=== PATIENT | male | born 1945 | race Caucasian/White ===

== ENCOUNTER 2020-08-05 11:09 | Inpatient (IN) | payer MEDICARE, MEDICAID, SELFPAY ==
[2020-08-05] VITALS (7 sets, daily range): BP systolic 149–180; BP diastolic 68–81; PULSE 64–103; RESP 17–22; TEMP 36.8–37.2; O2SAT 95–98; BMI 28.7
--- NOTE | 2020-08-05 11:50 | XR_ITS ---
EXAMINATION: XR CHEST CLINICAL INFORMATION: Weakness COMPARISON: None TECHNIQUE: Frontal view of the chest was obtained. FINDINGS: The cardiac silhouette is slightly enlarged. Hilar and mediastinal contours are unremarkable. There are increased markings seen in the right perihilar region and at the left lung base questionable for infiltrate/pneumonia. There is no pleural effusion or pneumothorax. There are degenerative changes of the spine. XR/XR chest 1V IMPRESSION: Enlarged cardiac silhouette. Question left base and right perihilar infiltrate/pneumonia.
--- NOTE | 2020-08-05 11:50 | ECG_ITS ---
Test Reason : ARRHYTHMIA Blood Pressure : / mmHG Vent. Rate : 064 BPM Atrial Rate : 082 BPM P-R Int : 000 ms QRS Dur : 096 ms QT Int : 396 ms P-R-T Axes : 000 -27 084 degrees QTc Int : 408 ms Sinus rhythm with 2nd degree A-V block (Mobitz I) Minimal voltage criteria for LVH, may be normal variant Nonspecific ST and T wave abnormality Abnormal ECG When compared with ECG of 05-AUG-2020 11:49, Sinus rhythm is now with 2nd degree A-V block (Mobitz I) Referred By: Tank Charles Electronically Signed By:ZOIE PATE
--- NOTE | 2020-08-05 11:54 | ED.WEAKNESS ---
HPI - Weakness General Chief complaint: Weakness Stated complaint: GENERAL WEAKNESS, AMS Time Seen by Provider: 08/05/20 11:36 Source: EMS Mode of arrival: EMS Limitations: language barrier (Primarily Bahamian) History of Present Illness HPI Narrative: This is a 75-year-old male who is primarily Bahamian-speaking presenting via EMS from home with complaint of generalized weakness ongoing for past 1 week. He lives at home with his son who reports that he has been feeling unwell for the past 1 week he has been sleeping more complaining of body aches has had a several episodes of diarrhea and lack of energy. States he was concern for COVID-19 so the son came to the emergency room couple days ago had a COVID test that was negative and given the continued symptoms that prompt him to call the ambulance to be evaluated in the ED. per the son patient has not been to his primary care doctor in over 15 years is not currently taking any medication does not know if he has any medical problems. Related Data Home Medications Medication Instructions Recorded Confirmed No Known Home Meds 08/05/20 08/05/20 Allergies Allergy/AdvReac Type Severity Reaction Status Date / Time No Known Allergies Allergy Verified 08/05/20 11:46 Review of Systems Review of Systems: Constitutional: No Weight loss, No Fever, + Chills, No Night Sweats, + Fatigue, No Malaise ENT/Mouth: No Hearing loss, No Ear Pain, No Nasal Congestion, No Sinus Pain, No Hoarseness, No sore throat, No Rhinorrhea, No Swallowing Difficulty Eyes: No Eye Pain, No Swelling, No Redness, No Foreign Body, No Discharge, No Vision Changes Cardiovascular: No Chest Pain, No SOB, No Dyspnea on Exertion, No Orthopnea, No Edema, No Palpitations Respiratory: No Cough, No Sputum, No Wheezing, No Smoke Exposure, No Dyspnea Gastrointestinal: No Nausea, No Vomiting, + several episodes over the past few days Diarrhea, No Constipation, No abdominal Pain, No Hematochezia, No Melena Genitourinary: No Dysuria, No Urinary Frequency, No Hematuria, No Urinary Incontinence, No Urgency, No Flank Pain, No Urinary Flow Changes, No Hesitancy Musculoskeletal: No joint pain, + Myalgias, No Joint Swelling Skin: No Skin Lesions, No rash Neuro: No Weakness, No Numbness, No Paresthesias, No Loss of Consciousness, No Dizziness, No Headache Psych: No Social Issues Heme/Lymph: No Bruising, No Bleeding,No Lymphadenopathy Endocrine: No Polyuria, No Polydipsia, No Temperature Intolerance Yes all other systems are reviewed and are negative [facility] Social History Social History (Updated 08/05/20 @ 16:47 by Krystle Bosch NP) Household Members Other:: Lives with step son Alcohol intake: unknown Smoking Status: Unknown if ever smoked Last Used Substance: Unknown Advance Directives: No Advance Directives Information Provided: No Physical Exam Vital Signs: Vital Signs: Last Vital Signs Temp 98.2 F 08/05/20 15:48 Pulse 64 08/05/20 15:48 Resp 17 08/05/20 15:48 BP 171/72 H 08/05/20 15:48 Pulse Ox 95 08/05/20 15:48 Body Mass Index 28.7 Reviewed Const: Other: Lethargic appearing General: cooperative; No acute distress or intoxicated appearing Nutritional Appearance: average body habitus Orientation/consciousness: patient oriented x3 HENMT: Head: Yes normal to inspection Ears: hearing grossly normal bilaterally Eyes: General: appearance normal, both eyes and all related structures Visual Haines: normal visual haines by confrontation Neck: Neck: Yes normal visual inspection, No positive Brudzinski's sign, No positive Kernig's sign and No tender Thyroid: Thyroid normal Chest: Chest palpation & inspection: normal inspection of the chest Resp: Effort & Inspection: normal respiratory effort Auscultation: clear to auscultation bilaterally Cardio: Jugular venous distension: no JVD Rate: regular rate Rhythm: regular rhythm Heart sounds: S1 normal heart sound present and S2 normal heart sound present GI: Inspection: Yes normal to inspection Percussion: Yes normal to percussion Auscultation: normal bowel sounds : General: Yes no CVA tenderness Back/Spine/Pelvis: Back: no CVA tenderness Skin: General skin exam: no rashes or lesions noted Neuro: General: patient oriented x3 Extrem: General: Yes normal to inspection Course Reevaluation(s) Reevaluation #1: 1255 Call from lab with critical value of troponin of 174 Patient denies any chest pain or shortness of breath. Will discuss case with cardiology. Consultations Consultation #1: Case discussed with Dr. Welch cardiology recommendation for serial tropes. Given atypical less likely cardiac in etiology would not recommend anticoagulation. Will touch base after repeat troponin. Consultation #2: Repeat EKG question Issa repeat troponin without significant delta. Case discussed with cardiology Dr. Welch. From cardiac standpoint no indication to anticoagulate. Will monitor. Consultation #3: Case discussed with hospitalist for admission. MDM - Weakness Differential Diagnosis Differential diagnosis: Likely rhabdomyolysis, sepsis and dehydration (viral syndrome, COVID-19, electrolyte derangement) Medical Records Attestation: I reviewed the patient's medical records. Medical records narrative: Has isolated visit in 2012 otherwise no previous record here. Lab Data Attestation: I reviewed the patient's lab results. Result diagrams: 08/05/20 12:16 08/05/20 12:15 Labs: Lab Results 08/05/20 08/05/20 08/05/20 Range/Units 12:14 12:15 12:15 WBC (4.8-10.8) X10*3/uL RBC (4.60-5.80) X10*6/uL Hgb (14.0-18.0) g/dl Hct (42-52) % MCV (80-98) fL MCH (27.0-33.0) pg MCHC (31.0-36.0) g/dl RDW (11.0-16.0) % Plt Count (160-400) X10*3/uL MPV (9.4-12.4) fL Immature Gran % (Auto) (0.0-0.4) % Neut % (Auto) (45-73) % Lymph % (Auto) (20-40) % Martin % (Auto) (2-11) % Eos % (Auto) (0-4) % Baso % (Auto) (0-2) % Lymph # (Auto) (1.2-4.9) X10*3/uL Martin # (Auto) (0.1-1.2) X10*3/uL Eos # (Auto) (0.0-0.4) X10*3/uL Baso # (Auto) (0.0-0.2) X10*3/uL Abs Immat Gran (auto) (0.00-0.03) X10*3/uL Absolute Neuts (auto) (2.0-8.3) X10*3/uL Absolute Nucleated RBC (0.0-0.012) X10*3/uL Nucleated RBC % (auto) (0.0-0.2) /100WBC PT 15.6 H (10.8-13.0) SEC INR 1.3 H (0.9-1.1) D-Dimer 2463 NG/ML Sodium 143 (135-145) mmol/L Potassium 3.8 (3.3-5.1) mmol/l Chloride 104 (96-108) mmol/L Carbon Dioxide 24 (22-29) mmol/L Anion Gap 19 (12-20) BUN 21 H (9-16) mg/dL Creatinine 1.13 (0.5-1.4) mg/dL Estim Creat Clear Calc 65.9 Estimated GFR > 60 POC Glucose 210 H (60-115) mg/dL Random Glucose 234 H (60-115) mg/dL Estimat Average Glucose mg/dL Hemoglobin A1c % % Lactic Acid (0.5-2.0) mmol/L Calcium 9.4 (8.4-10.2) mg/dL Ferritin 2075 H (20-250) ng/mL Total Bilirubin 0.5 (0.0-1.0) mg/dL AST 54 H (5-37) U/L ALT 32 (0-40) U/L Alkaline Phosphatase 53 (39-117) U/L Lactate Dehydrogenase 340 H (118-273) U/L Total Creatine Kinase (38-174) U/L Troponin I High Sens (<3.5-35.0) ng/L C-Reactive Protein 13.28 H (< or = 0.50) mg/dL Total Protein 7.9 (6.5-8.0) g/dL Albumin 4.2 (3.5-5.0) g/dL Procalcitonin ng/mL Coronavirus (PCR) (Negative) Influenza Type A (PCR) (Negative) Influenza Type B (PCR) (Negative) RSV RNA Qual (PCR) (Negative) 08/05/20 08/05/20 08/05/20 Range/Units 12:15 12:15 12:16 WBC (4.8-10.8) X10*3/uL RBC (4.60-5.80) X10*6/uL Hgb (14.0-18.0) g/dl Hct (42-52) % MCV (80-98) fL MCH (27.0-33.0) pg MCHC (31.0-36.0) g/dl RDW (11.0-16.0) % Plt Count (160-400) X10*3/uL MPV (9.4-12.4) fL Immature Gran % (Auto) (0.0-0.4) % Neut % (Auto) (45-73) % Lymph % (Auto) (20-40) % Martin % (Auto) (2-11) % Eos % (Auto) (0-4) % Baso % (Auto) (0-2) % Lymph # (Auto) (1.2-4.9) X10*3/uL Martin # (Auto) (0.1-1.2) X10*3/uL Eos # (Auto) (0.0-0.4) X10*3/uL Baso # (Auto) (0.0-0.2) X10*3/uL Abs Immat Gran (auto) (0.00-0.03) X10*3/uL Absolute Neuts (auto) (2.0-8.3) X10*3/uL Absolute Nucleated RBC (0.0-0.012) X10*3/uL Nucleated RBC % (auto) (0.0-0.2) /100WBC PT (10.8-13.0) SEC INR (0.9-1.1) D-Dimer NG/ML Sodium (135-145) mmol/L Potassium (3.3-5.1) mmol/l Chloride (96-108) mmol/L Carbon Dioxide (22-29) mmol/L Anion Gap (12-20) BUN (9-16) mg/dL Creatinine (0.5-1.4) mg/dL Estim Creat Clear Calc Estimated GFR POC Glucose (60-115) mg/dL Random Glucose (60-115) mg/dL Estimat Average Glucose mg/dL Hemoglobin A1c % % Lactic Acid (0.5-2.0) mmol/L Calcium (8.4-10.2) mg/dL Ferritin (20-250) ng/mL Total Bilirubin (0.0-1.0) mg/dL AST (5-37) U/L ALT (0-40) U/L Alkaline Phosphatase (39-117) U/L Lactate Dehydrogenase (118-273) U/L Total Creatine Kinase 934 H (38-174) U/L Troponin I High Sens 175.7 H (<3.5-35.0) ng/L C-Reactive Protein (< or = 0.50) mg/dL Total Protein (6.5-8.0) g/dL Albumin (3.5-5.0) g/dL Procalcitonin ng/mL Coronavirus (PCR) POSITIVE A (Negative) Influenza Type A (PCR) NEGATIVE (Negative) Influenza Type B (PCR) NEGATIVE (Negative) RSV RNA Qual (PCR) NEGATIVE (Negative) 08/05/20 08/05/20 08/05/20 Range/Units 12:16 12:21 13:05 WBC 8.8 (4.8-10.8) X10*3/uL RBC 5.34 (4.60-5.80) X10*6/uL Hgb 14.8 (14.0-18.0) g/dl Hct 45.4 (42-52) % MCV 85.0 (80-98) fL MCH 27.7 (27.0-33.0) pg MCHC 32.6 (31.0-36.0) g/dl RDW 13.7 (11.0-16.0) % Plt Count 206 (160-400) X10*3/uL MPV 12.0 (9.4-12.4) fL Immature Gran % (Auto) 0.2 (0.0-0.4) % Neut % (Auto) 64.0 (45-73) % Lymph % (Auto) 25.1 (20-40) % Martin % (Auto) 10.6 (2-11) % Eos % (Auto) 0.0 (0-4) % Baso % (Auto) 0.1 (0-2) % Lymph # (Auto) 2.2 (1.2-4.9) X10*3/uL Martin # (Auto) 0.9 (0.1-1.2) X10*3/uL Eos # (Auto) 0.0 (0.0-0.4) X10*3/uL Baso # (Auto) 0.0 (0.0-0.2) X10*3/uL Abs Immat Gran (auto) 0.02 (0.00-0.03) X10*3/uL Absolute Neuts (auto) 5.6 (2.0-8.3) X10*3/uL Absolute Nucleated RBC 0.000 (0.0-0.012) X10*3/uL Nucleated RBC % (auto) 0.0 (0.0-0.2) /100WBC PT (10.8-13.0) SEC INR (0.9-1.1) D-Dimer NG/ML Sodium (135-145) mmol/L Potassium (3.3-5.1) mmol/l Chloride (96-108) mmol/L Carbon Dioxide (22-29) mmol/L Anion Gap (12-20) BUN (9-16) mg/dL Creatinine (0.5-1.4) mg/dL Estim Creat Clear Calc Estimated GFR POC Glucose (60-115) mg/dL Random Glucose (60-115) mg/dL Estimat Average Glucose mg/dL Hemoglobin A1c % % Lactic Acid 1.7 (0.5-2.0) mmol/L Calcium (8.4-10.2) mg/dL Ferritin (20-250) ng/mL Total Bilirubin (0.0-1.0) mg/dL AST (5-37) U/L ALT (0-40) U/L Alkaline Phosphatase (39-117) U/L Lactate Dehydrogenase (118-273) U/L Total Creatine Kinase (38-174) U/L Troponin I High Sens (<3.5-35.0) ng/L C-Reactive Protein (< or = 0.50) mg/dL Total Protein (6.5-8.0) g/dL Albumin (3.5-5.0) g/dL Procalcitonin 0.21 ng/mL Coronavirus (PCR) (Negative) Influenza Type A (PCR) (Negative) Influenza Type B (PCR) (Negative) RSV RNA Qual (PCR) (Negative) 08/05/20 08/05/20 Range/Units 14:32 16:28 WBC (4.8-10.8) X10*3/uL RBC (4.60-5.80) X10*6/uL Hgb (14.0-18.0) g/dl Hct (42-52) % MCV (80-98) fL MCH (27.0-33.0) pg MCHC (31.0-36.0) g/dl RDW (11.0-16.0) % Plt Count (160-400) X10*3/uL MPV (9.4-12.4) fL Immature Gran % (Auto) (0.0-0.4) % Neut % (Auto) (45-73) % Lymph % (Auto) (20-40) % Martin % (Auto) (2-11) % Eos % (Auto) (0-4) % Baso % (Auto) (0-2) % Lymph # (Auto) (1.2-4.9) X10*3/uL Martin # (Auto) (0.1-1.2) X10*3/uL Eos # (Auto) (0.0-0.4) X10*3/uL Baso # (Auto) (0.0-0.2) X10*3/uL Abs Immat Gran (auto) (0.00-0.03) X10*3/uL Absolute Neuts (auto) (2.0-8.3) X10*3/uL Absolute Nucleated RBC (0.0-0.012) X10*3/uL Nucleated RBC % (auto) (0.0-0.2) /100WBC PT (10.8-13.0) SEC INR (0.9-1.1) D-Dimer NG/ML Sodium (135-145) mmol/L Potassium (3.3-5.1) mmol/l Chloride (96-108) mmol/L Carbon Dioxide (22-29) mmol/L Anion Gap (12-20) BUN (9-16) mg/dL Creatinine (0.5-1.4) mg/dL Estim Creat Clear Calc Estimated GFR POC Glucose (60-115) mg/dL Random Glucose (60-115) mg/dL Estimat Average Glucose 183 mg/dL Hemoglobin A1c % 8.0 % Lactic Acid (0.5-2.0) mmol/L Calcium (8.4-10.2) mg/dL Ferritin (20-250) ng/mL Total Bilirubin (0.0-1.0) mg/dL AST (5-37) U/L ALT (0-40) U/L Alkaline Phosphatase (39-117) U/L Lactate Dehydrogenase (118-273) U/L Total Creatine Kinase (38-174) U/L Troponin I High Sens 190.0 H (<3.5-35.0) ng/L C-Reactive Protein (< or = 0.50) mg/dL Total Protein (6.5-8.0) g/dL Albumin (3.5-5.0) g/dL Procalcitonin ng/mL Coronavirus (PCR) (Negative) Influenza Type A (PCR) (Negative) Influenza Type B (PCR) (Negative) RSV RNA Qual (PCR) (Negative) Imaging Data CTA chest: Radiologist's impression: Angel Hagan 75 M [address] [place] [address] [address] Scan Report Signed Patient: Jame Hagan#: [id number] : 5Acct:[id number] Age/Sex: 75 / MADM Date: 08/05/20 Loc: .ED Attending Dr: Ordering Physician: Preston Jiménez NP Date of Service: 08/05/20 Procedure(s): CT angio chest PE protocol Accession Number(s): [id number] cc: Preston Jiménez [employer]CHO[employer]ARD~ EXAMINATION: CT ANGIOGRAM OF THE CHEST WITH AND WITHOUT CONTRAST (CT PULMONARY ANGIOGRAM FOR PE) CLINICAL INFORMATION: Reason for Exam Weakness/ hypoxia/ elevated ddimer COMPARISON: None TECHNIQUE: Prior to contrast administration, noncontrast localization images were obtained. Subsequently, multidetector volumetric imaging was performed from the thoracic inlet to below the diaphragms following the administration of 80 mL Omnipaque 350 intravenous contrast. No contrast reaction reported Sagittal, coronal, and MIP oblique sagittal reformatted images were obtained on the CT workstation, uploaded to PACS, and reviewed. This CT examination was performed using dose optimization techniques as appropriate, variously including the following: *Automated exposure control *Adjustment of mA and/or kV according to patient size (this includes techniques or standardized protocols for targeted exams where dose is matched to indication/reason for exam; i.e. extremities or head) *Use of iterative reconstruction technique Total exam dose-length product 373 mGy-cm FINDINGS: QUALITY OF STUDY/CONTRAST BOLUS: Satisfactory. PULMONARY ARTERIES: No central or segmental pulmonary emboli. THORACIC AORTA: No aneurysm or dissection. LUNG: The lungs are well-expanded with multiple patchy groundglass opacities seen in both lower lobes and upper lobes and lingula suggestive of inflammatory process. No consolidation seen. PLEURA: No pleural effusion or pneumothorax. MEDIASTINUM: Normal heart size. No pericardial effusion. No hilar or mediastinal lymphadenopathy. No evidence of septal bowing or right heart strain. CHEST WALL/AXILLA: No axillary or internal mammary lymphadenopathy. OSSEOUS STRUCTURES: There is moderate ventral spondylosis mid and lower dorsal spine. No lytic process seen. UPPER ABDOMEN: Visualized liver, spleen, pancreas and bilateral adrenal glands are unremarkable. There is a small 1.870 cyst upper pole left kidney. No reflux of contrast into the hepatic veins to suggest elevated right heart pressures. CT/CT angio chest PE protocol IMPRESSION: No evidence of PE. No evidence of aortic dissection or aneurysm. Diffuse groundglass opacities seen in both lungs suggestive of inflammatory process likely related to Covid disease. Correlate with vertical exam. 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 FINDINGS: The cardiac silhouette is slightly enlarged. Hilar and mediastinal contours are unremarkable. There are increased markings seen in the right perihilar region and at the left lung base questionable for infiltrate/pneumonia. There is no pleural effusion or pneumothorax. There are degenerative changes of the spine. XR/XR chest 1V IMPRESSION: Enlarged cardiac silhouette. Question left base and right perihilar infiltrate/pneumonia. Dictated By:JULIEN SHAFFER MD Signed By:<Electronically signed by JULIEN SHAFFER MD in OV>08/05/20 1214 DD/ 1150 TD/TT: Professor Of Physics: ANAYA ECG Data Interpretation: EKG 1. Normal sinus rhythm Criteria for LVH Nonspecific T-wave abnormalities No previous EKG 2. Sinus rhythm with 2nd degree A-V block (Mobitz I) Minimal voltage criteria for LVH, may be normal variant Nonspecific ST and T wave abnormality Abnormal ECG When compared with ECG of 05-AUG-2020 11:49, Sinus rhythm is now with 2nd degree A-V block (Mobitz I) QT has shortened Discharge Plan Discharge Clinical Impression: COVID-19, Elevated troponin, Weakness Patient Disposition: Admitted As Inpatient
[2020-08-05 12:18] LABS: Glucose, Whole Blood 210 mg/dL (60-115)
--- NOTE | 2020-08-05 12:22 | PC.NURSE ---
IV inserted and labs obtained includig COVID swab.
[2020-08-05 12:23] LABS: MANUAL DIFF FLAG NO
[2020-08-05 12:24] LABS: Basophils Percent Auto 0.1 % (0-2); Hematocrit 45.4 % (42-52); Hemoglobin 14.8 g/dl (14.0-18.0); Imm Gran Abs Auto 0.02 X10*3/uL (0.00-0.03); Imm Gran Pct Auto 0.2 % (0.0-0.4); Lymphocytes Absolute Auto 2.2 X10*3/uL (1.2-4.9); Lymphocytes Percent Auto 25.1 % (20-40); Mean Corpuscular HGB Conc 32.6 g/dl (31.0-36.0); Mean Corpuscular Hemoglobin 27.7 pg (27.0-33.0); Monocytes Absolute Auto 0.9 X10*3/uL (0.1-1.2); Monocytes Percent Auto 10.6 % (2-11); Neutrophils Absolute Auto 5.6 X10*3/uL (2.0-8.3); Platelet Count 206 X10*3/uL (160-400); Red Blood Count 5.34 X10*6/uL (4.60-5.80); Red Cell Distribution Width 13.7 % (11.0-16.0); White Blood Count 8.8 X10*3/uL (4.8-10.8)
[2020-08-05 12:34] LABS: INTERNATIONAL NORM RATIO 1.3 (0.9-1.1); Prothrombin Time 15.6 SEC (10.8-13.0)
[2020-08-05] MEDS: 0.9 % Sodium Chloride 500 ML IV (12:41)
[2020-08-05 12:47] LABS: Alanine Aminotransferase 32 U/L (0-40); Albumin Level 4.2 g/dL (3.5-5.0); Alkaline Phosphatase 53 U/L (39-117); Anion Gap 19 (12-20); Aspartate Amino Transferase 54 U/L (5-37); Bilirubin Total 0.5 mg/dL (0.0-1.0); Blood Urea Nitrogen 21 mg/dL (9-16); Calcium 9.4 mg/dL (8.4-10.2); Carbon Dioxide 24 mmol/L (22-29); Chloride 104 mmol/L (96-108); Creatinine Clr Calc Pharmacy 65.9; Estimated Glomerular Filt Rate > 60; Glucose Random 234 mg/dL (60-115); Potassium 3.8 mmol/l (3.3-5.1); Sodium 143 mmol/L (135-145); Total Protein 7.9 g/dL (6.5-8.0)
[2020-08-05 12:53] LABS: Troponin-I High Sensitivity 175.7 ng/L (<3.5-35.0)
[2020-08-05 13:15] LABS: C Reactive Protein 13.28 mg/dL (< or = 0.50); Lactate Dehydrogenase 340 U/L (118-273)
[2020-08-05 13:20] LABS: D Dimer 2463 NG/ML
[2020-08-05 13:31] LABS: Lactic Acid 1.7 mmol/L (0.5-2.0)
--- NOTE | 2020-08-05 13:37 | CT_ITS ---
EXAMINATION: CT ANGIOGRAM OF THE CHEST WITH AND WITHOUT CONTRAST (CT PULMONARY ANGIOGRAM FOR PE) CLINICAL INFORMATION: Reason for Exam Weakness/ hypoxia/ elevated ddimer COMPARISON: None TECHNIQUE: Prior to contrast administration, noncontrast localization images were obtained. Subsequently, multidetector volumetric imaging was performed from the thoracic inlet to below the diaphragms following the administration of 80 mL Omnipaque 350 intravenous contrast. No contrast reaction reported Sagittal, coronal, and MIP oblique sagittal reformatted images were obtained on the CT workstation, uploaded to PACS, and reviewed. This CT examination was performed using dose optimization techniques as appropriate, variously including the following: *Automated exposure control *Adjustment of mA and/or kV according to patient size (this includes techniques or standardized protocols for targeted exams where dose is matched to indication/reason for exam; i.e. extremities or head) *Use of iterative reconstruction technique Total exam dose-length product 373 mGy-cm FINDINGS: QUALITY OF STUDY/CONTRAST BOLUS: Satisfactory. PULMONARY ARTERIES: No central or segmental pulmonary emboli. THORACIC AORTA: No aneurysm or dissection. LUNG: The lungs are well-expanded with multiple patchy groundglass opacities seen in both lower lobes and upper lobes and lingula suggestive of inflammatory process. No consolidation seen. PLEURA: No pleural effusion or pneumothorax. MEDIASTINUM: Normal heart size. No pericardial effusion. No hilar or mediastinal lymphadenopathy. No evidence of septal bowing or right heart strain. CHEST WALL/AXILLA: No axillary or internal mammary lymphadenopathy. OSSEOUS STRUCTURES: There is moderate ventral spondylosis mid and lower dorsal spine. No lytic process seen. UPPER ABDOMEN: Visualized liver, spleen, pancreas and bilateral adrenal glands are unremarkable. There is a small 1.870 cyst upper pole left kidney. No reflux of contrast into the hepatic veins to suggest elevated right heart pressures. CT/CT angio chest PE protocol IMPRESSION: No evidence of PE. No evidence of aortic dissection or aneurysm. Diffuse groundglass opacities seen in both lungs suggestive of inflammatory process likely related to Covid disease. Correlate with vertical exam. VTE: Negative
[2020-08-05 13:38] LABS: Procalcitonin 0.21 ng/mL
[2020-08-05 13:59] LABS: Influenza A PCR NEGATIVE (Negative); Influenza B PCR NEGATIVE (Negative); Resp Syncy Virus RNA Qual PCR NEGATIVE (Negative)
[2020-08-05 14:13] LABS: SARS COV2 PCR INHOUSE POSITIVE (Negative)
[2020-08-05 14:20] LABS: Ferritin 2075 ng/mL (20-250)
--- NOTE | 2020-08-05 14:32 | PC.NURSE ---
Pt noted to be in a mobitz 1 heart block on the monitor. EKG obtained for confirmation. LEASING PROFESSIONAL aware. Repeat Troponin drawn.
[2020-08-05] MEDS: iohexoL 350 MG/ML 100 ML INFUS..BTL IV (14:59)
--- NOTE | 2020-08-05 15:53 | PC.NURSE ---
patient awake/alert watching tv, manager monitoring intact, pts vss, will continue to monitor.
--- NOTE | 2020-08-05 16:13 | PM.EVENT ---
Event Note Date of Service: 08/06/20 Event Note: Patient seen examined Patient as per ED physician has 6-7 days of symptoms-generalized weakness Denies any chest pain or shortness of breath or abdominal pain or fever or chills Somewhat vague in answering questions but otherwise could able to answer most of the questions. Also before having starting the symptoms patient was more active , but progressively getting generalized weak. Lab imaging , ekgreviewed Elevated LDH, C-reactive protein, D-dimer, elevated troponin, procalcitonin level 0.21, elevated CPK, EKG shows Mobitz type 1 CT shows bilateral lung opacities consistent with COVID. Mild hyperglycemia Physical exam: Cvs: rrr, [id number] , no murmur res: Fair air entry, no rales or wheezing abd: no rebound or guarding ,nt, bs present. ext pulses present , no cyanosis neuro: axo3 , nonfocal. In the ED found to have: Imaging patten probably COVID infection/pneumonia This patient is seen and examined with APC. Physical exam and assessment and plan coordinated in APCs note, In addition: COVID infection patten: Patient was given Decadron and antibiotics in ED Id evaluation Continue Decadron antibiotics CT negative for PE ED physician sandor-chastity unclear etiology? covid Mobitz type 1? Significance does not clear patient is asymptomatic currently. Will continue to monitor Will add cardiology evaluation. Hyperglycemia: Check hemoglobin A1c patient did not go to any doctor from many years. Elevated blood pressure : monitor blood pressure for now: If consistently elevated than may need to add antihypertensive.
[2020-08-05] MEDS: cefTRIAXone sodium 1 GM in 0.9 % Sodium Chloride 50 ML IV (16:18)
[2020-08-05] MEDS: dexAMETHasone sod phosphate 4 MG/ML VIAL 6 MG IVPUSH (16:19)
--- NOTE | 2020-08-05 16:23 | P.HPHOSP_ITS ---
History of Present Illness Date of Service: 08/05/20 Chief Complaint: WEAKNESS 75 year old man presenting with weakness. According to his step son, with whom he lives, (Angel Bernal [phone]) he has been very weak, shaking and slow to respond. He also mentioned that the patient had told him he was having diarrhea but he did not say that during the interview. Apparently the patient is usually more lively and communicative. His Covid PCR was positive, CT showed diffuse groundglass opacities. He had no fever or WBC. He was not requiring oxygen. He was given Rocephin, Azithromycin, decadron. He will be admitted for further management of Covid 19. Review of Systems Review of Systems: Denies any recent fever chills or decrease in appetite respiratory denies any shortness of breath coverage production cardiovascular is adjustment of any PND or edema gastrointestinal denies any dysphagia abdominal pain nausea vomiting or diarrhea genitourinary denies any dysuria frequency or hematuria musculoskeletal denies any joint pain or swelling neuropsych denies any weakness or seizures all other systems reviewed are negative PMFSH Cognitive capacity: Reports no medical problems however, he has not seen a PCP in 5 years Pertinent family history: unable to give details. Social History (Updated 08/05/20 @ 16:47 by Krystle Bosch NP) Household Members Other:: Lives with step son Alcohol intake: unknown Smoking Status: Unknown if ever smoked Last Used Substance: Unknown Advance Directives: No Advance Directives Information Provided: No Meds Allergies Allergy/AdvReac Type Severity Reaction Status Date / Time No Known Allergies Allergy Verified 08/05/20 11:46 Home Medications Medication Instructions Recorded Confirmed Type No Known Home Meds 08/05/20 08/05/20 History Physical Exam Vital Signs and Narrative: Vital Signs: Last Vital Signs Temp 98.2 F 08/05/20 15:48 Pulse 64 08/05/20 15:48 Resp 17 08/05/20 15:48 BP 171/72 H 08/05/20 15:48 Pulse Ox 95 08/05/20 15:48 Body Mass Index 28.7 Appearing in no acute distress, somewhat slow to respond head is normocephalic atraumatic eyes pupils are PERRLA sclera is anicteric mouth throat mucous membranes are intact and moist neck is supple no lymphadenopathy, no JVD noted lung sounds normal expansion heart regular rate abdomen is soft, nontender neuro patient is alert x3, no focal deficits Results Labs CBC and Chem 7: 08/05/20 12:16 08/05/20 12:15 Labs: Laboratory Results - last 24 hr 08/05/20 08/05/20 08/05/20 12:14 12:15 12:15 MCV MCH MCHC RDW Plt Count MPV Immature Gran % (Auto) Neut % (Auto) Lymph % (Auto) [place] % (Auto) Eos % (Auto) Baso % (Auto) Lymph # (Auto) [place] # (Auto) Eos # (Auto) Baso # (Auto) Abs Immat Gran (auto) Absolute Neuts (auto) Absolute Nucleated RBC Nucleated RBC % (auto) PT 15.6 H INR 1.3 H D-Dimer 2463 Anion Gap 19 Estim Creat Clear Calc 65.9 Estimated GFR > 60 POC Glucose 210 H Random Glucose 234 H Lactic Acid Calcium 9.4 Ferritin 2075 H Total Bilirubin 0.5 AST 54 H ALT 32 Alkaline Phosphatase 53 Lactate Dehydrogenase 340 H Total Creatine Kinase Troponin I High Sens C-Reactive Protein 13.28 H Total Protein 7.9 Albumin 4.2 Procalcitonin Coronavirus (PCR) Influenza Type A (PCR) Influenza Type B (PCR) RSV RNA Qual (PCR) 08/05/20 08/05/20 08/05/20 12:15 12:15 12:16 MCV MCH MCHC RDW Plt Count MPV Immature Gran % (Auto) Neut % (Auto) Lymph % (Auto) [place] % (Auto) Eos % (Auto) Baso % (Auto) Lymph # (Auto) [place] # (Auto) Eos # (Auto) Baso # (Auto) Abs Immat Gran (auto) Absolute Neuts (auto) Absolute Nucleated RBC Nucleated RBC % (auto) PT INR D-Dimer Anion Gap Estim Creat Clear Calc Estimated GFR POC Glucose Random Glucose Lactic Acid Calcium Ferritin Total Bilirubin AST ALT Alkaline Phosphatase Lactate Dehydrogenase Total Creatine Kinase 934 H Troponin I High Sens 175.7 H C-Reactive Protein Total Protein Albumin Procalcitonin Coronavirus (PCR) POSITIVE A Influenza Type A (PCR) NEGATIVE Influenza Type B (PCR) NEGATIVE RSV RNA Qual (PCR) NEGATIVE 08/05/20 08/05/20 08/05/20 12:16 12:21 13:05 MCV 85.0 MCH 27.7 MCHC 32.6 RDW 13.7 Plt Count 206 MPV 12.0 Immature Gran % (Auto) 0.2 Neut % (Auto) 64.0 Lymph % (Auto) 25.1 [place] % (Auto) 10.6 Eos % (Auto) 0.0 Baso % (Auto) 0.1 Lymph # (Auto) 2.2 [place] # (Auto) 0.9 Eos # (Auto) 0.0 Baso # (Auto) 0.0 Abs Immat Gran (auto) 0.02 Absolute Neuts (auto) 5.6 Absolute Nucleated RBC 0.000 Nucleated RBC % (auto) 0.0 PT INR D-Dimer Anion Gap Estim Creat Clear Calc Estimated GFR POC Glucose Random Glucose Lactic Acid 1.7 Calcium Ferritin Total Bilirubin AST ALT Alkaline Phosphatase Lactate Dehydrogenase Total Creatine Kinase Troponin I High Sens C-Reactive Protein Total Protein Albumin Procalcitonin 0.21 Coronavirus (PCR) Influenza Type A (PCR) Influenza Type B (PCR) RSV RNA Qual (PCR) 08/05/20 14:32 MCV MCH MCHC RDW Plt Count MPV Immature Gran % (Auto) Neut % (Auto) Lymph % (Auto) [place] % (Auto) Eos % (Auto) Baso % (Auto) Lymph # (Auto) [place] # (Auto) Eos # (Auto) Baso # (Auto) Abs Immat Gran (auto) Absolute Neuts (auto) Absolute Nucleated RBC Nucleated RBC % (auto) PT INR D-Dimer Anion Gap Estim Creat Clear Calc Estimated GFR POC Glucose Random Glucose Lactic Acid Calcium Ferritin Total Bilirubin AST ALT Alkaline Phosphatase Lactate Dehydrogenase Total Creatine Kinase Troponin I High Sens 190.0 H C-Reactive Protein Total Protein Albumin Procalcitonin Coronavirus (PCR) Influenza Type A (PCR) Influenza Type B (PCR) RSV RNA Qual (PCR) Imaging Radiologist's Impressions: Impressions Chest X-Ray 08/05/20 11:50 IMPRESSION: Enlarged cardiac silhouette. Question left base and right perihilar infiltrate/pneumonia. Chest CTA 08/05/20 13:37 IMPRESSION: No evidence of PE. No evidence of aortic dissection or aneurysm. Diffuse groundglass opacities seen in both lungs suggestive of inflammatory process likely related to Covid disease. Correlate with vertical exam. VTE: Negative Assessment and Plan (1) COVID-19: Status: Acute 75 year old man admitted with weakness and covid 19 related pna. CAP secondary to covid 19. Rocephin, azithromycin, decadron, ID consult, isolation. Supplemental oxygen as needed. Elevated troponin with Wenckebach on EKG. No chest pain, case discussed with cardiology, less likely ACS, will repeat troponin this evening and EKG. MOnitor on Telemetry. Weakness. Will need PT consult. Elevated blood pressure reading. No hx of hypertension. Will follow blood pressure closely Elevated glucose level. AIC 8.0, will start sliding scale, ADA diet DVT prophylaxis with Lovenox. Discussed with Dr. Solorzano Full code
[2020-08-05 16:44] LABS: Estimated Average Glucose 183 mg/dL
[2020-08-05] MEDS: Azithromycin 500 MG in 0.9 % Sodium Chloride 250 ML 125 MG IV (17:06)
[2020-08-05] MEDS: Enoxaparin Sodium 40 MG/0.4 ML SYRINGE SUBCUT (17:08)
--- NOTE | 2020-08-05 18:00 | ECG_ITS ---
Test Reason : RHYTHM CHNGE Blood Pressure : / mmHG Vent. Rate : 059 BPM Atrial Rate : 081 BPM P-R Int : 000 ms QRS Dur : 092 ms QT Int : 396 ms P-R-T Axes : 000 -34 088 degrees QTc Int : 392 ms Sinus rhythm with 2nd degree A-V block (Mobitz I) Left axis deviation Minimal voltage criteria for LVH, may be normal variant Nonspecific T wave abnormality Abnormal ECG When compared with ECG of 05-AUG-2020 14:14, No significant change was found Referred By: Tank Charles Electronically Signed By:ZOIE PATE
--- NOTE | 2020-08-05 18:04 | ECG_ITS ---
Test Reason : WEAKNESS Blood Pressure : / mmHG Vent. Rate : 081 BPM Atrial Rate : 081 BPM P-R Int : 202 ms QRS Dur : 096 ms QT Int : 396 ms P-R-T Axes : 067 -31 091 degrees QTc Int : 460 ms Normal sinus rhythm with sinus arrhythmia Left axis deviation Moderate voltage criteria for LVH, may be normal variant Nonspecific ST and T wave abnormality Abnormal ECG No previous ECGs available Referred By: Tank Charles Electronically Signed By:ZOIE PATE
[2020-08-05] MEDS: Insulin Lispro 100 UNIT/ML 3 ML VIAL SUBCUT (22:24)
--- NOTE | 2020-08-05 22:25 | PC.NURSE ---
patient awake/alert watching tv, vitals stable, greenhouse florist is currently nsr 80s, pt offers no c/o pain/discomfort, urinal at bedside, will continue to monitor.
[2020-08-05 23:56] LABS: Cholesterol 186 mg/dL; HDL Cholesterol 27 mg/dL; LDL Cholesterol Calculated 140 mg/dl; Lactate Dehydrogenase 289 U/L (118-273); Triglycerides 96 mg/dL
[2020-08-06] VITALS (7 sets, daily range): BP systolic 125–176; BP diastolic 75–90; PULSE 62–94; RESP 16–20; TEMP 36.8–37.3; O2SAT 94–96
[2020-08-06 00:10] LABS: Troponin-I High Sensitivity 185.2 ng/L (<3.5-35.0)
[2020-08-06 00:14] LABS: Procalcitonin 0.16 ng/mL
[2020-08-06 00:51] LABS: Ferritin 2352 ng/mL (20-250)
[2020-08-06 06:03] LABS: Eosinophils Percent Auto 0.1 % (0-4); Imm Gran Abs Auto 0.03 X10*3/uL (0.00-0.03); Imm Gran Pct Auto 0.3 % (0.0-0.4); Lymphocytes Absolute Auto 2.7 X10*3/uL (1.2-4.9); Lymphocytes Percent Auto 28.6 % (20-40); Mean Corpuscular HGB Conc 32.6 g/dl (31.0-36.0); Mean Corpuscular Hemoglobin 27.6 pg (27.0-33.0); Mean Corpuscular Volume 84.8 fL (80-98); Mean Platelet Volume 11.9 fL (9.4-12.4); Monocytes Absolute Auto 0.7 X10*3/uL (0.1-1.2); Monocytes Percent Auto 7.4 % (2-11); Neutrophils Absolute Auto 5.9 X10*3/uL (2.0-8.3); Neutrophils Percent Auto 63.6 % (45-73); Platelet Count 206 X10*3/uL (160-400); Red Blood Count 5.07 X10*6/uL (4.60-5.80); Red Cell Distribution Width 13.9 % (11.0-16.0); White Blood Count 9.3 X10*3/uL (4.8-10.8)
[2020-08-06 06:04] LABS: MANUAL DIFF FLAG NO
[2020-08-06 06:05] LABS: Glucose Urine UA NEG (NEG); Leukocyte Esterase Urine NEG (NEG); Nitrite Urine NEG (NEG); Specific Gravity - Urine 1.025 (1.005-1.025); Urine Blood 2+ (NEG); Urine Ketones 15 MG/DL (NEG); Urine Protein 2+ MG/DL (NEG-TRACE)
[2020-08-06 06:07] LABS: Appearance Urine CLEAR; Color Urine AMBER
[2020-08-06 06:08] LABS: INTERNATIONAL NORM RATIO 1.3 (0.9-1.1); Prothrombin Time 15.6 SEC (10.8-13.0)
[2020-08-06 06:24] LABS: Granular Casts Urine 0-2 /LPF; Mucus Urine 1+ /LPF; RBC Urine 0 /HPF (0); Squamous Epithelial Cell Urine TRACE /LPF; WBC Urine 0-2 /HPF (0-4)
[2020-08-06 06:29] LABS: Anion Gap 17 (12-20); Blood Urea Nitrogen 20 mg/dL (9-16); Carbon Dioxide 22 mmol/L (22-29); Chloride 107 mmol/L (96-108); Creatinine Clr Calc Pharmacy 91.9; Estimated Glomerular Filt Rate > 60; Glucose Random 200 mg/dL (60-115); Sodium 142 mmol/L (135-145)
[2020-08-06 06:33] LABS: Troponin-I High Sensitivity 137.3 ng/L (<3.5-35.0)
[2020-08-06 06:41] LABS: Glucose, Whole Blood 149 mg/dL (60-115)
[2020-08-06 06:41] LABS: Glucose, Whole Blood 222 mg/dL (60-115)
--- NOTE | 2020-08-06 07:52 | PC.NURSE ---
report taken from gio cruz pt lying in bed, nad. able to reposition self w one assist. vss. given breakfast. poc glucose checked. wctm for discharge needs.
[2020-08-06 09:44] LABS: Glucose, Whole Blood 188 mg/dL (60-115)
[2020-08-06] MEDS: dexAMETHasone sod phosphate 4 MG/ML VIAL 6 MG IVPUSH (09:51)
[2020-08-06] MEDS: Famotidine/PF 20 MG/2 ML VIAL IVPUSH (09:51)
--- NOTE | 2020-08-06 10:04 | PC.NURSE ---
damper fitter at bedside to check up on pt, medicated per emar, requesting ice water, given. tolerating po w/o issue. wctm.
--- NOTE | 2020-08-06 10:32 | PM.CNCAR ---
History of Present Illness History of Present Illness Date of Service: 08/06/20 Consult reason: troponin elevation Chief complaint: weakness, covid 19 Narrative: This consultation is regarding elevated troponins. History is mainly obtained by the hospitalist documentation. Apparently, he is quite lively and communicative at baseline. He was found to be weak, shaking and slow to respond. In this context, COVID was positive and CT had shown diffuse ground-glass opacities. He was admitted for further care. There is slight elevation of troponin. Hence we have been asked to see him. Per the nurse taking care of him, he has not complained of any chest pain or any other cardiac symptoms at this time. Review of Systems Review of Systems: Yes Unobtainable due to mental status [facility] Family History Pertinent family history: Unable to obtain Social History Social History (Updated 08/05/20 @ 16:47 by Krystle Bosch NP) Household Members Other:: Lives with step son Alcohol intake: unknown Smoking Status: Unknown if ever smoked Last Used Substance: Unknown Advance Directives: No Advance Directives Information Provided: No Meds Allergies Allergy/AdvReac Type Severity Reaction Status Date / Time No Known Allergies Allergy Verified 08/05/20 11:46 Home Medications Medication Instructions Recorded Confirmed Type No Known Home Meds 08/05/20 08/05/20 History Physical Exam Vital Signs: Vital Signs: Last Vital Signs Temp 98.3 F 08/06/20 09:54 Pulse 81 08/06/20 09:54 Resp 18 08/06/20 09:54 BP 159/82 H 08/06/20 09:54 Pulse Ox 96 08/06/20 09:54 Body Mass Index 28.7 Const: General: comfortable and no acute distress HENMT: Other: Unremarkable Neck: Neck: Yes normal visual inspection Chest: Chest palpation & inspection: normal inspection of the chest Resp: Auscultation: clear to auscultation bilaterally, no crackles and no wheezes Cardio: Jugular venous distension: no JVD Palpation: normal PMI Heart sounds: S1 normal heart sound present, S2 normal heart sound present, no gallops, no murmurs and no rubs GI: Palpation (GI): Soft to palpation Back/Spine/Pelvis: Other: unremarkable Skin: General skin exam: no rashes or lesions noted Extrem: General: Yes no clubbing, cyanosis or edema Psych: Mental Status: mental status grossly normal Results Labs and Meds Result diagrams: 08/06/20 05:49 08/06/20 05:49 Lab results: Laboratory Results - last 24 hr 08/05/20 08/05/20 08/05/20 12:14 12:15 12:15 WBC RBC Hgb Hct MCV MCH MCHC RDW Plt Count MPV Immature Gran % (Auto) Neut % (Auto) Lymph % (Auto) [place] % (Auto) Eos % (Auto) Baso % (Auto) Lymph # (Auto) [place] # (Auto) Eos # (Auto) Baso # (Auto) Abs Immat Gran (auto) Absolute Neuts (auto) Absolute Nucleated RBC Nucleated RBC % (auto) PT 15.6 H INR 1.3 H D-Dimer 2463 Sodium 143 Potassium 3.8 Chloride 104 Carbon Dioxide 24 Anion Gap 19 BUN 21 H Creatinine 1.13 Estim Creat Clear Calc 65.9 Estimated GFR > 60 POC Glucose 210 H Random Glucose 234 H Estimat Average Glucose Hemoglobin A1c % Lactic Acid Calcium 9.4 Ferritin 2075 H Total Bilirubin 0.5 AST 54 H ALT 32 Alkaline Phosphatase 53 Lactate Dehydrogenase 340 H Total Creatine Kinase Troponin I High Sens C-Reactive Protein 13.28 H Total Protein 7.9 Albumin 4.2 Triglycerides Cholesterol LDL Cholesterol, Calc HDL Cholesterol Procalcitonin Urine Color Urine Appearance Urine pH Ur Specific Savage Urine Protein Urine Glucose (UA) Urine Ketones Urine Blood Urine Nitrite Ur Leukocyte Esterase Urine RBC Urine WBC Ur Squamous Epith Cells Urine Bacteria Epithelial Casts Granular Casts Urine Mucus Coronavirus (PCR) Influenza Type A (PCR) Influenza Type B (PCR) RSV RNA Qual (PCR) 08/05/20 08/05/20 08/05/20 12:15 12:15 12:16 WBC RBC Hgb Hct MCV MCH MCHC RDW Plt Count MPV Immature Gran % (Auto) Neut % (Auto) Lymph % (Auto) [place] % (Auto) Eos % (Auto) Baso % (Auto) Lymph # (Auto) [place] # (Auto) Eos # (Auto) Baso # (Auto) Abs Immat Gran (auto) Absolute Neuts (auto) Absolute Nucleated RBC Nucleated RBC % (auto) PT INR D-Dimer Sodium Potassium Chloride Carbon Dioxide Anion Gap BUN Creatinine Estim Creat Clear Calc Estimated GFR POC Glucose Random Glucose Estimat Average Glucose Hemoglobin A1c % Lactic Acid Calcium Ferritin Total Bilirubin AST ALT Alkaline Phosphatase Lactate Dehydrogenase Total Creatine Kinase 934 H Troponin I High Sens 175.7 H C-Reactive Protein Total Protein Albumin Triglycerides Cholesterol LDL Cholesterol, Calc HDL Cholesterol Procalcitonin Urine Color Urine Appearance Urine pH Ur Specific [place] Urine Protein Urine Glucose (UA) Urine Ketones Urine Blood Urine Nitrite Ur Leukocyte Esterase Urine RBC Urine WBC Ur Squamous Epith Cells Urine Bacteria Epithelial Casts Granular Casts Urine Mucus Coronavirus (PCR) POSITIVE A Influenza Type A (PCR) NEGATIVE Influenza Type B (PCR) NEGATIVE RSV RNA Qual (PCR) NEGATIVE 08/05/20 08/05/20 08/05/20 12:16 12:21 13:05 WBC 8.8 RBC 5.34 Hgb 14.8 Hct 45.4 MCV 85.0 MCH 27.7 MCHC 32.6 RDW 13.7 Plt Count 206 MPV 12.0 Immature Gran % (Auto) 0.2 Neut % (Auto) 64.0 Lymph % (Auto) 25.1 [place] % (Auto) 10.6 Eos % (Auto) 0.0 Baso % (Auto) 0.1 Lymph # (Auto) 2.2 [place] # (Auto) 0.9 Eos # (Auto) 0.0 Baso # (Auto) 0.0 Abs Immat Gran (auto) 0.02 Absolute Neuts (auto) 5.6 Absolute Nucleated RBC 0.000 Nucleated RBC % (auto) 0.0 PT INR D-Dimer Sodium Potassium Chloride Carbon Dioxide Anion Gap BUN Creatinine Estim Creat Clear Calc Estimated GFR POC Glucose Random Glucose Estimat Average Glucose Hemoglobin A1c % Lactic Acid 1.7 Calcium Ferritin Total Bilirubin AST ALT Alkaline Phosphatase Lactate Dehydrogenase Total Creatine Kinase Troponin I High Sens C-Reactive Protein Total Protein Albumin Triglycerides Cholesterol LDL Cholesterol, Calc HDL Cholesterol Procalcitonin 0.21 Urine Color Urine Appearance Urine pH Ur Specific [place] Urine Protein Urine Glucose (UA) Urine Ketones Urine Blood Urine Nitrite Ur Leukocyte Esterase Urine RBC Urine WBC Ur Squamous Epith Cells Urine Bacteria Epithelial Casts Granular Casts Urine Mucus Coronavirus (PCR) Influenza Type A (PCR) Influenza Type B (PCR) RSV RNA Qual (PCR) 08/05/20 08/05/20 08/05/20 14:32 16:28 18:18 WBC RBC Hgb Hct MCV MCH MCHC RDW Plt Count MPV Immature Gran % (Auto) Neut % (Auto) Lymph % (Auto) [place] % (Auto) Eos % (Auto) Baso % (Auto) Lymph # (Auto) [place] # (Auto) Eos # (Auto) Baso # (Auto) Abs Immat Gran (auto) Absolute Neuts (auto) Absolute Nucleated RBC Nucleated RBC % (auto) PT INR D-Dimer Sodium Potassium Chloride Carbon Dioxide Anion Gap BUN Creatinine Estim Creat Clear Calc Estimated GFR POC Glucose 149 H Random Glucose Estimat Average Glucose 183 Hemoglobin A1c % 8.0 Lactic Acid Calcium Ferritin Total Bilirubin AST ALT Alkaline Phosphatase Lactate Dehydrogenase Total Creatine Kinase Troponin I High Sens 190.0 H C-Reactive Protein Total Protein Albumin Triglycerides Cholesterol LDL Cholesterol, Calc HDL Cholesterol Procalcitonin Urine Color Urine Appearance Urine pH Ur Specific [place] Urine Protein Urine Glucose (UA) Urine Ketones Urine Blood Urine Nitrite Ur Leukocyte Esterase Urine RBC Urine WBC Ur Squamous Epith Cells Urine Bacteria Epithelial Casts Granular Casts Urine Mucus Coronavirus (PCR) Influenza Type A (PCR) Influenza Type B (PCR) RSV RNA Qual (PCR) 08/05/20 08/05/20 08/05/20 21:33 23:18 23:18 WBC RBC Hgb Hct MCV MCH MCHC RDW Plt Count MPV Immature Gran % (Auto) Neut % (Auto) Lymph % (Auto) [place] % (Auto) Eos % (Auto) Baso % (Auto) Lymph # (Auto) [place] # (Auto) Eos # (Auto) Baso # (Auto) Abs Immat Gran (auto) Absolute Neuts (auto) Absolute Nucleated RBC Nucleated RBC % (auto) PT INR D-Dimer Sodium Potassium Chloride Carbon Dioxide Anion Gap BUN Creatinine Estim Creat Clear Calc Estimated GFR POC Glucose 222 H Random Glucose Estimat Average Glucose Hemoglobin A1c % Lactic Acid Calcium Ferritin 2352 H Total Bilirubin AST ALT Alkaline Phosphatase Lactate Dehydrogenase 289 H Total Creatine Kinase Troponin I High Sens C-Reactive Protein Total Protein Albumin Triglycerides 96 Cholesterol 186 LDL Cholesterol, Calc 140 HDL Cholesterol 27 Procalcitonin 0.16 Urine Color Urine Appearance Urine pH Ur Specific [place] Urine Protein Urine Glucose (UA) Urine Ketones Urine Blood Urine Nitrite Ur Leukocyte Esterase Urine RBC Urine WBC Ur Squamous Epith Cells Urine Bacteria Epithelial Casts Granular Casts Urine Mucus Coronavirus (PCR) Influenza Type A (PCR) Influenza Type B (PCR) RSV RNA Qual (PCR) 08/05/20 08/06/20 08/06/20 23:18 05:49 05:49 WBC 9.3 RBC 5.07 Hgb 14.0 Hct 43.0 MCV 84.8 MCH 27.6 MCHC 32.6 RDW 13.9 Plt Count 206 MPV 11.9 Immature Gran % (Auto) 0.3 Neut % (Auto) 63.6 Lymph % (Auto) 28.6 [place] % (Auto) 7.4 Eos % (Auto) 0.1 Baso % (Auto) 0.0 Lymph # (Auto) 2.7 [place] # (Auto) 0.7 Eos # (Auto) 0.0 Baso # (Auto) 0.0 Abs Immat Gran (auto) 0.03 Absolute Neuts (auto) 5.9 Absolute Nucleated RBC 0.000 Nucleated RBC % (auto) 0.0 PT 15.6 H INR 1.3 H D-Dimer Sodium Potassium Chloride Carbon Dioxide Anion Gap BUN Creatinine Estim Creat Clear Calc Estimated GFR POC Glucose Random Glucose Estimat Average Glucose Hemoglobin A1c % Lactic Acid Calcium Ferritin Total Bilirubin AST ALT Alkaline Phosphatase Lactate Dehydrogenase Total Creatine Kinase Troponin I High Sens 185.2 H C-Reactive Protein Total Protein Albumin Triglycerides Cholesterol LDL Cholesterol, Calc HDL Cholesterol Procalcitonin Urine Color Urine Appearance Urine pH Ur Specific [place] Urine Protein Urine Glucose (UA) Urine Ketones Urine Blood Urine Nitrite Ur Leukocyte Esterase Urine RBC Urine WBC Ur Squamous Epith Cells Urine Bacteria Epithelial Casts Granular Casts Urine Mucus Coronavirus (PCR) Influenza Type A (PCR) Influenza Type B (PCR) RSV RNA Qual (PCR) 08/06/20 08/06/20 08/06/20 05:49 05:55 05:58 WBC RBC Hgb Hct MCV MCH MCHC RDW Plt Count MPV Immature Gran % (Auto) Neut % (Auto) Lymph % (Auto) [place] % (Auto) Eos % (Auto) Baso % (Auto) Lymph # (Auto) [place] # (Auto) Eos # (Auto) Baso # (Auto) Abs Immat Gran (auto) Absolute Neuts (auto) Absolute Nucleated RBC Nucleated RBC % (auto) PT INR D-Dimer Sodium 142 Potassium 4.0 Chloride 107 Carbon Dioxide 22 Anion Gap 17 BUN 20 H Creatinine 0.81 Estim Creat Clear Calc 91.9 Estimated GFR > 60 POC Glucose Random Glucose 200 H Estimat Average Glucose Hemoglobin A1c % Lactic Acid Calcium 9.0 Ferritin Total Bilirubin AST ALT Alkaline Phosphatase Lactate Dehydrogenase Total Creatine Kinase Troponin I High Sens 137.3 H C-Reactive Protein Total Protein Albumin Triglycerides Cholesterol LDL Cholesterol, Calc HDL Cholesterol Procalcitonin Urine Color ALEXIA Urine Appearance CLEAR Urine pH 6.0 Ur Specific [place] 1.025 Urine Protein 2+ H Urine Glucose (UA) NEG Urine Ketones 15 Urine Blood 2+ H Urine Nitrite NEG Ur Leukocyte Esterase NEG Urine RBC 0 Urine WBC 0-2 Ur Squamous Epith Cells TRACE Urine Bacteria NONE Epithelial Casts 1-4 Granular Casts 0-2 Urine Mucus 1+ Coronavirus (PCR) Influenza Type A (PCR) Influenza Type B (PCR) RSV RNA Qual (PCR) 08/06/20 07:19 WBC RBC Hgb Hct MCV MCH MCHC RDW Plt Count MPV Immature Gran % (Auto) Neut % (Auto) Lymph % (Auto) [place] % (Auto) Eos % (Auto) Baso % (Auto) Lymph # (Auto) [place] # (Auto) Eos # (Auto) Baso # (Auto) Abs Immat Gran (auto) Absolute Neuts (auto) Absolute Nucleated RBC Nucleated RBC % (auto) PT INR D-Dimer Sodium Potassium Chloride Carbon Dioxide Anion Gap BUN Creatinine Estim Creat Clear Calc Estimated GFR POC Glucose 188 H Random Glucose Estimat Average Glucose Hemoglobin A1c % Lactic Acid Calcium Ferritin Total Bilirubin AST ALT Alkaline Phosphatase Lactate Dehydrogenase Total Creatine Kinase Troponin I High Sens C-Reactive Protein Total Protein Albumin Triglycerides Cholesterol LDL Cholesterol, Calc HDL Cholesterol Procalcitonin Urine Color Urine Appearance Urine pH Ur Specific [place] Urine Protein Urine Glucose (UA) Urine Ketones Urine Blood Urine Nitrite Ur Leukocyte Esterase Urine RBC Urine WBC Ur Squamous Epith Cells Urine Bacteria Epithelial Casts Granular Casts Urine Mucus Coronavirus (PCR) Influenza Type A (PCR) Influenza Type B (PCR) RSV RNA Qual (PCR) ECG Interpretation: EKG shows sinus rhythm, 59/min, with Mobitz type 1 second-degree heart block and some nonspecific ST-T changes. Imaging Radiologist's impression: Impressions Chest X-Ray 08/05/20 11:50 IMPRESSION: Enlarged cardiac silhouette. Question left base and right perihilar infiltrate/pneumonia. Chest CTA 08/05/20 13:37 IMPRESSION: No evidence of PE. No evidence of aortic dissection or aneurysm. Diffuse groundglass opacities seen in both lungs suggestive of inflammatory process likely related to Covid disease. Correlate with vertical exam. VTE: Negative Assessment and Plan (1) NSTEMI (non-ST elevated myocardial infarction): Status: Acute (2) COVID-19: Status: Acute Slightly elevated troponins in the setting of COVID infection. Possible underlying CAD. Less likely myocardial information. Does not appear to be acute plaque rupture. We can keep him on Lovenox for 48 hours. Aspirin. Otherwise with regard to the Wenckebach type heart block, no specific management. He can be monitored on telemetry for high-grade heart blocks.
[2020-08-06 11:55] LABS: Glucose, Whole Blood 191 mg/dL (60-115)
[2020-08-06] MEDS: Insulin Lispro 100 UNIT/ML 3 ML VIAL SUBCUT ×2 (13:09→22:55)
[2020-08-06] MEDS: Aspirin Enteric Coated 81 MG TABLET.DR PO (13:09)
[2020-08-06] MEDS: Enoxaparin Sodium 100 MG/ML SYRINGE 90 MG SUBCUT (13:09)
--- NOTE | 2020-08-06 16:24 | HO.PM.IMPN ---
Subjective Subjective Date of Service: 08/07/20 Interval History: COVID infection, elevated troponin Review of Systems Patient generalized weak, denies any chest pain Physical Exam Vital Signs: Vital Signs: Last Vital Signs Temp 98.3 F 08/06/20 09:54 Pulse 62 08/06/20 12:19 Resp 16 08/06/20 12:19 BP 176/90 H 08/06/20 12:19 Pulse Ox 95 08/06/20 12:19 Body Mass Index 28.7 Physical exam: Constitutional: Not in acute distress, seems weak genreally Cvs: [id number], [id number] , no murmur res: Fair air entry, no wheezing or rales abd: no rebound or guarding ,nt, bs present. ext pulses present , no cyanosis neuro: , nonfocal. Objective Data Current Medications Generic Name Dose Route Start Last Admin Trade Name Freq PRN Reason Stop Dose Admin Acetaminophen 650 mg 08/05/20 16:20 Acetaminophen 325 Mg Tablet PO Q6H PRN Pain, Mild (Pain Scale 1-3) Aspirin 81 mg 08/06/20 12:00 08/06/20 13:09 Aspirin Enteric Coated 81 Mg Tablet. PO 81 mg DAILY NICOLETTE Administration Dexamethasone Sodium Phosphate 6 mg 08/06/20 09:00 08/06/20 09:51 Dexamethasone Sod Phosphate 4 Mg/Ml Vial IVPUSH 08/15/20 09:01 6 mg DAILY NICOLETTE Administration Enoxaparin Sodium 90 mg 08/06/20 12:00 08/06/20 13:09 Enoxaparin Sodium 100 Mg/Ml Syringe SUBCUT 90 mg Q12H NICOLETTE Administration Famotidine 20 mg 08/06/20 09:00 08/06/20 09:51 Famotidine/Pf 20 Mg/2 Ml Vial IVPUSH 20 mg DAILY NICOLETTE Administration Ceftriaxone Sodium 1 gm/ 50 mls @ 100 mls/hr 08/05/20 16:30 08/05/20 17:13 Sodium Chloride IV Not Given Q24H NICOLETTE Azithromycin 500 mg/ Sodium 250 mls @ 125 mls/hr 08/05/20 16:30 08/05/20 17:13 Chloride IV Not Given Q24H NICOLETTE Insulin Human Lispro 0 unit 08/05/20 21:00 08/06/20 13:09 Insulin Lispro 100 Unit/Ml 3 Ml Vial SUBCUT 2 unit QIDACHS NICOLETTE Administration Protocol Ondansetron HCl 4 mg 08/05/20 16:20 Ondansetron Hcl 4 Mg/2 Ml Vial IVPUSH Q8H PRN Nausea and Vomiting Pharmacy Consult 1 each 08/05/20 11:51 Consult Rx Perform Med Rec MISCELLANE ONCE PRN Consult order Sodium Chloride 3 ml 08/06/20 00:00 08/06/20 15:48 0.9 % Sodium Chloride Flush 3 Ml Syringe IVFLUSH Not Given QSHIFT [facility] Labs CBC & Chem 7: 08/06/20 05:49 08/06/20 05:49 Microbiology Microbiology Results: Microbiology 08/05/20 13:05 Blood - Venous Blood Culture - Preliminary No growth after 24 hours. 08/05/20 12:57 Blood - Venous Blood Culture - Preliminary No growth after 24 hours. Assessment and Plan (1) NSTEMI (non-ST elevated myocardial infarction): Status: Acute (2) COVID-19: Status: Acute Assessment and Plan: 75 year old man admitted with weakness and covid 19 related pna. 1. covid 19. Rocephin, azithromycin, decadron, ID consult, isolation. Supplemental oxygen as needed. ID eval 2. nstemi:Elevated troponin with Wenckebach on EKG. seem by cardio added asa, lovenox ,defer statin due to Weakness. Will need PT consult. Elevated blood pressure reading. No hx of hypertension. Will follow blood pressure closely Elevated glucose level. AIC 8.0, will start sliding scale, ADA diet DVT prophylaxis with Lovenox.
[2020-08-06] MEDS: cefTRIAXone sodium 1 GM in 0.9 % Sodium Chloride 50 ML IV (16:52)
[2020-08-06 17:06] LABS: Glucose, Whole Blood 217 mg/dL (60-115)
[2020-08-06] MEDS: Azithromycin 500 MG in 0.9 % Sodium Chloride 250 ML 125 MG IV (17:37)
--- NOTE | 2020-08-06 20:26 | PC.NURSE ---
REPORT GIVEN TO CLAYTON[facility] ON [facility]MC. TRANSFERING/ADMITTING TO ROOM 485-1. COVID+, TRANSFERRED VIA ED BED BY JERZY VORA.
[2020-08-06 21:48] LABS: Glucose, Whole Blood 302 mg/dL (60-115)
[2020-08-06] MEDS: Metoprolol Tartrate 25 MG TABLET PO (22:29)
[2020-08-07] VITALS (9 sets, daily range): BP systolic 139–182; BP diastolic 53–82; PULSE 45–77; RESP 18–20; TEMP 36.4–38.7; O2SAT 92–99
--- NOTE | 2020-08-07 | ECG_ITS ---
Test Reason : Bradycardia Blood Pressure : / mmHG Vent. Rate : 036 BPM Atrial Rate : 059 BPM P-R Int : 000 ms QRS Dur : 092 ms QT Int : 486 ms P-R-T Axes : 055 -31 098 degrees QTc Int : 375 ms Sinus bradycardia with 2nd degree A-V block (Mobitz I) with 2:1 A-V conduction Left axis deviation Left ventricular hypertrophy with repolarization abnormality Abnormal ECG No significant changes when compared with the previous EKG of 05 aug 2020 Referred By: Anita Vega Electronically Signed By:ZOIE PATE
[2020-08-07] MEDS: Enoxaparin Sodium 100 MG/ML SYRINGE 90 MG SUBCUT ×3 (00:22→23:17)
[2020-08-07] MEDS: 0.9 % Sodium Chloride Flush 3 ML SYRINGE IVFLUSH ×3 (00:23→14:36)
[2020-08-07 09:04] LABS: Glucose, Whole Blood 107 mg/dL (60-115)
[2020-08-07] MEDS: dexAMETHasone sod phosphate 4 MG/ML VIAL 6 MG IVPUSH (09:14)
[2020-08-07] MEDS: Aspirin Enteric Coated 81 MG TABLET.DR PO (09:14)
[2020-08-07] MEDS: carvediloL 12.5 MG TABLET PO (09:22)
[2020-08-07] MEDS: Remdesivir 200 MG in 0.9 % Sodium Chloride 210 ML 105 MG IV (12:23)
[2020-08-07] MEDS: Acetaminophen 325 MG TABLET 650 MG PO (12:24)
[2020-08-07] MEDS: Insulin Lispro 100 UNIT/ML 3 ML VIAL SUBCUT ×3 (12:38→23:16)
[2020-08-07 12:40] LABS: Glucose, Whole Blood 179 mg/dL (60-115)
--- NOTE | 2020-08-07 12:41 | CONS_ITS ---
DATE OF SERVICE: 08/07/2020 INPATIENT PULMONARY CONSULTATION CHIEF COMPLAINT: Weakness. HISTORY OF PRESENT ILLNESS: Mr. Hagan is a 75-year-old gentleman, who currently was in his usual state of health, who was able to be completely functional until recently when he was found to be very weak, shaky, slow to respond. Therefore, he was brought to the [facility] ED for further evaluation. Upon arrival, he did have a COVID test that was positive and a CT scan demonstrating ground-glass opacities. He was on room air, saturating 94%. He was placed on IV antibiotics and also Decadron. Apparently, he has been more than a week since he has been sickly with symptoms. I will have to confirm that with the family. The patient is very confused. His inflammatory markers have been drastically elevated, very concerning. 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 He has also been on Decadron. The nurse's staff do mention that he is incontinent of urine and stool and he is not following any commands. Apparently on further evaluation of the notes, the son had been concern for his father, the patient about the positive COVID and he was tested and it did come back negative. However, given the continued symptoms, he was brought back to the ER via ambulance and then subsequently became positive. REVIEW OF SYSTEMS: Unable to be obtained as the patient is not following any commands. PAST MEDICAL HISTORY: Has not seen his primary care doctor. The documentations have been unclear, but within 5 to 15 years, he has not seen a physician. ALLERGIES: NO KNOWN DRUG ALLERGIES NOTED. MEDICATIONS: Has not been taking any. SOCIAL HISTORY: Lives with a stepson. He is a nonsmoker. FAMILY HISTORY: Not able to give at this point due to his altered mental status. PHYSICAL EXAMINATION: VITAL SIGNS: Stable. Saturating 92% on room air. GENERAL: He looks fatigued. He looks lethargic, very slow to answer any questions and not being coherent with any of the answers. HEENT: Pupils are equal and reactive to light. Oropharynx clear. NECK: Supple. CARDIAC: Regular rhythm and regular rate. ABDOMEN: Positive bowel sounds, soft. EXTREMITIES: No clubbing or cyanosis. LUNGS: Both diminished. NEURO: He is moving all his extremities, but is very slow. LABORATORY DATA: His CBC is normal. His coagulation is D-dimer is 2463, but now on full dose anticoagulation. His sugars are elevated. Calcium is normal. His troponin I is 137.3. His CPKs are also elevated. Again, his PCR was positive on the 17, not sure why he was tested before. IMAGING STUDIES: CT scan of the chest personally reviewed by me demonstrating patchy ground-glass opacities consistent with the viral pneumonia, negative for PE. ASSESSMENT: Mr. Hagan is a 75-year-old gentleman with a known history of altered mental status, more recently, now found to be COVID positive, significant inflammatory markers. IMPRESSION: 1. COVID-19 infection. The patient has significant inflammation in the body. The multiorgan involvement is not clear when he started having symptoms due to his altered mental status, so therefore I believe remdesivir should be used. Apparently, he was tested negative before suggesting that is more subacute prior to less than a week and would benefit from therapy. 2. Check antibodies to see if any of them . 3. Continue Decadron for full dose anticoagulation, especially with the cardiac involvement. 4. COVID pneumonia. The patient does have significant inflammation in the body. Decadron should help. Remdesivir should also help. 5. Altered mental status, likely some degree of encephalitis poor outcome with COVID-19. Further recommendations based on forthcoming data. I will reach out to Infectious Disease to see if we can provide him with remdesivir therapy. MD JORGE Edwards/EDMOND / [phone]
[2020-08-07 13:17] LABS: SARS COV2 IgG Positive (Negative)
--- NOTE | 2020-08-07 13:21 | MHC.CM.PN ---
Addendum entered by Edna Brand 08/07/20 15:35: NO PCP X 10-15 YRS Addendum entered by Edna Brand 08/07/20 13:32: Info for CM assessment was obtained from Patient, EMR and 2nd contact [place]. Original Note: IMM 08/07/20 Male 75 dx Covid+ [place] is Primary language. He can speak some kiswahili. He lives with his step son. He ambulates independently, no AD. He assist of a person prn. He is independent with ADLs. DP home with family transport. CM will follow.
--- NOTE | 2020-08-07 15:29 | P.PNIM_ITS ---
Subjective Subjective Date of Service: 08/08/20 Interval History: COVID infection, pneumonia Review of Systems Still feels generalized weak , denies any chest pain, has some short of breath Also feels very slow in answering questions Physical Exam Vital Signs: Vital Signs: Last Vital Signs Temp 99.1 F 08/07/20 13:52 Pulse 77 08/07/20 11:37 Resp 20 08/07/20 11:37 BP 140/76 H 08/07/20 11:37 Pulse Ox 93 08/07/20 11:37 Body Mass Index 28.7 Physical exam: Constitutional: Not in acute distress, but feels weak Neck supple Cvs: rrr, [id number] , no murmur res: clear to auscultation ,no rhonchii or wheezing abd: no rebound or guarding ,nt, bs present. ext pulses present , no cyanosis neuro: nonfocal. Objective Data Current Medications Generic Name Dose Route Start Last Admin Trade Name Freq PRN Reason Stop Dose Admin Acetaminophen 650 mg 08/05/20 16:20 08/07/20 12:24 Acetaminophen 325 Mg Tablet PO 650 mg Q6H PRN Administration Pain, Mild (Pain Scale 1-3) Aspirin 81 mg 08/06/20 12:00 08/07/20 09:14 Aspirin Enteric Coated 81 Mg Tablet. PO 81 mg DAILY NICOLETTE Administration Carvedilol 12.5 mg 08/07/20 09:00 08/07/20 09:22 Carvedilol 12.5 Mg Tablet PO 12.5 mg BID NICOLETTE Administration Protocol Dexamethasone Sodium Phosphate 6 mg 08/06/20 09:00 08/07/20 09:14 Dexamethasone Sod Phosphate 4 Mg/Ml Vial IVPUSH 08/15/20 09:01 6 mg DAILY NICOLETTE Administration Enoxaparin Sodium 90 mg 08/06/20 12:00 08/07/20 12:23 Enoxaparin Sodium 100 Mg/Ml Syringe SUBCUT 90 mg Q12H NICOLETTE Administration Ceftriaxone Sodium 1 gm/ 50 mls @ 100 mls/hr 08/05/20 16:30 08/06/20 17:23 Sodium Chloride IV Infused Q24H NICOLETTE Infusion Azithromycin 500 mg/ Sodium 250 mls @ 125 mls/hr 08/05/20 16:30 08/06/20 21:21 Chloride IV Infused Q24H NICOLETTE Infusion Remdesivir 100 mg/ Sodium 230 mls @ 115 mls/hr 08/08/20 11:00 Chloride IV 08/11/20 12:59 Q24H [facility] Insulin Human Lispro 0 unit 08/05/20 21:00 08/07/20 12:38 Insulin Lispro 100 Unit/Ml 3 Ml Vial SUBCUT 2 unit QIDACHS [facility] Administration Protocol Metoprolol Tartrate 25 mg 08/06/20 21:00 08/07/20 09:21 Metoprolol Tartrate 25 Mg Tablet PO Not Given BID [facility] Protocol Ondansetron HCl 4 mg 08/05/20 16:20 Ondansetron Hcl 4 Mg/2 Ml Vial IVPUSH Q8H PRN Nausea and Vomiting Pharmacy Consult 1 each 08/05/20 11:51 Consult Rx Perform Med Rec MISCELLANE ONCE PRN Consult order Sodium Chloride 3 ml 08/06/20 00:00 08/07/20 14:36 0.9 % Sodium Chloride Flush 3 Ml Syringe IVFLUSH 3 ml QSHIFT [facility] Administration Labs CBC & Chem 7: 08/06/20 05:49 08/08/20 06:16 Microbiology Microbiology Results: Microbiology 08/05/20 13:05 Blood - Venous Blood Culture - Preliminary No growth after 48 hours. 08/05/20 12:57 Blood - Venous Blood Culture - Preliminary No growth after 48 hours. Assessment and Plan (1) NSTEMI (non-ST elevated myocardial infarction): Status: Acute (2) COVID-19: Status: Acute Assessment and Plan: 75 year old man admitted with weakness and covid 19 related pna. 1. covid 19 has intermittent fevers -tmax 100.7*f Continue decadron, ID consult, isolation. Supplemental oxygen as needed. COVID antibody added Added remdesivir ID eval and pulm eval pending 2. nstemi:Elevated troponin with Wenckebach on EKG. seem by cardio-continue asa, lovenox ,defer statin due to rhabdo/mild elevated lfts's 3.Elevated blood pressure reading. No hx of hypertension. Will follow blood pressure closely 4. new onset dm: Elevated glucose level. AIC 8.0, will start sliding scale, ADA diet DVT prophylaxis with Lovenox.
[2020-08-07 16:48] LABS: Glucose, Whole Blood 238 mg/dL (60-115)
[2020-08-07] MEDS: cefTRIAXone sodium 1 GM in 0.9 % Sodium Chloride 50 ML IV (16:54)
[2020-08-07 17:35] LABS: Anion Gap 15 (12-20); Blood Urea Nitrogen 26 mg/dL (9-16); Calcium 8.6 mg/dL (8.4-10.2); Carbon Dioxide 26 mmol/L (22-29); Chloride 104 mmol/L (96-108); Creatinine Clr Calc Pharmacy 78.4; Estimated Glomerular Filt Rate > 60; Glucose Random 263 mg/dL (60-115); Potassium 4.1 mmol/l (3.3-5.1); Sodium 141 mmol/L (135-145)
[2020-08-07] MEDS: Azithromycin 500 MG in 0.9 % Sodium Chloride 250 ML 125 MG IV (17:35)
[2020-08-07 17:56] LABS: Alanine Aminotransferase 26 U/L (0-40); Albumin Level 3.5 g/dL (3.5-5.0); Alkaline Phosphatase 50 U/L (39-117); Aspartate Amino Transferase 43 U/L (5-37); Bilirubin Direct 0.3 mg/dL (0.0-0.5); Bilirubin Total 0.5 mg/dL (0.0-1.0); Total Protein 6.6 g/dL (6.5-8.0)
[2020-08-07 21:26] LABS: Glucose, Whole Blood 276 mg/dL (60-115)
--- NOTE | 2020-08-07 21:29 | PM.EVENT ---
Event Note Date of Service: 08/07/20 Event Note: Received a call from nurse the patient is bradycardic dropping to the 30s while sleeping. He comes up to the 60s while awake. Patient is asymptomatic. EKG shows Mobitz type 1. Case was discussed with Cardiology. No commended no intervention. On review of his medications was noted the patient is on carvedilol as well as metoprolol. I will hold metoprolol and carvidalol at this time given his low HR. Cardiology is consulted
[2020-08-08] VITALS (7 sets, daily range): BP systolic 131–146; BP diastolic 57–73; PULSE 54–68; RESP 16–30; TEMP 36.4–37.4; O2SAT 94–98
[2020-08-08] MEDS: Atropine Sulfate 1 MG/10 ML SYRINGE 0.5 MG IVPUSH (00:12)
[2020-08-08] MEDS: 0.9 % Sodium Chloride Flush 3 ML SYRINGE IVFLUSH ×4 (00:21→20:36)
[2020-08-08 07:33] LABS: Alanine Aminotransferase 23 U/L (0-40); Albumin Level 3.3 g/dL (3.5-5.0); Alkaline Phosphatase 47 U/L (39-117); Anion Gap 12 (12-20); Aspartate Amino Transferase 31 U/L (5-37); Bilirubin Direct 0.2 mg/dL (0.0-0.5); Bilirubin Total 0.4 mg/dL (0.0-1.0); Blood Urea Nitrogen 26 mg/dL (9-16); Carbon Dioxide 29 mmol/L (22-29); Chloride 106 mmol/L (96-108); Creatinine Clr Calc Pharmacy 86.6; Estimated Glomerular Filt Rate > 60; Glucose Random 144 mg/dL (60-115); Potassium 4.3 mmol/l (3.3-5.1); Sodium 143 mmol/L (135-145); Total Protein 6.4 g/dL (6.5-8.0)
[2020-08-08 07:55] LABS: Glucose, Whole Blood 146 mg/dL (60-115)
[2020-08-08] MEDS: Aspirin Enteric Coated 81 MG TABLET.DR PO (10:17)
[2020-08-08] MEDS: dexAMETHasone sod phosphate 4 MG/ML VIAL 6 MG IVPUSH (10:17)
[2020-08-08 11:12] LABS: Glucose, Whole Blood 193 mg/dL (60-115)
[2020-08-08] MEDS: Remdesivir 100 MG in 0.9 % Sodium Chloride 230 ML 115 MG IV (11:54)
--- NOTE | 2020-08-08 12:45 | P.PNIM_ITS ---
Subjective Subjective Date of Service: 08/09/20 Interval History: COVID infection, Mobitz type 1 Review of Systems Still feels short of breath, denies any chest pain or abdominal pain or fever or chills At episode of bradycardia overnight ? related to bb which discontinued yesterday. Physical Exam Vital Signs: Vital Signs: Last Vital Signs Temp 98.7 F 08/08/20 11:06 Pulse 67 08/08/20 11:06 Resp 30 H 08/08/20 11:06 BP 134/65 08/08/20 11:06 Pulse Ox 98 08/08/20 11:06 Body Mass Index 28.7 Physical exam: Constitutional: Not in acute distress Cvs: rrr, [id number] , no murmur res: clear to auscultation ,no rhonchii or wheezing abd: no rebound or guarding ,nt, bs present. ext pulses present , no cyanosis neuro: more alert aox2-3 , nonfocal. Objective Data Current Medications Generic Name Dose Route Start Last Admin Trade Name Freq PRN Reason Stop Dose Admin Acetaminophen 650 mg 08/05/20 16:20 08/07/20 12:24 Acetaminophen 325 Mg Tablet PO 650 mg Q6H PRN Administration Pain, Mild (Pain Scale 1-3) Aspirin 81 mg 08/06/20 12:00 08/08/20 10:17 Aspirin Enteric Coated 81 Mg Tablet. PO 81 mg DAILY NICOLETTE Administration Dexamethasone Sodium Phosphate 6 mg 08/06/20 09:00 08/08/20 10:17 Dexamethasone Sod Phosphate 4 Mg/Ml Vial IVPUSH 08/15/20 09:01 6 mg DAILY NICOLETTE Administration Enoxaparin Sodium 40 mg 08/08/20 22:45 Enoxaparin Sodium 40 Mg/0.4 Ml Syringe SUBCUT Q24H NICOLETTE Ceftriaxone Sodium 1 gm/ 50 mls @ 100 mls/hr 08/05/20 16:30 08/07/20 17:42 Sodium Chloride IV Infused Q24H NICOLETTE Infusion Azithromycin 500 mg/ Sodium 250 mls @ 125 mls/hr 08/05/20 16:30 08/07/20 19:30 Chloride IV Infused Q24H NICOLETTE Infusion Remdesivir 100 mg/ Sodium 230 mls @ 115 mls/hr 08/08/20 11:00 08/08/20 11:54 Chloride IV 08/11/20 12:59 115 mls/hr Q24H NICOLETTE Administration Insulin Human Lispro 0 unit 08/05/20 21:00 08/08/20 10:18 Insulin Lispro 100 Unit/Ml 3 Ml Vial SUBCUT Not Given QIDACHS [facility] Protocol Nifedipine 30 mg 08/09/20 09:00 Nifedipine Er 30 Mg Tab.Er.24 PO DAILY [facility] Protocol Ondansetron HCl 4 mg 08/05/20 16:20 Ondansetron Hcl 4 Mg/2 Ml Vial IVPUSH Q8H PRN Nausea and Vomiting Pharmacy Consult 1 each 08/05/20 11:51 Consult Rx Perform Med Rec MISCELLANE ONCE PRN Consult order Sodium Chloride 3 ml 08/06/20 00:00 08/08/20 10:17 0.9 % Sodium Chloride Flush 3 Ml Syringe IVFLUSH 3 ml QSHIFT NICOLETTE Administration Labs CBC & Chem 7: 08/06/20 05:49 08/09/20 09:01 Microbiology Microbiology Results: Microbiology 08/05/20 13:05 Blood - Venous Blood Culture - Preliminary No growth after 48 hours. 08/05/20 12:57 Blood - Venous Blood Culture - Preliminary No growth after 48 hours. Assessment and Plan (1) NSTEMI (non-ST elevated myocardial infarction): Status: Acute (2) COVID-19: Problem details: He has had concerns over COVID infection with hypoxia He meets criteria for Dexamethasone and Remdesivir Status: Acute Assessment and Plan: 75 year old man admitted with weakness and covid 19 related pna. 1. covid 19 has intermittent fevers -tmax 101.7*f last night Continue decadron, remdesvir. Supplemental oxygen as needed. COVID antibody-positive ID eval and pulm eval pending 2. nstemi:Elevated troponin with Wenckebach on EKG. seem by cardio-continue asa, lovenox completed 48hrs ,defer statin due to rhabdo/mild elevated lfts's has jefferson 1 ? bradycardia or bb might have contributed which stopped yesterday moniter closely 3.Elevated blood pressure reading. No hx of hypertension. Will follow blood pressure closely 4. new onset dm: Elevated glucose level. AIC 8.0, will start sliding scale, ADA diet DVT prophylaxis with Lovenox.
[2020-08-08] MEDS: Insulin Lispro 100 UNIT/ML 3 ML VIAL SUBCUT ×3 (12:56→20:36)
--- NOTE | 2020-08-08 15:11 | MHC.CM.PN ---
Pt remains on the [facility] unit for COVID related treatment and is s/p NSTEMI. No PCP on file and documentation that pt has not received medical care >10 yrs. Call placed to pt's spouse at number listed: out of service. Call placed to secondary contact, Hildi: message left. CM will assist pt with obtaining a new PCP once it has confirmed he does not have a current one or has preferences for a specific provider.
[2020-08-08] MEDS: cefTRIAXone sodium 1 GM in 0.9 % Sodium Chloride 50 ML IV (16:06)
[2020-08-08] MEDS: Azithromycin 500 MG in 0.9 % Sodium Chloride 250 ML 125 MG IV (16:08)
[2020-08-08 16:33] LABS: Glucose, Whole Blood 213 mg/dL (60-115)
[2020-08-08 20:03] LABS: Glucose, Whole Blood 299 mg/dL (60-115)
[2020-08-08] MEDS: Enoxaparin Sodium 40 MG/0.4 ML SYRINGE SUBCUT (20:36)
--- NOTE | 2020-08-08 22:12 | P.CNID_ITS ---
History of Present Illness Data of Consult Service Date: 08/08/20 Requesting physician: Nito Solorzano Primary Care Provider: Unknown Physician HPI Reason for consult: shortness of breath,COVID He presents to hospital with shortness of breath for a week His son has COVID He has weakness as well and no neurologic changes Review of Systems 2 Review of Systems: Yes all other systems are reviewed and are negative [facility] Past Medical History Medical History (Updated 08/19/20 @ 00:00 by Alison Ortega) Pneumonia Social History Social History Household Members: Family Housing: Apartment Alcohol intake: unknown Smoking Status: Unknown if ever smoked Substance Use Type: Unknown service: No Current occupational status: disabled Meds Allergies Allergy/AdvReac Type Severity Reaction Status Date / Time No Known Allergies Allergy Verified 08/05/20 11:46 Home Medications Medication Instructions Recorded Confirmed Type No Known Home Meds 08/05/20 08/05/20 History Physical Exam Vital Signs: Vital Signs: Last Vital Signs Temp 97.7 F 08/08/20 20:00 Pulse 68 08/08/20 20:00 Resp 24 H 08/08/20 20:00 BP 131/57 L 08/08/20 20:00 Pulse Ox 98 08/08/20 20:00 Body Mass Index 28.7 Const: General: cooperative HENMT: Head: Yes normal to inspection Mouth: Normal oral and palatal mucosa present Eyes: General: appearance normal, both eyes and all related structures Resp: Effort & Inspection: normal respiratory effort Cardio: Rate: regular rate Rhythm: regular rhythm GI: Inspection: Yes normal to inspection Skin: General skin exam: no rashes or lesions noted Assessment and Plan (1) COVID-19: Problem details: He has had concerns over COVID infection with hypoxia He meets criteria for Dexamethasone and Remdesivir Status: Acute Continue Dexamethasone Start Remdesivir Supportive oxygen Results Labs CBC & Chem 7: 08/06/20 05:49 08/10/20 06:01 Labs: BMP 08/08/20 06:16 Sodium 143 Potassium 4.3 Chloride 106 Carbon Dioxide 29 BUN 26 H Creatinine 0.86 Calcium 9.0 Liver Function 08/08/20 Range/Units 06:16 Total Bilirubin 0.4 (0.0-1.0) mg/dL Direct Bilirubin 0.2 (0.0-0.5) mg/dL AST 31 (5-37) U/L ALT 23 (0-40) U/L Alkaline Phosphatase 47 (39-117) U/L Albumin 3.3 L (3.5-5.0) g/dL Microbiology Microbiology Results: Microbiology 08/05/20 13:05 Blood - Venous Blood Culture - Preliminary No growth after 48 hours. 08/05/20 12:57 Blood - Venous Blood Culture - Preliminary No growth after 48 hours.
--- NOTE | 2020-08-08 22:32 | PC.NURSE ---
At beginning of the shift, the patients heart rate was noted to drop down to 29-30. Per report, patient has been bradycardic with a second degree heart block since admission. Upon assessment, the patient was asymptomatic, with no complaints of chest pain or other cardiac related symptoms. This RN checked a manual pulse which was 36, obtained a blood pressure which was 131/57 and also obtained a rectal temp of 99.1. Patient's heart rate continued to vary in rate from 29-65. Dr. Vega was notified of patients heart rate being as low as 28/29 and per hospitalist, cardiology is aware and no further actions are to be taken. At this time, patient's heart rate is 43, blood pressure is 119/53 and the patient is resting comfortable with no complaints and in NAD.
[2020-08-09] VITALS (7 sets, daily range): BP systolic 110–135; BP diastolic 45–65; PULSE 23–71; RESP 12–22; TEMP 36–36.4; O2SAT 94–99
--- NOTE | 2020-08-09 | ECG_ITS ---
Test Reason : LYNNE Blood Pressure : / mmHG Vent. Rate : 032 BPM Atrial Rate : 032 BPM P-R Int : 180 ms QRS Dur : 090 ms QT Int : 506 ms P-R-T Axes : 000 -25 113 degrees QTc Int : 369 ms Sinus with mobitz 1 second degree HB Left ventricular hypertrophy with repolarization abnormality Abnormal ECG When compared with ECG of 09-AUG-2020 08:17, No significant changes seen Referred By: Nito Solorzano Electronically Signed By:ZOIE PATE
[2020-08-09 08:08] LABS: Glucose, Whole Blood 157 mg/dL (60-115)
[2020-08-09] MEDS: NIFEdipine ER 30 MG TAB.ER.24 PO (08:12)
[2020-08-09] MEDS: Insulin Lispro 100 UNIT/ML 3 ML VIAL SUBCUT ×5 (08:12→20:59)
[2020-08-09] MEDS: 0.9 % Sodium Chloride Flush 3 ML SYRINGE IVFLUSH ×3 (08:12→23:29)
[2020-08-09] MEDS: Aspirin Enteric Coated 81 MG TABLET.DR PO (08:12)
[2020-08-09] MEDS: dexAMETHasone sod phosphate 4 MG/ML VIAL 6 MG IVPUSH (08:12)
[2020-08-09 09:43] LABS: Alanine Aminotransferase 22 U/L (0-40); Albumin Level 3.3 g/dL (3.5-5.0); Alkaline Phosphatase 48 U/L (39-117); Anion Gap 14 (12-20); Aspartate Amino Transferase 21 U/L (5-37); Bilirubin Direct 0.2 mg/dL (0.0-0.5); Bilirubin Total 0.4 mg/dL (0.0-1.0); Blood Urea Nitrogen 26 mg/dL (9-16); Calcium 8.5 mg/dL (8.4-10.2); Carbon Dioxide 26 mmol/L (22-29); Chloride 105 mmol/L (96-108); Creatinine Clr Calc Pharmacy 94.3; Estimated Glomerular Filt Rate > 60; Glucose Random 222 mg/dL (60-115); Potassium 3.9 mmol/l (3.3-5.1); Sodium 141 mmol/L (135-145); Total Protein 6.3 g/dL (6.5-8.0)
--- NOTE | 2020-08-09 10:36 | PC.NURSE ---
Patient has hx of bradycardia with second degree heart block. Patient heart dropped down bradycardic from 25-27 this am with a manual pulse of 31. Patient is sleeping and asymptomatic. Dr. Solorzano made aware/notified and at bedside. EKG performed showing sinus bradycardia HR of 32. Patient heart rate ranging in the 30s-60s. Per Dr. solorzano, cardiology is aware and no further action to be taken at this time.
[2020-08-09] MEDS: Remdesivir 100 MG in 0.9 % Sodium Chloride 230 ML 115 MG IV (11:23)
[2020-08-09 11:31] LABS: Glucose, Whole Blood 224 mg/dL (60-115)
--- NOTE | 2020-08-09 13:23 | HO.PM.IMPN ---
Subjective Subjective Date of Service: 08/09/20 Interval History: COVID infection, Mobitz type 1 Review of Systems Seems more awake and conversive Says shortness of breath is improving Denies any chest pain or abdominal pain says, seems less weak Overnight had a bradycardia but patient was asymptomatic Physical Exam Vital Signs: Vital Signs: Last Vital Signs Temp 97.6 F 08/09/20 12:00 Pulse 71 08/09/20 12:00 Resp 16 08/09/20 12:00 BP 110/50 L 08/09/20 12:00 Pulse Ox 94 08/09/20 12:00 Body Mass Index 28.7 Physical exam: Constitution: Not in acute distress Cvs: rrr, [id number] , no murmur res: clear to auscultation ,no rhonchii or wheezing abd: no rebound or guarding ,nt, bs present. ext pulses present , no cyanosis neuro: more awake and alert , nonfocal. Objective Data Current Medications Generic Name Dose Route Start Last Admin Trade Name Freq PRN Reason Stop Dose Admin Acetaminophen 650 mg 08/05/20 16:20 08/07/20 12:24 Acetaminophen 325 Mg Tablet PO 650 mg Q6H PRN Administration Pain, Mild (Pain Scale 1-3) Aspirin 81 mg 08/06/20 12:00 08/09/20 08:12 Aspirin Enteric Coated 81 Mg Tablet. PO 81 mg DAILY NICOLETTE Administration Dexamethasone Sodium Phosphate 6 mg 08/06/20 09:00 08/09/20 08:12 Dexamethasone Sod Phosphate 4 Mg/Ml Vial IVPUSH 08/15/20 09:01 6 mg DAILY NICOLETTE Administration Enoxaparin Sodium 40 mg 08/08/20 23:00 08/08/20 20:36 Enoxaparin Sodium 40 Mg/0.4 Ml Syringe SUBCUT 40 mg Q24H NICOLETTE Administration Ceftriaxone Sodium 1 gm/ 50 mls @ 100 mls/hr 08/05/20 16:30 08/08/20 16:53 Sodium Chloride IV Infused Q24H NICOLETTE Infusion Azithromycin 500 mg/ Sodium 250 mls @ 125 mls/hr 08/05/20 16:30 08/08/20 18:52 Chloride IV Infused Q24H NICOLETTE Infusion Remdesivir 100 mg/ Sodium 230 mls @ 115 mls/hr 08/08/20 11:00 08/09/20 11:23 Chloride IV 08/11/20 12:59 115 mls/hr Q24H NICOLETTE Administration Insulin Human Lispro 0 unit 08/05/20 21:00 08/09/20 11:39 Insulin Lispro 100 Unit/Ml 3 Ml Vial SUBCUT 4 unit QIDACHS NICOLETTE Administration Protocol Nifedipine 30 mg 08/09/20 09:00 08/09/20 08:12 Nifedipine Er 30 Mg Tab.Er.24 PO 30 mg DAILY NICOLETTE Administration Protocol Ondansetron HCl 4 mg 08/05/20 16:20 Ondansetron Hcl 4 Mg/2 Ml Vial IVPUSH Q8H PRN Nausea and Vomiting Pharmacy Consult 1 each 08/05/20 11:51 Consult Rx Perform Med Rec MISCELLANE ONCE PRN Consult order Sodium Chloride 3 ml 08/06/20 00:00 08/09/20 08:12 0.9 % Sodium Chloride Flush 3 Ml Syringe IVFLUSH 3 ml QSHIFT NICOLETTE Administration Labs CBC & Chem 7: 08/06/20 05:49 08/09/20 09:01 Microbiology Microbiology Results: Microbiology 08/05/20 13:05 Blood - Venous Blood Culture - Preliminary No growth after 48 hours. 08/05/20 12:57 Blood - Venous Blood Culture - Preliminary No growth after 48 hours. Assessment and Plan (1) NSTEMI (non-ST elevated myocardial infarction): Status: Acute (2) COVID-19: Problem details: He has had concerns over COVID infection with hypoxia He meets criteria for Dexamethasone and Remdesivir Status: Acute Assessment and Plan: 75 year old man admitted with weakness and covid 19 related pna. 1. covid 19 fever resolved , last fevers -tmax 101.7*f on 08/07. Continue decadron, remdesvir 2/4., taper Supplemental oxygen as needed. COVID antibody-positive ID eval and pulm following 2. nstemi:Elevated troponin with Wenckebach on EKG. seem by cardio-continue asa, lovenox completed 48hrs defer statin due to rhabdo/mild elevated lfts's-whsich is improving, will check cpk and lipid panel as well as lft's in am again . has mobitz 1 ? bradycardia or bb might have contributed which stopped. cardio saw the patient -continue above management , also patient has bradycardia more significant during the nighttime but patient is asymptomatic- continue to monitor as per cardio. 3.Elevated blood pressure reading. No hx of hypertension but patient did not go to any physician. continue nifedipine, blood pressure seems fine. 4. new onset dm:fs 130-220 Elevated glucose level. AIC 8.0, will start sliding scale, ADA diet. DVT prophylaxis with Lovenox.
[2020-08-09] MEDS: cefTRIAXone sodium 1 GM in 0.9 % Sodium Chloride 50 ML IV (15:36)
--- NOTE | 2020-08-09 15:52 | MHC.CM.PN ---
Pt remains on the [facility] unit receiving treatment for COVID. He is on 2 liters of O2 - The plan is to complete treatment and wean off of O2. Pt will then d/c to home with family support and ? VNA. Referral to be made once O2 needs at d/c are better known
[2020-08-09 16:18] LABS: Glucose, Whole Blood 361 mg/dL (60-115)
[2020-08-09] MEDS: Azithromycin 500 MG in 0.9 % Sodium Chloride 250 ML 125 MG IV (16:29)
[2020-08-09] MEDS: Omeprazole 20 MG CAPSULE.DR PO (17:58)
[2020-08-09 20:35] LABS: Glucose, Whole Blood 324 mg/dL (60-115)
[2020-08-09] MEDS: Enoxaparin Sodium 40 MG/0.4 ML SYRINGE SUBCUT (23:28)
[2020-08-10] VITALS (7 sets, daily range): BP systolic 113–139; BP diastolic 39–77; PULSE 40–67; RESP 14–24; TEMP 35.9–36.7; O2SAT 91–96
[2020-08-10] MEDS: Omeprazole 20 MG CAPSULE.DR PO (06:10)
[2020-08-10 07:17] LABS: Alanine Aminotransferase 29 U/L (0-40); Alkaline Phosphatase 43 U/L (39-117); Aspartate Amino Transferase 31 U/L (5-37); Bilirubin Direct 0.2 mg/dL (0.0-0.5); Bilirubin Total 0.4 mg/dL (0.0-1.0); Total Protein 5.9 g/dL (6.5-8.0)
[2020-08-10 07:25] LABS: Anion Gap 13 (12-20); Blood Urea Nitrogen 22 mg/dL (9-16); Calcium 8.4 mg/dL (8.4-10.2); Carbon Dioxide 25 mmol/L (22-29); Chloride 107 mmol/L (96-108); Creatinine Clr Calc Pharmacy 94.3; Estimated Glomerular Filt Rate > 60; Glucose Random 106 mg/dL (60-115); Potassium 4.2 mmol/l (3.3-5.1); Sodium 141 mmol/L (135-145)
[2020-08-10 07:44] LABS: Glucose, Whole Blood 130 mg/dL (60-115)
[2020-08-10] MEDS: 0.9 % Sodium Chloride Flush 3 ML SYRINGE IVFLUSH ×3 (07:58→21:47)
[2020-08-10] MEDS: NIFEdipine ER 30 MG TAB.ER.24 PO (07:58)
[2020-08-10] MEDS: Aspirin Enteric Coated 81 MG TABLET.DR PO (07:58)
[2020-08-10] MEDS: dexAMETHasone sod phosphate 4 MG/ML VIAL 6 MG IVPUSH (07:58)
[2020-08-10] MEDS: Remdesivir 100 MG in 0.9 % Sodium Chloride 230 ML 115 MG IV (11:13)
[2020-08-10 11:24] LABS: Glucose, Whole Blood 232 mg/dL (60-115)
[2020-08-10] MEDS: Insulin Lispro 100 UNIT/ML 3 ML VIAL SUBCUT ×3 (11:57→21:47)
--- NOTE | 2020-08-10 12:46 | P.PNIM_ITS ---
Subjective Subjective Date of Service: 08/10/20 Interval History: Seen in f/u for covid. No resp distress. Off O2 Review of Systems no sob, no fever Review of Systems: Yes all other systems are reviewed and are negative Physical Exam Vital Signs: Vital Signs: Last Vital Signs Temp 96.7 F L 08/10/20 11:39 Pulse 66 08/10/20 11:39 Resp 14 08/10/20 11:39 BP 119/77 08/10/20 11:39 Pulse Ox 92 08/10/20 11:39 Body Mass Index 28.7 Const: General: cooperative and comfortable Orientation/consciousness: patient oriented x3 Resp: Effort & Inspection: normal respiratory effort and able to speak in com plete sentences Auscultation: clear to auscultation bilaterally Cardio: Rhythm: regular rhythm Heart sounds: S1 normal heart sound present and S2 normal heart sound present Skin: General skin exam: no rashes or lesions noted Neuro: General: patient oriented x3 Psych: Insight: Good insight present (Psych) Judgement: Good judgement present (Psych) Objective Data Current Medications Generic Name Dose Route Start Last Admin Trade Name Freq PRN Reason Stop Dose Admin Acetaminophen 650 mg 08/05/20 16:20 08/07/20 12:24 Acetaminophen 325 Mg Tablet PO 650 mg Q6H PRN Administration Pain, Mild (Pain Scale 1-3) Aspirin 81 mg 08/06/20 12:00 08/10/20 07:58 Aspirin Enteric Coated 81 Mg Tablet. PO 81 mg DAILY NICOLETTE Administration Dexamethasone Sodium Phosphate 6 mg 08/06/20 09:00 08/10/20 07:58 Dexamethasone Sod Phosphate 4 Mg/Ml Vial IVPUSH 08/15/20 09:01 6 mg DAILY NICOLETTE Administration Enoxaparin Sodium 40 mg 08/08/20 23:00 08/09/20 23:28 Enoxaparin Sodium 40 Mg/0.4 Ml Syringe SUBCUT 40 mg Q24H NICOLETTE Administration Ceftriaxone Sodium 1 gm/ 50 mls @ 100 mls/hr 08/05/20 16:30 08/09/20 16:09 Sodium Chloride IV Infused Q24H NICOLETTE Infusion Azithromycin 500 mg/ Sodium 250 mls @ 125 mls/hr 08/05/20 16:30 08/09/20 18:30 Chloride IV Infused Q24H NICOLETTE Infusion Remdesivir 100 mg/ Sodium 230 mls @ 115 mls/hr 08/08/20 11:00 08/10/20 11:13 Chloride IV 08/11/20 12:59 115 mls/hr Q24H NICOLETTE Administration Insulin Human Lispro 0 unit 08/05/20 21:00 08/10/20 11:57 Insulin Lispro 100 Unit/Ml 3 Ml Vial SUBCUT 4 unit QIDACHS NICOLETTE Administration Protocol Nifedipine 30 mg 08/09/20 09:00 08/10/20 07:58 Nifedipine Er 30 Mg Tab.Er.24 PO 30 mg DAILY NICOLETTE Administration Protocol Omeprazole 20 mg 08/09/20 17:45 08/10/20 06:10 Omeprazole 20 Mg Capsule. PO 20 mg DAILY@0630 [facility] Administration Ondansetron HCl 4 mg 08/05/20 16:20 Ondansetron Hcl 4 Mg/2 Ml Vial IVPUSH Q8H PRN Nausea and Vomiting Pharmacy Consult 1 each 08/05/20 11:51 Consult Rx Perform Med Rec MISCELLANE ONCE PRN Consult order Sodium Chloride 3 ml 08/06/20 00:00 08/10/20 07:58 0.9 % Sodium Chloride Flush 3 Ml Syringe IVFLUSH 3 ml QSHIFT [facility] Administration Labs CBC & Chem 7: 08/06/20 05:49 08/10/20 06:01 Microbiology Microbiology Results: Microbiology 08/05/20 13:05 Blood - Venous Blood Culture - Preliminary No growth after 48 hours. 08/05/20 12:57 Blood - Venous Blood Culture - Preliminary No growth after 48 hours. Assessment and Plan (1) NSTEMI (non-ST elevated myocardial infarction): Status: Acute (2) COVID-19: Problem details: He has had concerns over COVID infection with hypoxia He meets criteria for Dexamethasone and Remdesivir Status: Acute Assessment and Plan: 75 year old man admitted with weakness and covid 19 related pna. 1.Covid 19, with PNA -no fever, off O2 -Decadron for 7 to 10, -Finish course of Remdesevir 2.NSTEMI: Elevated troponin with Wenckebach on EKG. -Treated with Lovenox for 48 hrs -No statin d/t rhabdo -No BB d/t bradycard -Cardiology recommend no further intervention. 3. bradycardia more pronounced at night --no Sinus pause and assymptomaic. Cardiology aware. No pace maker at this time. 4. HTN--BP normal. On Nifedipine, d/c due to bradycardia. 3 4. new onset dm:fs 130-220 Elevated glucose level. AIC 8.0, will start sliding scale, ADA diet. PT eval for weakness.' DVT prophylaxis with Lovenox.
--- NOTE | 2020-08-10 15:11 | MHC.CM.PN ---
Met with pt to review d/c plan: Pt states he wishes to return to home with step son: Discussed PCP: pt said he used to go to the [facility] and would like to return Call placed to [facility]: pt is active with Margie De La Torre. He will see Dr. Sepulveda on 08/15 at 2pm for a post d/c visit. Call placed to pt's son to inform him of appt and noted it will be including on the d/c instructions at d/c. Pt's dtr typically provides transportation to MD visits.
[2020-08-10] MEDS: cefTRIAXone sodium 1 GM in 0.9 % Sodium Chloride 50 ML IV (15:31)
[2020-08-10] MEDS: Acetaminophen 325 MG TABLET 650 MG PO (15:31)
[2020-08-10] MEDS: Azithromycin 500 MG in 0.9 % Sodium Chloride 250 ML 125 MG IV (16:21)
[2020-08-10 16:27] LABS: Glucose, Whole Blood 352 mg/dL (60-115)
--- NOTE | 2020-08-10 19:24 | PC.NURSE ---
At 1630 Dr. Mcconnell notified of critical glucose of 352. Orders received from Dr. mcconnell to follow insulin sliding scale and give patient 10 units. Patient given 10 units of insulin with dinner tray. No further concerns at this time.
--- NOTE | 2020-08-10 20:29 | PM.IDPN ---
Subjective Subjective Date of Service: 08/26/20 Interval History: he feels weak but is using phone He is on 2 liters oxygen Objective Data Labs CBC & Chem 7: 08/06/20 05:49 08/10/20 06:01 Labs: Laboratory Results - last 24 hr 08/09/20 08/10/20 08/10/20 20:27 06:01 06:01 Sodium 141 Potassium 4.2 Chloride 107 Carbon Dioxide 25 Anion Gap 13 BUN 22 H Creatinine 0.79 Estim Creat Clear Calc 94.3 Estimated GFR > 60 POC Glucose 324 H Random Glucose 106 D Calcium 8.4 Total Bilirubin 0.4 Direct Bilirubin 0.2 AST 31 D ALT 29 Alkaline Phosphatase 43 Total Protein 5.9 L Albumin 3.0 L 08/10/20 08/10/20 08/10/20 07:25 11:18 16:22 Sodium Potassium Chloride Carbon Dioxide Anion Gap BUN Creatinine Estim Creat Clear Calc Estimated GFR POC Glucose 130 H 232 H 352 H* Random Glucose Calcium Total Bilirubin Direct Bilirubin AST ALT Alkaline Phosphatase Total Protein Albumin Microbiology Microbiology Results: Microbiology 08/05/20 13:05 Blood - Venous Blood Culture - Final No growth after 5 days. 08/05/20 12:57 Blood - Venous Blood Culture - Final No growth after 5 days. Physical Exam Vital Signs: Vital Signs: Last Vital Signs Temp 97.9 F 08/10/20 20:00 Pulse 40 L 08/10/20 20:00 Resp 16 08/10/20 20:00 BP 139/58 L 08/10/20 20:00 Pulse Ox 94 08/10/20 20:00 Body Mass Index 28.7 Const: General: cooperative HENMT: Head: Yes normal to inspection Mouth: Normal oral and palatal mucosa present Resp: Effort & Inspection: normal respiratory effort Cardio: Rate: regular rate Rhythm: regular rhythm GI: Palpation (GI): Soft to palpation and nontender Skin: General skin exam: no rashes or lesions noted Extrem: General: Yes normal to inspection Assessment and Plan Assessment and plan (1) Pneumonia: Problem details: left base probable bacterial pneumonia with increased procalcitonin Status: Acute Assessment and Plan: Continue Ceftriaxone and Zmax 5 days likely Continue oxygen supplementation Time Spent With Patient Time: Total time spent is greater than 50% in coordination of care (as documented) at patient's floor/unit and/or counseling patient: Time with patient: 15 - 24 minutes
[2020-08-10 21:04] LABS: Glucose, Whole Blood 228 mg/dL (60-115)
[2020-08-10] MEDS: Enoxaparin Sodium 40 MG/0.4 ML SYRINGE SUBCUT (21:47)
[2020-08-11] VITALS: BP 145/56; PULSE 38; RESP 18; TEMP 36.2; O2SAT 97
[2020-08-11 03:23] VITALS: BP 146/62; PULSE 40; RESP 16; TEMP 36.5; O2SAT 96
[2020-08-11 07:55] LABS: Glucose, Whole Blood 93 mg/dL (60-115)
[2020-08-11 08:00] VITALS: BP 144/73; PULSE 55; RESP 16; TEMP 36.8; O2SAT 94
[2020-08-11] MEDS: dexAMETHasone sod phosphate 4 MG/ML VIAL 6 MG IVPUSH (08:16)
[2020-08-11] MEDS: 0.9 % Sodium Chloride Flush 3 ML SYRINGE IVFLUSH (08:17)
[2020-08-11] MEDS: NIFEdipine ER 30 MG TAB.ER.24 PO (08:17)
[2020-08-11] MEDS: Omeprazole 20 MG CAPSULE.DR PO (08:17)
[2020-08-11] MEDS: Aspirin Enteric Coated 81 MG TABLET.DR PO (08:17)
--- NOTE | 2020-08-11 10:17 | P.DS_ITS ---
DS: Providers Provider Date of Service: 08/20/20 Date of admission: 08/05/20 16:20 Primary care physician: Unknown Physician Consults: 08/05/20 16:20 Consult to Infectious Diseases Routine Consulting Provider: Ana Romero Reason for consultation: COVID 19 Has provider been notified: No 08/05/20 16:55 Consult to Cardiology Routine Consulting Provider: Ronak Welch Reason for consultation: elevated troponin, covid 19, Has provider been notified: No DS: Diagnosis Discharge Diagnosis (1) Pneumonia: Status: Acute Problem details: left base probable bacterial pneumonia with increased procalcitonin DS: Medications Discharge Medications Home Medications: Home Medications Medication Instructions Recorded Confirmed No Known Home Meds 08/05/20 08/05/20 DS: Summary Hospital Course Hospital Course: 75 year old man presenting with weakness. According to his step son, with whom he lives, (Angel Bernal [phone]) he has been very weak, shaking and slow to respond. He also mentioned that the patient had told him he was having diarrhea but he did not say that during the interview. Apparently the patient is usually more lively and communicative. His Covid PCR was positive, CT showed diffuse groundglass opacities. He had no fever or WBC. He was not requiring oxygen. He was given Rocephin, Azithromycin, decadron. He will be admitted for further management of Covid 19. Hospital course: This patient was admitted with covid 19 associated with hypoxia and Pneumonia and required oxgyen and Remdesevir for 5 days. He has done well and is recovering very well. Patient did have mild bump in troponin and given 24 hours of Lovnenox and thought to be related to underlying infection. He had bradycardia mostly when sleeping with no sinus pause and consistent with [place] and was monitored on telemetry without any evidence of high-degree block. He was seen by cardioloy with no additional intervention required. He has completed 5 days of ceftriaxone and doxycycline for presumed pneumonia. He will be discharged to complete 10 days of Dexamethasone. He has new onset of diabetes with Hemoglobin A1C of 8 received insulin in hospital. He has hyperlipidemia and will be started on Lipitor and baby ASA for possible CAD Time Spent with Patient Time attestation: Total time spent providing and/or coordinating discharge services: Discharge coordination time: Greater than 30 minutes Physical Exam Vital Signs: Vital Signs: Last Vital Signs Temp 98.2 F 08/11/20 08:00 Pulse 55 08/11/20 08:00 Resp 16 08/11/20 08:00 BP 144/73 H 08/11/20 08:00 Pulse Ox 94 08/11/20 08:00 Body Mass Index 28.7 DS: Data Data Completed and Pending Labs on day of discharge: Laboratory Tests 08/05/20 08/05/20 08/05/20 12:14 12:15 12:15 WBC RBC Hgb Hct MCV MCH MCHC RDW Plt Count MPV Immature Gran % (Auto) Neut % (Auto) Lymph % (Auto) [place] % (Auto) Eos % (Auto) Baso % (Auto) Lymph # (Auto) [place] # (Auto) Eos # (Auto) Baso # (Auto) Abs Immat Gran (auto) Absolute Neuts (auto) Absolute Nucleated RBC Nucleated RBC % (auto) PT 15.6 H INR 1.3 H D-Dimer 2463 Sodium 143 Potassium 3.8 Chloride 104 Carbon Dioxide 24 Anion Gap 19 BUN 21 H Creatinine 1.13 Estim Creat Clear Calc 65.9 Estimated GFR > 60 POC Glucose 210 H Random Glucose 234 H Estimat Average Glucose Hemoglobin A1c % Lactic Acid Calcium 9.4 Ferritin 2075 H Total Bilirubin 0.5 Direct Bilirubin AST 54 H ALT 32 Alkaline Phosphatase 53 Lactate Dehydrogenase 340 H Total Creatine Kinase Troponin I High Sens C-Reactive Protein 13.28 H Total Protein 7.9 Albumin 4.2 Triglycerides Cholesterol LDL Cholesterol, Calc HDL Cholesterol Procalcitonin Urine Color Urine Appearance Urine pH Ur Specific [place] Urine Protein Urine Glucose (UA) Urine Ketones Urine Blood Urine Nitrite Ur Leukocyte Esterase Urine RBC Urine WBC Ur Squamous Epith Cells Urine Bacteria Epithelial Casts Granular Casts Urine Mucus Coronavirus (PCR) Influenza Type A (PCR) Influenza Type B (PCR) RSV RNA Qual (PCR) SARS-CoV-2 IgG Ab 08/05/20 08/05/20 08/05/20 12:15 12:15 12:16 WBC RBC Hgb Hct MCV MCH MCHC RDW Plt Count MPV Immature Gran % (Auto) Neut % (Auto) Lymph % (Auto) [place] % (Auto) Eos % (Auto) Baso % (Auto) Lymph # (Auto) [place] # (Auto) Eos # (Auto) Baso # (Auto) Abs Immat Gran (auto) Absolute Neuts (auto) Absolute Nucleated RBC Nucleated RBC % (auto) PT INR D-Dimer Sodium Potassium Chloride Carbon Dioxide Anion Gap BUN Creatinine Estim Creat Clear Calc Estimated GFR POC Glucose Random Glucose Estimat Average Glucose Hemoglobin A1c % Lactic Acid Calcium Ferritin Total Bilirubin Direct Bilirubin AST ALT Alkaline Phosphatase Lactate Dehydrogenase Total Creatine Kinase 934 H Troponin I High Sens 175.7 H C-Reactive Protein Total Protein Albumin Triglycerides Cholesterol LDL Cholesterol, Calc HDL Cholesterol Procalcitonin Urine Color Urine Appearance Urine pH Ur Specific [place] Urine Protein Urine Glucose (UA) Urine Ketones Urine Blood Urine Nitrite Ur Leukocyte Esterase Urine RBC Urine WBC Ur Squamous Epith Cells Urine Bacteria Epithelial Casts Granular Casts Urine Mucus Coronavirus (PCR) POSITIVE A Influenza Type A (PCR) NEGATIVE Influenza Type B (PCR) NEGATIVE RSV RNA Qual (PCR) NEGATIVE SARS-CoV-2 IgG Ab 08/05/20 08/05/20 08/05/20 12:16 12:21 13:05 WBC 8.8 RBC 5.34 Hgb 14.8 Hct 45.4 MCV 85.0 MCH 27.7 MCHC 32.6 RDW 13.7 Plt Count 206 MPV 12.0 Immature Gran % (Auto) 0.2 Neut % (Auto) 64.0 Lymph % (Auto) 25.1 [place] % (Auto) 10.6 Eos % (Auto) 0.0 Baso % (Auto) 0.1 Lymph # (Auto) 2.2 [place] # (Auto) 0.9 Eos # (Auto) 0.0 Baso # (Auto) 0.0 Abs Immat Gran (auto) 0.02 Absolute Neuts (auto) 5.6 Absolute Nucleated RBC 0.000 Nucleated RBC % (auto) 0.0 PT INR D-Dimer Sodium Potassium Chloride Carbon Dioxide Anion Gap BUN Creatinine Estim Creat Clear Calc Estimated GFR POC Glucose Random Glucose Estimat Average Glucose Hemoglobin A1c % Lactic Acid 1.7 Calcium Ferritin Total Bilirubin Direct Bilirubin AST ALT Alkaline Phosphatase Lactate Dehydrogenase Total Creatine Kinase Troponin I High Sens C-Reactive Protein Total Protein Albumin Triglycerides Cholesterol LDL Cholesterol, Calc HDL Cholesterol Procalcitonin 0.21 Urine Color Urine Appearance Urine pH Ur Specific [place] Urine Protein Urine Glucose (UA) Urine Ketones Urine Blood Urine Nitrite Ur Leukocyte Esterase Urine RBC Urine WBC Ur Squamous Epith Cells Urine Bacteria Epithelial Casts Granular Casts Urine Mucus Coronavirus (PCR) Influenza Type A (PCR) Influenza Type B (PCR) RSV RNA Qual (PCR) SARS-CoV-2 IgG Ab 08/05/20 08/05/20 08/05/20 14:32 16:28 18:18 WBC RBC Hgb Hct MCV MCH MCHC RDW Plt Count MPV Immature Gran % (Auto) Neut % (Auto) Lymph % (Auto) [place] % (Auto) Eos % (Auto) Baso % (Auto) Lymph # (Auto) [place] # (Auto) Eos # (Auto) Baso # (Auto) Abs Immat Gran (auto) Absolute Neuts (auto) Absolute Nucleated RBC Nucleated RBC % (auto) PT INR D-Dimer Sodium Potassium Chloride Carbon Dioxide Anion Gap BUN Creatinine Estim Creat Clear Calc Estimated GFR POC Glucose 149 H Random Glucose Estimat Average Glucose 183 Hemoglobin A1c % 8.0 Lactic Acid Calcium Ferritin Total Bilirubin Direct Bilirubin AST ALT Alkaline Phosphatase Lactate Dehydrogenase Total Creatine Kinase Troponin I High Sens 190.0 H C-Reactive Protein Total Protein Albumin Triglycerides Cholesterol LDL Cholesterol, Calc HDL Cholesterol Procalcitonin Urine Color Urine Appearance Urine pH Ur Specific [place] Urine Protein Urine Glucose (UA) Urine Ketones Urine Blood Urine Nitrite Ur Leukocyte Esterase Urine RBC Urine WBC Ur Squamous Epith Cells Urine Bacteria Epithelial Casts Granular Casts Urine Mucus Coronavirus (PCR) Influenza Type A (PCR) Influenza Type B (PCR) RSV RNA Qual (PCR) SARS-CoV-2 IgG Ab 08/05/20 08/05/20 08/05/20 21:33 23:18 23:18 WBC RBC Hgb Hct MCV MCH MCHC RDW Plt Count MPV Immature Gran % (Auto) Neut % (Auto) Lymph % (Auto) [place] % (Auto) Eos % (Auto) Baso % (Auto) Lymph # (Auto) [place] # (Auto) Eos # (Auto) Baso # (Auto) Abs Immat Gran (auto) Absolute Neuts (auto) Absolute Nucleated RBC Nucleated RBC % (auto) PT INR D-Dimer Sodium Potassium Chloride Carbon Dioxide Anion Gap BUN Creatinine Estim Creat Clear Calc Estimated GFR POC Glucose 222 H Random Glucose Estimat Average Glucose Hemoglobin A1c % Lactic Acid Calcium Ferritin 2352 H Total Bilirubin Direct Bilirubin AST ALT Alkaline Phosphatase Lactate Dehydrogenase 289 H Total Creatine Kinase Troponin I High Sens C-Reactive Protein Total Protein Albumin Triglycerides 96 Cholesterol 186 LDL Cholesterol, Calc 140 HDL Cholesterol 27 Procalcitonin 0.16 Urine Color Urine Appearance Urine pH Ur Specific [place] Urine Protein Urine Glucose (UA) Urine Ketones Urine Blood Urine Nitrite Ur Leukocyte Esterase Urine RBC Urine WBC Ur Squamous Epith Cells Urine Bacteria Epithelial Casts Granular Casts Urine Mucus Coronavirus (PCR) Influenza Type A (PCR) Influenza Type B (PCR) RSV RNA Qual (PCR) SARS-CoV-2 IgG Ab 08/05/20 08/06/20 08/06/20 23:18 05:49 05:49 WBC 9.3 RBC 5.07 Hgb 14.0 Hct 43.0 MCV 84.8 MCH 27.6 MCHC 32.6 RDW 13.9 Plt Count 206 MPV 11.9 Immature Gran % (Auto) 0.3 Neut % (Auto) 63.6 Lymph % (Auto) 28.6 [place] % (Auto) 7.4 Eos % (Auto) 0.1 Baso % (Auto) 0.0 Lymph # (Auto) 2.7 [place] # (Auto) 0.7 Eos # (Auto) 0.0 Baso # (Auto) 0.0 Abs Immat Gran (auto) 0.03 Absolute Neuts (auto) 5.9 Absolute Nucleated RBC 0.000 Nucleated RBC % (auto) 0.0 PT 15.6 H INR 1.3 H D-Dimer Sodium Potassium Chloride Carbon Dioxide Anion Gap BUN Creatinine Estim Creat Clear Calc Estimated GFR POC Glucose Random Glucose Estimat Average Glucose Hemoglobin A1c % Lactic Acid Calcium Ferritin Total Bilirubin Direct Bilirubin AST ALT Alkaline Phosphatase Lactate Dehydrogenase Total Creatine Kinase Troponin I High Sens 185.2 H C-Reactive Protein Total Protein Albumin Triglycerides Cholesterol LDL Cholesterol, Calc HDL Cholesterol Procalcitonin Urine Color Urine Appearance Urine pH Ur Specific [place] Urine Protein Urine Glucose (UA) Urine Ketones Urine Blood Urine Nitrite Ur Leukocyte Esterase Urine RBC Urine WBC Ur Squamous Epith Cells Urine Bacteria Epithelial Casts Granular Casts Urine Mucus Coronavirus (PCR) Influenza Type A (PCR) Influenza Type B (PCR) RSV RNA Qual (PCR) SARS-CoV-2 IgG Ab 08/06/20 08/06/20 08/06/20 05:49 05:55 05:58 WBC RBC Hgb Hct MCV MCH MCHC RDW Plt Count MPV Immature Gran % (Auto) Neut % (Auto) Lymph % (Auto) [place] % (Auto) Eos % (Auto) Baso % (Auto) Lymph # (Auto) [place] # (Auto) Eos # (Auto) Baso # (Auto) Abs Immat Gran (auto) Absolute Neuts (auto) Absolute Nucleated RBC Nucleated RBC % (auto) PT INR D-Dimer Sodium 142 Potassium 4.0 Chloride 107 Carbon Dioxide 22 Anion Gap 17 BUN 20 H Creatinine 0.81 Estim Creat Clear Calc 91.9 Estimated GFR > 60 POC Glucose Random Glucose 200 H Estimat Average Glucose Hemoglobin A1c % Lactic Acid Calcium 9.0 Ferritin Total Bilirubin Direct Bilirubin AST ALT Alkaline Phosphatase Lactate Dehydrogenase Total Creatine Kinase 623 H Troponin I High Sens 137.3 H C-Reactive Protein Total Protein Albumin Triglycerides Cholesterol LDL Cholesterol, Calc HDL Cholesterol Procalcitonin Urine Color [place]LEX[place] Urine Appearance CLEAR Urine pH 6.0 Ur Specific [place] 1.025 Urine Protein 2+ H Urine Glucose (UA) NEG Urine Ketones 15 Urine Blood 2+ H Urine Nitrite NEG Ur Leukocyte Esterase NEG Urine RBC 0 Urine WBC 0-2 Ur Squamous Epith Cells TRACE Urine Bacteria NONE Epithelial Casts 1-4 Granular Casts 0-2 Urine Mucus 1+ Coronavirus (PCR) Influenza Type A (PCR) Influenza Type B (PCR) RSV RNA Qual (PCR) SARS-CoV-2 IgG Ab 08/06/20 08/06/20 08/06/20 07:19 11:49 16:50 WBC RBC Hgb Hct MCV MCH MCHC RDW Plt Count MPV Immature Gran % (Auto) Neut % (Auto) Lymph % (Auto) [place] % (Auto) Eos % (Auto) Baso % (Auto) Lymph # (Auto) [place] # (Auto) Eos # (Auto) Baso # (Auto) Abs Immat Gran (auto) Absolute Neuts (auto) Absolute Nucleated RBC Nucleated RBC % (auto) PT INR D-Dimer Sodium Potassium Chloride Carbon Dioxide Anion Gap BUN Creatinine Estim Creat Clear Calc Estimated GFR POC Glucose 188 H 191 H 217 H Random Glucose Estimat Average Glucose Hemoglobin A1c % Lactic Acid Calcium Ferritin Total Bilirubin Direct Bilirubin AST ALT Alkaline Phosphatase Lactate Dehydrogenase Total Creatine Kinase Troponin I High Sens C-Reactive Protein Total Protein Albumin Triglycerides Cholesterol LDL Cholesterol, Calc HDL Cholesterol Procalcitonin Urine Color Urine Appearance Urine pH Ur Specific [place] Urine Protein Urine Glucose (UA) Urine Ketones Urine Blood Urine Nitrite Ur Leukocyte Esterase Urine RBC Urine WBC Ur Squamous Epith Cells Urine Bacteria Epithelial Casts Granular Casts Urine Mucus Coronavirus (PCR) Influenza Type A (PCR) Influenza Type B (PCR) RSV RNA Qual (PCR) SARS-CoV-2 IgG Ab 08/06/20 08/07/20 08/07/20 21:38 08:38 09:11 WBC RBC Hgb Hct MCV MCH MCHC RDW Plt Count MPV Immature Gran % (Auto) Neut % (Auto) Lymph % (Auto) [place] % (Auto) Eos % (Auto) Baso % (Auto) Lymph # (Auto) [place] # (Auto) Eos # (Auto) Baso # (Auto) Abs Immat Gran (auto) Absolute Neuts (auto) Absolute Nucleated RBC Nucleated RBC % (auto) PT INR D-Dimer Sodium Potassium Chloride Carbon Dioxide Anion Gap BUN Creatinine Estim Creat Clear Calc Estimated GFR POC Glucose 302 H 107 Random Glucose Estimat Average Glucose Hemoglobin A1c % Lactic Acid Calcium Ferritin Total Bilirubin Direct Bilirubin AST ALT Alkaline Phosphatase Lactate Dehydrogenase Total Creatine Kinase Troponin I High Sens C-Reactive Protein Total Protein Albumin Triglycerides Cholesterol LDL Cholesterol, Calc HDL Cholesterol Procalcitonin Urine Color Urine Appearance Urine pH Ur Specific [place] Urine Protein Urine Glucose (UA) Urine Ketones Urine Blood Urine Nitrite Ur Leukocyte Esterase Urine RBC Urine WBC Ur Squamous Epith Cells Urine Bacteria Epithelial Casts Granular Casts Urine Mucus Coronavirus (PCR) Influenza Type A (PCR) Influenza Type B (PCR) RSV RNA Qual (PCR) SARS-CoV-2 IgG Ab Positive 08/07/20 08/07/20 08/07/20 12:24 16:38 17:05 WBC RBC Hgb Hct MCV MCH MCHC RDW Plt Count MPV Immature Gran % (Auto) Neut % (Auto) Lymph % (Auto) [place] % (Auto) Eos % (Auto) Baso % (Auto) Lymph # (Auto) [place] # (Auto) Eos # (Auto) Baso # (Auto) Abs Immat Gran (auto) Absolute Neuts (auto) Absolute Nucleated RBC Nucleated RBC % (auto) PT INR D-Dimer Sodium 141 Potassium 4.1 Chloride 104 Carbon Dioxide 26 Anion Gap 15 BUN 26 H Creatinine 0.95 Estim Creat Clear Calc 78.4 Estimated GFR > 60 POC Glucose 179 H 238 H Random Glucose 263 H Estimat Average Glucose Hemoglobin A1c % Lactic Acid Calcium 8.6 Ferritin Total Bilirubin 0.5 Direct Bilirubin 0.3 AST 43 H ALT 26 Alkaline Phosphatase 50 Lactate Dehydrogenase Total Creatine Kinase Troponin I High Sens C-Reactive Protein Total Protein 6.6 Albumin 3.5 Triglycerides Cholesterol LDL Cholesterol, Calc HDL Cholesterol Procalcitonin Urine Color Urine Appearance Urine pH Ur Specific [place] Urine Protein Urine Glucose (UA) Urine Ketones Urine Blood Urine Nitrite Ur Leukocyte Esterase Urine RBC Urine WBC Ur Squamous Epith Cells Urine Bacteria Epithelial Casts Granular Casts Urine Mucus Coronavirus (PCR) Influenza Type A (PCR) Influenza Type B (PCR) RSV RNA Qual (PCR) SARS-CoV-2 IgG Ab 08/07/20 08/08/20 08/08/20 21:23 06:16 07:44 WBC RBC Hgb Hct MCV MCH MCHC RDW Plt Count MPV Immature Gran % (Auto) Neut % (Auto) Lymph % (Auto) [place] % (Auto) Eos % (Auto) Baso % (Auto) Lymph # (Auto) [place] # (Auto) Eos # (Auto) Baso # (Auto) Abs Immat Gran (auto) Absolute Neuts (auto) Absolute Nucleated RBC Nucleated RBC % (auto) PT INR D-Dimer Sodium 143 Potassium 4.3 Chloride 106 Carbon Dioxide 29 Anion Gap 12 BUN 26 H Creatinine 0.86 Estim Creat Clear Calc 86.6 Estimated GFR > 60 POC Glucose 276 H 146 H Random Glucose 144 H D Estimat Average Glucose Hemoglobin A1c % Lactic Acid Calcium 9.0 Ferritin Total Bilirubin 0.4 Direct Bilirubin 0.2 AST 31 ALT 23 Alkaline Phosphatase 47 Lactate Dehydrogenase Total Creatine Kinase Troponin I High Sens C-Reactive Protein Total Protein 6.4 L Albumin 3.3 L Triglycerides Cholesterol LDL Cholesterol, Calc HDL Cholesterol Procalcitonin Urine Color Urine Appearance Urine pH Ur Specific [place] Urine Protein Urine Glucose (UA) Urine Ketones Urine Blood Urine Nitrite Ur Leukocyte Esterase Urine RBC Urine WBC Ur Squamous Epith Cells Urine Bacteria Epithelial Casts Granular Casts Urine Mucus Coronavirus (PCR) Influenza Type A (PCR) Influenza Type B (PCR) RSV RNA Qual (PCR) SARS-CoV-2 IgG Ab 08/08/20 08/08/20 08/08/20 11:09 16:23 19:59 WBC RBC Hgb Hct MCV MCH MCHC RDW Plt Count MPV Immature Gran % (Auto) Neut % (Auto) Lymph % (Auto) [place] % (Auto) Eos % (Auto) Baso % (Auto) Lymph # (Auto) [place] # (Auto) Eos # (Auto) Baso # (Auto) Abs Immat Gran (auto) Absolute Neuts (auto) Absolute Nucleated RBC Nucleated RBC % (auto) PT INR D-Dimer Sodium Potassium Chloride Carbon Dioxide Anion Gap BUN Creatinine Estim Creat Clear Calc Estimated GFR POC Glucose 193 H 213 H 299 H Random Glucose Estimat Average Glucose Hemoglobin A1c % Lactic Acid Calcium Ferritin Total Bilirubin Direct Bilirubin AST ALT Alkaline Phosphatase Lactate Dehydrogenase Total Creatine Kinase Troponin I High Sens C-Reactive Protein Total Protein Albumin Triglycerides Cholesterol LDL Cholesterol, Calc HDL Cholesterol Procalcitonin Urine Color Urine Appearance Urine pH Ur Specific [place] Urine Protein Urine Glucose (UA) Urine Ketones Urine Blood Urine Nitrite Ur Leukocyte Esterase Urine RBC Urine WBC Ur Squamous Epith Cells Urine Bacteria Epithelial Casts Granular Casts Urine Mucus Coronavirus (PCR) Influenza Type A (PCR) Influenza Type B (PCR) RSV RNA Qual (PCR) SARS-CoV-2 IgG Ab 08/09/20 08/09/20 08/09/20 07:55 09:01 11:27 WBC RBC Hgb Hct MCV MCH MCHC RDW Plt Count MPV Immature Gran % (Auto) Neut % (Auto) Lymph % (Auto) [place] % (Auto) Eos % (Auto) Baso % (Auto) Lymph # (Auto) [place] # (Auto) Eos # (Auto) Baso # (Auto) Abs Immat Gran (auto) Absolute Neuts (auto) Absolute Nucleated RBC Nucleated RBC % (auto) PT INR D-Dimer Sodium 141 Potassium 3.9 Chloride 105 Carbon Dioxide 26 Anion Gap 14 BUN 26 H Creatinine 0.79 Estim Creat Clear Calc 94.3 Estimated GFR > 60 POC Glucose 157 H 224 H Random Glucose 222 H D Estimat Average Glucose Hemoglobin A1c % Lactic Acid Calcium 8.5 Ferritin Total Bilirubin 0.4 Direct Bilirubin 0.2 AST 21 ALT 22 Alkaline Phosphatase 48 Lactate Dehydrogenase Total Creatine Kinase Troponin I High Sens C-Reactive Protein Total Protein 6.3 L Albumin 3.3 L Triglycerides Cholesterol LDL Cholesterol, Calc HDL Cholesterol Procalcitonin Urine Color Urine Appearance Urine pH Ur Specific [place] Urine Protein Urine Glucose (UA) Urine Ketones Urine Blood Urine Nitrite Ur Leukocyte Esterase Urine RBC Urine WBC Ur Squamous Epith Cells Urine Bacteria Epithelial Casts Granular Casts Urine Mucus Coronavirus (PCR) Influenza Type A (PCR) Influenza Type B (PCR) RSV RNA Qual (PCR) SARS-CoV-2 IgG Ab 08/09/20 08/09/20 08/10/20 16:00 20:27 06:01 WBC RBC Hgb Hct MCV MCH MCHC RDW Plt Count MPV Immature Gran % (Auto) Neut % (Auto) Lymph % (Auto) [place] % (Auto) Eos % (Auto) Baso % (Auto) Lymph # (Auto) [place] # (Auto) Eos # (Auto) Baso # (Auto) Abs Immat Gran (auto) Absolute Neuts (auto) Absolute Nucleated RBC Nucleated RBC % (auto) PT INR D-Dimer Sodium Potassium Chloride Carbon Dioxide Anion Gap BUN Creatinine Estim Creat Clear Calc Estimated GFR POC Glucose 361 H* 324 H Random Glucose Estimat Average Glucose Hemoglobin A1c % Lactic Acid Calcium Ferritin Total Bilirubin 0.4 Direct Bilirubin 0.2 AST 31 D ALT 29 Alkaline Phosphatase 43 Lactate Dehydrogenase Total Creatine Kinase Troponin I High Sens C-Reactive Protein Total Protein 5.9 L Albumin 3.0 L Triglycerides Cholesterol LDL Cholesterol, Calc HDL Cholesterol Procalcitonin Urine Color Urine Appearance Urine pH Ur Specific [place] Urine Protein Urine Glucose (UA) Urine Ketones Urine Blood Urine Nitrite Ur Leukocyte Esterase Urine RBC Urine WBC Ur Squamous Epith Cells Urine Bacteria Epithelial Casts Granular Casts Urine Mucus Coronavirus (PCR) Influenza Type A (PCR) Influenza Type B (PCR) RSV RNA Qual (PCR) SARS-CoV-2 IgG Ab 08/10/20 08/10/20 08/10/20 06:01 07:25 11:18 WBC RBC Hgb Hct MCV MCH MCHC RDW Plt Count MPV Immature Gran % (Auto) Neut % (Auto) Lymph % (Auto) [place] % (Auto) Eos % (Auto) Baso % (Auto) Lymph # (Auto) [place] # (Auto) Eos # (Auto) Baso # (Auto) Abs Immat Gran (auto) Absolute Neuts (auto) Absolute Nucleated RBC Nucleated RBC % (auto) PT INR D-Dimer Sodium 141 Potassium 4.2 Chloride 107 Carbon Dioxide 25 Anion Gap 13 BUN 22 H Creatinine 0.79 Estim Creat Clear Calc 94.3 Estimated GFR > 60 POC Glucose 130 H 232 H Random Glucose 106 D Estimat Average Glucose Hemoglobin A1c % Lactic Acid Calcium 8.4 Ferritin Total Bilirubin Direct Bilirubin AST ALT Alkaline Phosphatase Lactate Dehydrogenase Total Creatine Kinase Troponin I High Sens C-Reactive Protein Total Protein Albumin Triglycerides Cholesterol LDL Cholesterol, Calc HDL Cholesterol Procalcitonin Urine Color Urine Appearance Urine pH Ur Specific [place] Urine Protein Urine Glucose (UA) Urine Ketones Urine Blood Urine Nitrite Ur Leukocyte Esterase Urine RBC Urine WBC Ur Squamous Epith Cells Urine Bacteria Epithelial Casts Granular Casts Urine Mucus Coronavirus (PCR) Influenza Type A (PCR) Influenza Type B (PCR) RSV RNA Qual (PCR) SARS-CoV-2 IgG Ab 01/08/10/20 08/11/20 16:22 20:50 07:50 WBC RBC Hgb Hct MCV MCH MCHC RDW Plt Count MPV Immature Gran % (Auto) Neut % (Auto) Lymph % (Auto) [place] % (Auto) Eos % (Auto) Baso % (Auto) Lymph # (Auto) [place] # (Auto) Eos # (Auto) Baso # (Auto) Abs Immat Gran (auto) Absolute Neuts (auto) Absolute Nucleated RBC Nucleated RBC % (auto) PT INR D-Dimer Sodium Potassium Chloride Carbon Dioxide Anion Gap BUN Creatinine Estim Creat Clear Calc Estimated GFR POC Glucose 352 H* 228 H 93 Random Glucose Estimat Average Glucose Hemoglobin A1c % Lactic Acid Calcium Ferritin Total Bilirubin Direct Bilirubin AST ALT Alkaline Phosphatase Lactate Dehydrogenase Total Creatine Kinase Troponin I High Sens C-Reactive Protein Total Protein Albumin Triglycerides Cholesterol LDL Cholesterol, Calc HDL Cholesterol Procalcitonin Urine Color Urine Appearance Urine pH Ur Specific [place] Urine Protein Urine Glucose (UA) Urine Ketones Urine Blood Urine Nitrite Ur Leukocyte Esterase Urine RBC Urine WBC Ur Squamous Epith Cells Urine Bacteria Epithelial Casts Granular Casts Urine Mucus Coronavirus (PCR) Influenza Type A (PCR) Influenza Type B (PCR) RSV RNA Qual (PCR) SARS-CoV-2 IgG Ab Discharge Plan Discharge Anticipated Discharge Date/Time: 08/11/20 09:34 Patient Disposition: Home, Self-Care Referrals: [facility] [Provider Group] - 1 Day (Appointment 08/15/2020 at 2pm. Please call the office at [phone], if you need to change it. ) Discharge Medications: New dexamethasone [Decadron] 6 mg tablet 6 mg PO DAILY Qty: 4 RF: 0 aspirin 81 mg Tablet,Delayed Release (Dr/Ec) 81 mg PO DAILY Qty: 60 RF: 0 atorvastatin [Lipitor] 40 mg tablet 40 mg PO BEDTIME Qty: 30 RF: 0 metformin 500 mg tablet 500 mg PO BID Qty: 60 RF: 0 No Action No Known Home Meds RF: 0 Discharge Orders: Discharge Order (Routine); Ordered 08/11/20 Ordered By: Ortega Mcconnell Diet: diabetic diet Activity on Discharge: As tolerated Stand Alone Forms: Patient Portal Discharge page Visit Report Forms: Patient Portal Discharge page Care Plan Goals: Full recovery from COVID-19 Health Concerns: COVID-19 Plan of Treatment: Take med dexamethasone as prescribed, follow-up with your primary care doctor in a week call for appointment CDC Guidelines for home isolation: - Stay away from others - Limit contact with pets and animals: If you must care for a pet, wash your hands before and after interacting with them - Wear a mask if you are sick - Cover your mouth and nose with a tissue when you cough or sneeze. Dispose of tissues in a lined trash can and wash your hands immediately with soap and water for at least 20 seconds. If soap and water are not available, clean hands with alcohol-based hand changeover operator that contains at least 60% alcohol. - Clean your hands often with soap and water for at least 20 seconds - Avoid touching your eyes, nose and mouth with unwashed hands - Do not share dishes, drinking glasses, cups, eating utensils, towels, or bedding with other people in your home. After using these items, wash them thoroughly with soap and water or put in the varitypist. - Clean high-touch surfaces in your isolation area (?sick room? and bathroom) every day; let a caregiver clean and disinfect high-touch surfaces in other areas of the home. Clean the area or item with soap and water or another detergent if it is dirty. Then, use a household disinfectant. Seek medical attention, but call first: - Seek medical care right away if your illness is worsening (for example, if you have difficulty breathing). - Call your doctor before going in: Before going to the doctor?s office or emergency room, call ahead and tell them your symptoms. They will tell you what to do. - If possible, put on a facemask before you enter the building. If you can?t put on a facemask, try to keep a safe distance from other people (at least 6 feet away). This will help protect the people in the office or waiting room. - Follow care instructions from your healthcare provider and local health department: Your local health authorities will give instructions on checking your symptoms and reporting information. Emergency warning signs for COVID-19: - Difficulty breathing or shortness of breath - Persistent pain or pressure in the chest - New confusion or inability to arouse - Bluish lips or face Additional Instructions: - [You can be with others after At least 10 days since symptoms first appeared and At least 24 hours with no fever without fever-reducing medication and Other symptoms of COVID-19 are improving Loss of taste and smell may persist for weeks or months after recovery and need not delay the end of isolation? If you had severe illness from COVID-19 (you were admitted to a hospital and needed oxygen), your healthcare provider may recommend that you stay in isolation for longer than 10 days after your symptoms first appeared (possibly up to 20 days) and you may need to finish your period of isolation at home.] Take Metformin for diabetes, check your sugars before meals and at bedtime, follow up with your Doctor in a week Take Lipitor for high cholesterol Take baby aspirin to preven heart disease Discharge Date/Time: 08/11/20 15:30
[2020-08-11 11:32] LABS: Glucose, Whole Blood 175 mg/dL (60-115)
[2020-08-11 11:36] VITALS: BP 146/89; PULSE 77; RESP 20; TEMP 37.1; O2SAT 94
[2020-08-11] MEDS: Remdesivir 100 MG in 0.9 % Sodium Chloride 230 ML 115 MG IV (12:40)
--- NOTE | 2020-08-11 14:11 | MHC.CM.PN ---
IMM DELIVERED. PATIENT AGREES TO DISCHARGE PLAN, AND VERBALIZES COMPREHENSION THAT SON WILL ARRIVE FOR 15:30 TO TRANSPORT PATIENT. IMM ORIGINAL LEFT WITH PATIENT PER REQUEST. COPY OF IMM 08/11 IN CHART
== END 2020-08-11 15:30 | disposition home or self-care (01) | DRG 177 ==
LOC: HO.ED 16:50 → HO.EDOVER 16:51 → HO.IMC 08-06 19:12 → HO.ISO 08-07 17:28
PROVIDERS: Nurse Practitioner Acute Care; Nurse Practitioner Primary Care; Admitting Provider Internal Medicine; Emergency Provider Emergency Medicine; Visit Provider Internal Medicine
DX: U07.1 COVID-19 (principal); J12.82 Pneumonia due to coronavirus disease 2019; I21.4 Non-ST elevation (NSTEMI) myocardial infarction; G04.90 Encephalitis and encephalomyelitis, unspecified; I44.1 Atrioventricular block, second degree; E11.65 Type 2 diabetes mellitus with hyperglycemia; Z79.82 Long term (current) use of aspirin; Z79.84 Long term (current) use of oral hypoglycemic drugs; Z79.899 Other long term (current) drug therapy
CPT/HCPCS: 0241U; 36415; 71045; 71275; 80048; 80053; 80061; 80076; 81001; 82550; 82728; 82947; 83036; 83605; 83615; 84145; 84484; 85025; 85379; 85610; 86140; 86769; 87040; 93005; 96361; 96365; 96366; 96367; 96375; 97163; 99285; J0456; J0461; J0696; J1100; J1650; J3490; Q9967

== ENCOUNTER 2022-08-02 11:15 | Inpatient (IN) | payer MEDICARE, MEDICAID, SELFPAY ==
[2022-08-02] VITALS (7 sets, daily range): BP systolic 158–186; BP diastolic 59–100; PULSE 35–67; RESP 19–24; TEMP 36.6–37.1; O2SAT 95–98; BMI 30.2; BMI 29.3
--- NOTE | ~2022-08-02 | CT_ITS ---
EXAMINATION: CT BRAIN WITHOUT CONTRAST. CHEST X-RAY. CLINICAL INFORMATION: Generalized weakness. COMPARISON: None TECHNIQUE: 5 mm thin axial and reformatted 2 mm thin sagittal and coronal images of brain were obtained without contrast. DLP [id number] examination was performed using dose optimization technique as appropriate, variously including the following: Automated exposure control Adjustment of MA and/or KV according to patient size(this includes techniques or standardized protocols for targeted exams where dose is matched to indication/reason for exam; extremities or head. Use of iterative reconstruction techniques. Chest one view. FINDINGS: Chest: The lungs are somewhat expanded with patchy increased markings in left lung base. Rest lungs are clear. The heart size and pulmonary vascularity is normal. No gross bony abnormality. Brain: There is no acute intra-axial, extra-axial bleed, masses, collection or midline shift. There is no acute infarction in evolution. There is no edema. There is mild periventricular hypodensity in both cerebral hemispheres without mass effect from chronic small vessel ischemic changes. Bone windows reveal no calvarial abnormality. There is no scalp soft tissue abnormality. Bilateral paranasal sinuses and mastoid air cells are well-aerated. CT/CT head/brain wo IV con IMPRESSION: Patchy atelectasis or infiltrate left lung base. There is no acute intracranial process seen. There is age appropriate volume loss with chronic small vessel ischemic changes.
--- NOTE | ~2022-08-02 | FL_ITS ---
EXAMINATION: XR FLUOROSCOPY WITH IMAGES CLINICAL INFORMATION: Pacemaker placement COMPARISON: Chest x-ray on 08/02/2022 TECHNIQUE: Fluoroscopy Supervised By: Dr. Pancho Mcgee. Fluoroscopy Time: 575.1 seconds. Cumulative Dose: 184.13 mGy. Images: 1. FINDINGS: Fluoroscopy provided during cardiac device implantation. FL/FL guidance in OR IMPRESSION: Please see the operative report for additional information.
--- NOTE | ~2022-08-02 | XR_ITS ---
EXAMINATION: XR CHEST CLINICAL INFORMATION: Pacemaker placement COMPARISON: 08/02/2022 TECHNIQUE: Frontal view of the chest was obtained. FINDINGS: Since the prior study a left chest wall dual-lead pacemaker has been placed with one lead in the atria the other near the right ventricular apex. The exam is otherwise unremarkable. No pneumothorax. XR/XR chest 1V IMPRESSION: New left chest wall pacemaker in good position. No pneumothorax.
--- NOTE | 2022-08-02 11:39 | ECG_ITS ---
Test Reason : ams Blood Pressure : / mmHG Vent. Rate : 059 BPM Atrial Rate : 091 BPM P-R Int : 000 ms QRS Dur : 096 ms QT Int : 462 ms P-R-T Axes : 082 -38 104 degrees QTc Int : 457 ms Sinus rhythm with 2nd degree A-V block (Mobitz I) Left axis deviation Left ventricular hypertrophy with repolarization abnormality ( R in aVL , Waqar product ) Abnormal ECG When compared with ECG of 09-AUG-2020 08:18, No significant changes seen Referred By: Christos Ortiz Electronically Signed By:Walt Martinez
--- NOTE | 2022-08-02 11:45 | ED_ITS ---
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 Patient has been home sitting on the couch for the past 3 days complaining of generalized weakness unable to get out of the couch and if patient has the urge to urinate or have a bowel movement he does it next to the couch on the floor and his family will clean it, patient has no incontinence just too weak to get out of the couch to go to the bathroom, according to the family patient normally lives home alone fully functional still cook except for the last 3 days. Patient is noncompliant with his medication, do not see his doctor for many years. Patient declined any back pain or weakness or numbness in the lower extremities. According to the family this symptoms happen in the past lasted for 2 days patient refused to come for medical attention. Related Data Previous Rx's Medication Instructions Recorded aspirin 81 mg tablet,delayed 81 mg PO DAILY #60 tabs 08/11/20 release atorvastatin 40 mg tablet (Lipitor) 40 mg PO BEDTIME #30 tabs 08/11/20 dexamethasone 6 mg tablet 6 mg PO DAILY #4 tabs 08/11/20 (Decadron) metformin 500 mg tablet 500 mg PO BID #60 tabs 08/11/20 Allergies Allergy/AdvReac Type Severity Reaction Status Date / Time No Known Allergies Allergy Verified 08/05/20 11:46 Review of Systems Review of Systems: All other systems are reviewed and are negative Constitutional: Reports as per HPI and Reports no additional constitutional complaints Eyes: Reports as per HPI and Reports no additional eye complaints Reports system reviewed and no additional complaints, except as documented Cardiovascular: Reports as per HPI and Reports no additional cardiovascular complaints Respiratory: Reports as per HPI and Reports no additional respiratory complaints Gastrointestinal: Reports as per HPI and Reports no additional gastrointestinal complaints Genitourinary: Reports no additional female genitourinary complaints Musculoskeletal: Reports no additional musculoskeletal complaints Skin/Breast: Reports system reviewed and no additional complaints, except as docu Psychiatric: Reports no additional psychiatric complaints Endocrine: Reports no additional endocrine complaints Hematologic/Lymphatic: Reports no additional hematologic/lymphatic complaints Allergic/Immunologic: Reports no additional allergic/immunologic complaints Reports system reviewed and no additional complaints, except as documented and Reports Abnormal speech present [facility] [place] Past Medical History Medical History Pneumonia Social History Social History Household Members: Family Household Members Other:: Lives with step son Housing: Apartment Alcohol intake: unknown Smoked in Last 30 Days: No Use of substances other than those prescribed or required for medical reasons: No Substance Use Type: Unknown Advance Directives: No service: No Current occupational status: disabled Physical Exam ED Vital Signs: Vital Signs - 24 hr 08/02/22 11:28 08/02/22 14:00 Temperature 97.8 F 97.8 F Pulse Rate 67 50 Respiratory Rate 20 24 H Blood Pressure 176/100 H 186/59 H Pulse Oximetry 98 97 Oxygen Delivery Method Room Air Room Air BMI result Body Mass Index 30.2 Vital signs have been reviewed as appeared to be correct. Blood pressure normal. Heart rate normal. Respiration rate normal. Temperature normal. Oxygen saturation normal. Appearance: Alert. Oriented X3. No acute distress. Head: Normal external exam. Normocephalic. Atraumatic. No John signs noted. No raccoon eyes noted Eyes: PERRLA. EOMI. Conjunctiva and sclera normal. Eyelids normal. ENT: TM's Normal. Pharynx normal. Uvula midline. Moist mucous membranes. No trismus noted. No drooling noted. No muffled voice noted. Neck: Normal inspection. Neck supple. FROM. No adenopathy. Thyroid Normal. No meningeal signs. No neck mass noted. CVS: Normal heart rate and rhythm. Heart sound normal. No murmurs noted. Pulses normal throughout. Respiratory: No respiratory distress. Painless inspiration. Breath sounds normal. No wheezes/rales/rhonchi noted. Chest nontender. No accessory muscle usage noted or decreased air movement noted. Abdomen: Soft and nontender. Bowel sounds normal in all 4 quadrants. No distention noted. No organomegaly noted. No visible injury noted. Back: No CVA tenderness. Full range of motion noted. Skin: Skin warm and dry. Normal skin color. Normal skin turgor. No rashes/lesions/lacerations noted. Extremities: No lower extremity edema. Extremities exhibit normal range of motion. Extremities nontender. Neuro: Oriented X 3. Cranial nerve exam: II-XII are grossly intact No motor deficit. No sensory deficit. Reflexes normal. Course Course Course Narrative: 77-year-old male came in from home for generalized weakness and unable to ambulate, workup in the emergency department revealed left lung pneumonia no sirs, no evidence of severe sepsis or septic shock. Start the patient on ceftriaxone and Zithromax with IV hydration patient will need admission for inability to ambulate at home and care for himself. Medications Administered Discontinued Medications Generic Name Dose Route Start Last Admin Trade Name Freq PRN Reason Stop Dose Admin Sodium Chloride 1,000 mls @ 999 mls/hr 08/02/22 11:39 08/02/22 12:08 Ns IV 08/02/22 12:39 999 mls/hr .Q1H1M ONE Administration Medical Decision Making Differential Diagnosis Differential Diagnoses: The differential diagnosis associated with the presentation includes (Pneumonia, dehydration, lower motor neuron lesion, peripheral nerve demyelination disease.) Admission/Observation Consideration of admission/observation: Escalation of care including admission/observation considered Consult Healthcare Provider Management of the patient was discussed with: Hospitalist Lab Data MDM Lab Attestation statement: I reviewed the patient's lab results. 08/02/22 11:58 08/02/22 11:58 Labs: Lab Results 08/02/22 08/02/22 08/02/22 Range/Units 11:58 11:58 11:58 WBC 11.0 H (4.8-10.8) X10*3/uL RBC 5.34 (4.60-5.80) X10*6/uL Hgb 14.9 (14.0-18.0) g/dl Hct 45.4 (42.0-52.0) % MCV 85.0 (80.0-98.0) fL MCH 27.9 (27.0-33.0) pg MCHC 32.8 (31.0-36.0) g/dl RDW 13.7 (11.0-16.0) % Plt Count 251 (160-400) X10*3/uL MPV 11.4 (9.4-12.4) fL Immature Gran % (Auto) 0.3 (0.0-0.4) % Neut % (Auto) 79.4 H (45-73) % Lymph % (Auto) 13.6 L (20-40) % Mercer % (Auto) 6.3 (2-11) % Eos % (Auto) 0.1 (0-4) % Baso % (Auto) 0.3 (0-2) % Lymph # (Auto) 1.5 (1.2-4.9) X10*3/uL Mercer # (Auto) 0.7 (0.1-1.2) X10*3/uL Eos # (Auto) 0.0 (0.0-0.4) X10*3/uL Baso # (Auto) 0.0 (0.0-0.2) X10*3/uL Abs Immat Gran (auto) 0.03 (0.00-0.03) X10*3/uL Absolute Neuts (auto) 8.8 H (2.0-8.3) x10*3/uL Absolute Nucleated RBC 0.000 (0.0-0.012) X10*3/uL Nucleated RBC % (auto) 0.0 (0.0-0.2) /100WBC Sodium 139 (135-145) mmol/L Potassium 4.0 (3.3-5.1) mmol/L Chloride 104 (96-108) mmol/L Carbon Dioxide 23 (22-29) mmol/L Anion Gap 16 (12-20) BUN 17 H (9-16) mg/dL Creatinine 1.10 (0.5-1.4) mg/dL Estim Creat Clear Calc 65.2 Estimated GFR > 60 Random Glucose 249 H (60-115) mg/dL Calcium 9.9 D (8.4-10.2) mg/dL Total Bilirubin 0.9 (0.0-1.0) mg/dL Direct Bilirubin 0.3 (0.0-0.5) mg/dL AST 19 (5-37) U/L ALT 19 (0-40) U/L Alkaline Phosphatase 57 (39-117) U/L Troponin I High Sens 99.2 H (<3.5-35.0) ng/L Total Protein 7.4 (6.5-8.0) g/dL Albumin 4.4 (3.5-5.0) g/dL Lipase 42 (8-78) U/L Influenza Type A (PCR) (Negative) Influenza Type B (PCR) (Negative) RSV RNA Qual (PCR) (Negative) SARS-CoV-2 RNA (RT-PCR) (Negative) 08/02/22 Range/Units 12:48 WBC (4.8-10.8) X10*3/uL RBC (4.60-5.80) X10*6/uL Hgb (14.0-18.0) g/dl Hct (42.0-52.0) % MCV (80.0-98.0) fL MCH (27.0-33.0) pg MCHC (31.0-36.0) g/dl RDW (11.0-16.0) % Plt Count (160-400) X10*3/uL MPV (9.4-12.4) fL Immature Gran % (Auto) (0.0-0.4) % Neut % (Auto) (45-73) % Lymph % (Auto) (20-40) % Mercer % (Auto) (2-11) % Eos % (Auto) (0-4) % Baso % (Auto) (0-2) % Lymph # (Auto) (1.2-4.9) X10*3/uL Mercer # (Auto) (0.1-1.2) X10*3/uL Eos # (Auto) (0.0-0.4) X10*3/uL Baso # (Auto) (0.0-0.2) X10*3/uL Abs Immat Gran (auto) (0.00-0.03) X10*3/uL Absolute Neuts (auto) (2.0-8.3) x10*3/uL Absolute Nucleated RBC (0.0-0.012) X10*3/uL Nucleated RBC % (auto) (0.0-0.2) /100WBC Sodium (135-145) mmol/L Potassium (3.3-5.1) mmol/L Chloride (96-108) mmol/L Carbon Dioxide (22-29) mmol/L Anion Gap (12-20) BUN (9-16) mg/dL Creatinine (0.5-1.4) mg/dL Estim Creat Clear Calc Estimated GFR Random Glucose (60-115) mg/dL Calcium (8.4-10.2) mg/dL Total Bilirubin (0.0-1.0) mg/dL Direct Bilirubin (0.0-0.5) mg/dL AST (5-37) U/L ALT (0-40) U/L Alkaline Phosphatase (39-117) U/L Troponin I High Sens (<3.5-35.0) ng/L Total Protein (6.5-8.0) g/dL Albumin (3.5-5.0) g/dL Lipase (8-78) U/L Influenza Type A (PCR) NEGATIVE (Negative) Influenza Type B (PCR) NEGATIVE (Negative) RSV RNA Qual (PCR) NEGATIVE (Negative) SARS-CoV-2 RNA (RT-PCR) NEGATIVE (Negative) Independent Interpretation I performed an independent interpretation of an: EKG (Sinus bradycardia at 59 beats per minute with a second-degree AV block Mobitz 1, left axis deviation, LVH, no ST-T changes.), Plain X-Ray (Chest: Left lung base pneumonia.) and CT Scan (Head: No acute intracranial pathology.) Radiology Impression Discussion of test interpretation with radiology: I have reviewed the radiologist's reading. Discharge Plan Discharge Clinical Impression: Pneumonia, Inability to walk, Generalized weakness Patient Disposition: Admitted As Inpatient
[2022-08-02 12:04] LABS: MANUAL DIFF FLAG NO
[2022-08-02] MEDS: 0.9 % Sodium Chloride 1,000 ML 999 ML IV (12:08)
[2022-08-02 12:18] LABS: Basophils Percent Auto 0.3 % (0-2); Eosinophils Percent Auto 0.1 % (0-4); Hematocrit 45.4 % (42.0-52.0); Hemoglobin 14.9 g/dl (14.0-18.0); Imm Gran Abs Auto 0.03 X10*3/uL (0.00-0.03); Imm Gran Pct Auto 0.3 % (0.0-0.4); Lymphocytes Absolute Auto 1.5 X10*3/uL (1.2-4.9); Lymphocytes Percent Auto 13.6 % (20-40); Mean Corpuscular HGB Conc 32.8 g/dl (31.0-36.0); Mean Corpuscular Hemoglobin 27.9 pg (27.0-33.0); Mean Platelet Volume 11.4 fL (9.4-12.4); Monocytes Absolute Auto 0.7 X10*3/uL (0.1-1.2); Monocytes Percent Auto 6.3 % (2-11); Neutrophils Absolute Auto 8.8 x10*3/uL (2.0-8.3); Neutrophils Percent Auto 79.4 % (45-73); Platelet Count 251 X10*3/uL (160-400); Red Blood Count 5.34 X10*6/uL (4.60-5.80); Red Cell Distribution Width 13.7 % (11.0-16.0)
[2022-08-02 12:20] LABS: Alanine Aminotransferase 19 U/L (0-40); Albumin Level 4.4 g/dL (3.5-5.0); Alkaline Phosphatase 57 U/L (39-117); Anion Gap 16 (12-20); Aspartate Amino Transferase 19 U/L (5-37); Bilirubin Direct 0.3 mg/dL (0.0-0.5); Bilirubin Total 0.9 mg/dL (0.0-1.0); Blood Urea Nitrogen 17 mg/dL (9-16); Calcium 9.9 mg/dL (8.4-10.2); Carbon Dioxide 23 mmol/L (22-29); Chloride 104 mmol/L (96-108); Creatinine Clr Calc Pharmacy 65.2; Estimated Glomerular Filt Rate > 60; Glucose Random 249 mg/dL (60-115); Lipase 42 U/L (8-78); Sodium 139 mmol/L (135-145); Total Protein 7.4 g/dL (6.5-8.0)
[2022-08-02 12:27] LABS: Troponin-I High Sensitivity 99.2 ng/L (<3.5-35.0)
[2022-08-02 13:51] LABS: Influenza A PCR NEGATIVE (Negative); Influenza B PCR NEGATIVE (Negative); Resp Syncy Virus RNA Qual PCR NEGATIVE (Negative); SARS COV2 PCR INHOUSE NEGATIVE (Negative)
--- NOTE | 2022-08-02 14:36 | PHA.MEDREC ---
Pharmacy Consult ? Medication Reconciliation Pharmacy has completed the medication reconciliation. Patient reports being non-adherent to medications. States they don't have a PCP. Does not take any prescribed medications.
[2022-08-02] MEDS: cefTRIAXone sodium 1 GM in 0.9 % Sodium Chloride 50 ML IV (14:44)
--- NOTE | 2022-08-02 14:46 | PM.IMHP ---
History of Present Illness Date of Service: 08/02/22 Attending physician on admission: Jalil Jacobs Chief Complaint: confusion this is a 77-year-old Welsh-speaking male who was brought to the emergency department due to confusion. History was obtained with the assistance of a lead refiner but even so patient was confused tonight unable to provide any significant history. History was primarily obtained from his stepdaughter at the bedside. She states that her brother went to the patient's house yesterday and noted that he was unable to get up off the couch. He called the ambulance but the patient refused to go in the ambulance. Today he appeared even worse and more confused and they brought him to the hospital for evaluation. The patient does endorse a productive cough but denies any shortness of breath, abdominal pain, diarrhea. He also reports intermittent dysuria. He has no known recent sick contacts. Today in the emergency department due to confusion he had CT scan of the brain which showed no acute changes. Chest x-ray showed probable left long pneumonia. He had no evidence of leukocytosis, was afebrile. He was treated with IV ceftriaxone and IV azithromycin. The patient's stepdaughter states that the patient does not have a PCP and is not compliant with taking any medication. He has not followed up any medical providers since last time he was in the hospital. Due to his confusion and weakness the decision was made to admit him to the hospital for further management. Review of Systems Review of Systems: Yes all other systems are reviewed and are negative Constitutional: Constitutional: Denies chills and Denies fever(s) Cardiovascular: Cardiovascular: Denies chest pain, Denies palpitations and Denies dyspnea Respiratory: Respiratory: Reports cough and Denies dyspnea Gastrointestinal: Gastrointestinal: Denies abdominal pain, Denies nausea and Denies vomiting Neurologic: Reports confusion Psychiatric: Psychiatric: Reports confusion Endocrine: Endocrine: Denies palpitations [facility] Medical History (Updated 08/02/22 @ 14:51 by VENU Denney) Diabetes Pneumonia Wenckebach Pertinent family history: reviewed, patient unable to provide history due to confusion; step daughter is not aware of his family history Social History (Updated 08/02/22 @ 14:54 by VENU Denney) Household Members: None Housing: Apartment Alcohol intake: unknown Patient Tobacco Use Status: Never used Tobacco Smoked in Last 30 Days: No Use of substances other than those prescribed or required for medical reasons: No Substance Use Type: Unknown Advance Directives: No service: No Current occupational status: disabled Meds Allergies Allergy/AdvReac Type Severity Reaction Status Date / Time No Known Allergies Allergy Verified 08/05/20 11:46 Active Medications: Current Medications Acetaminophen (Acetaminophen 325 Mg Tablet) 650 mg PO Q6H PRN PRN Reason: Pain, Mild (Pain Scale 1-3) Albuterol Sulfate (Albuterol Sulfate (0.042%) 1.25 Mg/3 Ml Vial.Neb) 1.25 mg INHALE RQ4H PRN PRN Reason: Shortness of Breath Dextrose (Dextrose 50 % 25 Gm/50 Ml Syringe) 25 gm IVPUSH Q15M PRN; Protocol PRN Reason: per Hypoglycemia Standing Ord. Docusate Sodium (Docusate Sodium 100 Mg Capsule) 100 mg PO DAILY PRN PRN Reason: Constipation Enoxaparin Sodium (Enoxaparin Sodium 40 Mg/0.4 Ml Syringe) 40 mg SUBCUT Q24H NICOLETTE Glucose (Glucose Gel 15 Gm Gel..Gram.) 15 gm PO Q15M PRN; Protocol PRN Reason: per Hypoglycemia Standing Ord. Guaifenesin (Guaifenesin 200 Mg/10 Ml 10 Ml Liquid) 10 ml PO Q6H PRN PRN Reason: Cough Azithromycin 500 mg/ Sodium (Chloride) 250 mls @ 125 mls/hr IV ONCE ONE Stop: 08/02/22 15:46 Azithromycin 500 mg/ Sodium (Chloride) 250 mls @ 125 mls/hr IV Q24H NICOLETTE Ceftriaxone Sodium 1 gm/ (Sodium Chloride) 50 mls @ 100 mls/hr IV Q24H [facility] Insulin Human Lispro (Insulin Lispro 100 Unit/Ml 3 Ml Vial) 0 unit SUBCUT QIDACHS [facility]; Protocol Pharmacy Consult (Consult Rx Perform Med Rec) 1 each MISCELLANE ONCE PRN PRN Reason: Consult order Sodium Chloride (0.9 % Sodium Chloride Flush 3 Ml Syringe) 3 ml IVFLUSH QSHIFT [facility] Home Medications Medication Instructions Recorded Confirmed Last Taken Type acetaminophen 325 mg tablet 650 mg PO Q6H PRN Pain 08/02/22 08/02/22 Unknown History (Tylenol) Physical Exam Vital Signs and Narrative: Vital Signs: Last Vital Signs Temp 97.8 F 08/02/22 14:00 Pulse 50 01/14/23 14:00 Resp 24 H 08/02/22 14:00 BP 173/62 H 08/02/22 14:45 Pulse Ox 97 08/02/22 14:00 O2 Del Method 08/02/22 14:00 BMI result Body Mass Index 30.2 Const: Other: awake, following commands, confused; is able to state that he is in a hospital, but doesn't know which one; does not know the year or the president General: confusion Orientation/consciousness: oriented to person, oriented to place and confusion Resp: Effort & Inspection: normal respiratory effort, no respiratory distress and no use of accessory muscles Auscultation: diminished lung sounds Cardio: Rate: regular rate Heart sounds: S1 normal heart sound present and S2 normal heart sound present GI: Inspection: No distended Palpation (GI): Soft to palpation and nontender Neuro: General: oriented to person, oriented to place, moves all extremities and confusion Cranial nerves: Yes Midline tongue present Motor exam (neuro): pronator drift and No Asterixis during motor activity present Extrem: General: No no pedal edema Results Labs 08/02/22 11:58 08/02/22 11:58 Labs: Laboratory Results - last 24 hr 08/02/22 08/02/22 08/02/22 11:58 11:58 11:58 MCV 85.0 MCH 27.9 MCHC 32.8 RDW 13.7 Plt Count 251 MPV 11.4 Immature Gran % (Auto) 0.3 Neut % (Auto) 79.4 H Lymph % (Auto) 13.6 L Love % (Auto) 6.3 Eos % (Auto) 0.1 Baso % (Auto) 0.3 Lymph # (Auto) 1.5 Love # (Auto) 0.7 Eos # (Auto) 0.0 Baso # (Auto) 0.0 Abs Immat Gran (auto) 0.03 Absolute Neuts (auto) 8.8 H Absolute Nucleated RBC 0.000 Nucleated RBC % (auto) 0.0 Anion Gap 16 Estim Creat Clear Calc 65.2 Estimated GFR > 60 Random Glucose 249 H Calcium 9.9 D Total Bilirubin 0.9 Direct Bilirubin 0.3 AST 19 ALT 19 Alkaline Phosphatase 57 Troponin I High Sens 99.2 H Total Protein 7.4 Albumin 4.4 Lipase 42 Influenza Type A (PCR) Influenza Type B (PCR) RSV RNA Qual (PCR) SARS-CoV-2 RNA (RT-PCR) 08/02/22 12:48 MCV MCH MCHC RDW Plt Count MPV Immature Gran % (Auto) Neut % (Auto) Lymph % (Auto) Love % (Auto) Eos % (Auto) Baso % (Auto) Lymph # (Auto) Love # (Auto) Eos # (Auto) Baso # (Auto) Abs Immat Gran (auto) Absolute Neuts (auto) Absolute Nucleated RBC Nucleated RBC % (auto) Anion Gap Estim Creat Clear Calc Estimated GFR Random Glucose Calcium Total Bilirubin Direct Bilirubin AST ALT Alkaline Phosphatase Troponin I High Sens Total Protein Albumin Lipase Influenza Type A (PCR) NEGATIVE Influenza Type B (PCR) NEGATIVE RSV RNA Qual (PCR) NEGATIVE SARS-CoV-2 RNA (RT-PCR) NEGATIVE Imaging Radiologist's Impressions: Impressions Chest X-Ray 08/02/22 12:30 IMPRESSION: Patchy atelectasis or infiltrate left lung base. There is no acute intracranial process seen. There is age appropriate volume loss with chronic small vessel ischemic changes. Head CT 08/02/22 12:35 IMPRESSION: Patchy atelectasis or infiltrate left lung base. There is no acute intracranial process seen. There is age appropriate volume loss with chronic small vessel ischemic changes. Assessment and Plan (1) Pneumonia: Status: Acute Plan this is a 77-year-old Welsh-speaking male with history of diabetes noncompliant with medication who was brought to the emergency department by family after being found to be weak and confused acute toxic metabolic encephalopathy likely secondary to pneumonia brain CT negative, no acute neurological deficits UA negative community-acquired pneumonia PSI class IV no evidence of sepsis continue IV ceftriaxone, azithromycin check respiratory pathogen panel symptomatic support not currently requiring supplemental oxygen diabetes Not compliant with checking blood sugar or taking medications SSI, POCs, ADA diet elevated blood pressure readings no known diagnosis of HTN will treat with prn hydralazine, if persistently elevated will start po meds 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 Jacobs given pneumonia with associated encephalopathy patient will likely require 2 midnight stay in the hospital for management including IV antibiotics. Time Spent With Patient Time: Total time managing care of this patient today ____ minutes. Quality Stroke Does the patient have a stroke diagnosis?: No VTE Prior VTE?: No VTE Risk Level:: Medical - moderate - high VTE Device Contraindication: N/A - Device Ordered VTE Drug Contraindication: N/A - Med Ordered
[2022-08-02 14:53] LABS: Appearance Urine Clear; Color Urine Yellow; Glucose Urine UA 250 mg/dL (Negative); Leukocyte Esterase Urine Negative (Negative); Nitrite Urine Negative (Negative); PH 5.5 (5.0-9.0); Specific Gravity - Urine >= 1.030 (1.005-1.025); UMIC TRIGGER UACC YES; Urine Blood Trace (Negative); Urine Ketones 40 mg/dL (Negative); Urine Protein 100 (2+) mg/dL (Neg-Trace)
[2022-08-02 14:55] LABS: Bacteria Urine None Seen (None Seen); Hyaline Casts Urine 0-2 /LPF (0-2); RBC Urine 0-2 /HPF (0-2); Squamous Epithelial Cell Urine 0-2 /HPF (0-2); WBC Urine 0-5 /HPF (0-5)
[2022-08-02 15:04] LABS: Lactic Acid 1.9 mmol/L (0.5-2.0)
[2022-08-02] MEDS: Azithromycin 500 MG in 0.9 % Sodium Chloride 250 ML 125 MG IV (15:10)
[2022-08-02 15:51] LABS: Troponin-I High Sensitivity 112.5 ng/L (<3.5-35.0)
[2022-08-02 17:09] LABS: B Type Natriuretic Peptide 308 pg/mL (<100)
[2022-08-02] MEDS: 0.9 % Sodium Chloride Flush 3 ML SYRINGE IVFLUSH ×2 (17:33→22:08)
[2022-08-02] MEDS: Enoxaparin Sodium 40 MG/0.4 ML SYRINGE SUBCUT (17:33)
[2022-08-02] MEDS: Insulin Lispro 100 UNIT/ML 3 ML VIAL SUBCUT (17:36)
[2022-08-02 17:51] LABS: Glucose, Whole Blood 160 mg/dL (60-115)
[2022-08-02 20:08] LABS: Glucose, Whole Blood 110 mg/dL (60-115)
[2022-08-03 03:35] VITALS: BP 142/63; PULSE 60; RESP 18; TEMP 36.8; O2SAT 97
[2022-08-03 06:43] LABS: Hematocrit 41.3 % (42.0-52.0); Hemoglobin 13.7 g/dl (14.0-18.0); Mean Corpuscular HGB Conc 33.2 g/dl (31.0-36.0); Mean Corpuscular Hemoglobin 28.5 pg (27.0-33.0); Mean Platelet Volume 11.7 fL (9.4-12.4); Platelet Count 230 X10*3/uL (160-400); Red Cell Distribution Width 13.6 % (11.0-16.0); White Blood Count 13.1 X10*3/uL (4.8-10.8)
[2022-08-03 07:15] VITALS: BP 166/71; PULSE 51; RESP 20; TEMP 37; O2SAT 97
[2022-08-03 07:38] LABS: Anion Gap 16 (12-20); Blood Urea Nitrogen 15 mg/dL (9-16); Calcium 9.4 mg/dL (8.4-10.2); Carbon Dioxide 23 mmol/L (22-29); Chloride 107 mmol/L (96-108); Creatinine Clr Calc Pharmacy 81.4; Estimated Glomerular Filt Rate > 60; Glucose Random 111 mg/dL (60-115); Potassium 3.9 mmol/L (3.3-5.1); Sodium 142 mmol/L (135-145)
[2022-08-03 07:43] LABS: Glucose, Whole Blood 114 mg/dL (60-115)
[2022-08-03 09:14] LABS: Adenovirus PCR Not Detected (Not Detect.); Bordetella parapertussis PCR Not Detected (Not Detect.); Bordetella pertussis PCR Not Detected (Not Detect.); Chlamydia pneumoniae PCR Not Detected (Not Detect.); Coronavirus 229E PCR Not Detected (Not Detect.); Coronavirus HKU1 PCR Not Detected (Not Detect.); Coronavirus NL63 PCR Not Detected (Not Detect.); Coronavirus OC43 PCR Not Detected (Not Detect.); Human metapneumovirus PCR Not Detected (Not Detect.); Influenza A PCR Not Detected (Not Detect.); Influenza B PCR Not Detected (Not Detect.); Mycoplasma pneumoniae PCR Not Detected (Not Detect.); Parainfluenza 1 PCR Not Detected (Not Detect.); Parainfluenza 2 PCR Not Detected (Not Detect.); Parainfluenza 3 PCR Not Detected (Not Detect.); Rhino/Enterovirus PCR Not Detected (Not Detect.); SARS-CoV-2 PCR Not Detected (Not Detect.)
[2022-08-03 09:15] LABS: Parainfluenza 4 PCR Not Detected (Not Detect.); RSV PCR Not Detected (Not Detect.)
--- NOTE | 2022-08-03 10:12 | P.PNIM_ITS ---
Subjective Subjective Date of Service: 08/03/22 Interval History: Seen and examined this morning Follow-up for pneumonia, encephalopathy History obtained with the assistance of a velvet steamer. Patient reports that he slept well. He is awake alert, knows he is in [facility] for a respiratory problem denies sob, having some cough Review of Systems Review of Systems: Yes all other systems are reviewed and are negative Constitutional Constitutional: Denies chills and Denies fever(s) ENT Ears, Nose, Mouth, and Throat: Denies dizziness Cardiovascular Cardiovascular: Denies chest pain, Denies palpitations and Denies dyspnea Respiratory Respiratory: Reports cough and Denies dyspnea Gastrointestinal Gastrointestinal: Denies abdominal pain, Denies diarrhea, Denies nausea and Denies vomiting Neurologic Neurologic: Denies dizziness Endocrine Endocrine: Denies palpitations Physical Exam Vital Signs: Vital Signs: Last Vital Signs Temp 98.6 F 08/03/22 07:15 Pulse 51 08/03/22 07:15 Resp 20 08/03/22 07:15 BP 166/71 H 08/03/22 07:15 Pulse Ox 97 08/03/22 07:15 O2 Del Method 08/03/22 07:15 BMI result Body Mass Index 29.3 Const: General: cooperative, comfortable, no acute distress, alert and awake Nutritional Appearance: overweight Orientation/consciousness: oriented to person and oriented to place Resp: Effort & Inspection: normal respiratory effort and able to speak in complete sentences Auscultation: clear to auscultation bilaterally Cardio: Rate: bradycardic Heart sounds: S1 normal heart sound present and S2 normal heart sound present GI: Inspection: No distended Palpation (GI): Soft to palpation and nonte nder Neuro: General: oriented to person, oriented to place and CN's II-XI intact bilaterally Extrem: Other: able to move all 4 extremities spontaneously Objective Data Active Medications Acetaminophen (Acetaminophen 325 Mg Tablet) 650 mg PO Q6H PRN PRN Reason: Pain, Mild (Pain Scale 1-3) Albuterol Sulfate (Albuterol Sulfate (0.042%) 1.25 Mg/3 Ml Vial.Neb) 1.25 mg INHALE Q4H PRN PRN Reason: Shortness of Breath Dextrose (Dextrose 50 % 25 Gm/50 Ml Syringe) 25 gm IVPUSH Q15M PRN; Protocol PRN Reason: per Hypoglycemia Standing Ord. Docusate Sodium (Docusate Sodium 100 Mg Capsule) 100 mg PO DAILY PRN PRN Reason: Constipation Enoxaparin Sodium (Enoxaparin Sodium 40 Mg/0.4 Ml Syringe) 40 mg SUBCUT Q24H [facility] Last Admin: 08/02/22 17:33 Dose: 40 mg Documented By: CELENA Glucose (Glucose Gel 15 Gm Gel..Gram.) 15 gm PO Q15M PRN; Protocol PRN Reason: per Hypoglycemia Standing Ord. Guaifenesin (Guaifenesin 200 Mg/10 Ml 10 Ml Liquid) 10 ml PO Q6H PRN PRN Reason: Cough Hydralazine HCl (Hydralazine Hcl 20 Mg/Ml Vial) 5 mg IVPUSH Q6H PRN; Protocol PRN Reason: SBP >180 Azithromycin 500 mg/ Sodium (Chloride) 250 mls @ 125 mls/hr IV Q24H [facility]ICOLE[facility] Ceftriaxone Sodium 1 gm/ (Sodium Chloride) 50 mls @ 100 mls/hr IV Q24H [facility] Insulin Human Lispro (Insulin Lispro 100 Unit/Ml 3 Ml Vial) 0 unit SUBCUT QIDACHS [facility]; Protocol Last Admin: 08/03/22 08:06 Dose: Not Given Documented By: CELENA Non-Admin Reason: No Insulin Coverage Pharmacy Consult (Consult Rx Perform Med Rec) 1 each MISCELLANE ONCE PRN PRN Reason: Consult order Sodium Chloride (0.9 % Sodium Chloride Flush 3 Ml Syringe) 3 ml IVFLUSH QSHIFT [facility] Last Admin: 08/02/22 22:08 Dose: 3 ml Documented By: DEBBIE Labs 08/03/22 06:05 08/03/22 06:05 Labs: Laboratory Results - last 24 hr 08/02/22 08/02/22 08/02/22 11:58 11:58 11:58 MCV 85.0 MCH 27.9 MCHC 32.8 RDW 13.7 Plt Count 251 MPV 11.4 Immature Gran % (Auto) 0.3 Neut % (Auto) 79.4 H Lymph % (Auto) 13.6 L [place] % (Auto) 6.3 Eos % (Auto) 0.1 Baso % (Auto) 0.3 Lymph # (Auto) 1.5 [place] # (Auto) 0.7 Eos # (Auto) 0.0 Baso # (Auto) 0.0 Abs Immat Gran (auto) 0.03 Absolute Neuts (auto) 8.8 H Absolute Nucleated RBC 0.000 Nucleated RBC % (auto) 0.0 Anion Gap 16 Estim Creat Clear Calc 65.2 Estimated GFR > 60 POC Glucose Random Glucose 249 H Lactic Acid Calcium 9.9 D Total Bilirubin 0.9 Direct Bilirubin 0.3 AST 19 ALT 19 Alkaline Phosphatase 57 Troponin I High Sens 99.2 H B-Natriuretic Peptide Total Protein 7.4 Albumin 4.4 Lipase 42 Urine Color Urine Appearance Urine pH Ur Specific [place] Urine Protein Urine Glucose (UA) Urine Ketones Urine Blood Urine Nitrite Ur Leukocyte Esterase Urine RBC Urine WBC Ur Squamous Epith Cells Urine Bacteria Hyaline Casts Respiratory Panel [place] Adenovirus (Rapid PCR) B.pert (TEM-PCR) B.parapertussis DNA PCR C. pneumoniae DNA (PCR) Coronavirus OC43 (PCR) Coronavirus HKU1 (PCR) Coronavirus 229E (PCR) Coronavirus NL63 (PCR) Human Metapneumovir PCR Influenza A (RT-PCR) Influenza Type A (PCR) Influenza B (RT-PCR) Influenza Type B (PCR) M. pneumoniae (PCR) Parainfluenza 1 (PCR) Parainfluenza 2 (PCR) Parainfluenza 3 (PCR) Parainfluenza 4 (PCR) RSV (PCR) RSV RNA Qual (PCR) Entero/Rhino (PCR) SARS-CoV-2 RNA (RT-PCR) 08/02/22 08/02/22 08/02/22 12:48 14:25 14:25 MCV MCH MCHC RDW Plt Count MPV Immature Gran % (Auto) Neut % (Auto) Lymph % (Auto) [place] % (Auto) Eos % (Auto) Baso % (Auto) Lymph # (Auto) [place] # (Auto) Eos # (Auto) Baso # (Auto) Abs Immat Gran (auto) Absolute Neuts (auto) Absolute Nucleated RBC Nucleated RBC % (auto) Anion Gap Estim Creat Clear Calc Estimated GFR POC Glucose Random Glucose Lactic Acid 1.9 Calcium Total Bilirubin Direct Bilirubin AST ALT Alkaline Phosphatase Troponin I High Sens B-Natriuretic Peptide Total Protein Albumin Lipase Urine Color Yellow Urine Appearance Clear Urine pH 5.5 Ur Specific [place] >= 1.030 H Urine Protein 100 (2+) H Urine Glucose (UA) 250 H Urine Ketones 40 Urine Blood Trace H Urine Nitrite Negative Ur Leukocyte Esterase Negative Urine RBC 0-2 Urine WBC 0-5 Ur Squamous Epith Cells 0-2 Urine Bacteria None Seen Hyaline Casts 0-2 Respiratory Panel [place] Adenovirus (Rapid PCR) B.pert (TEM-PCR) B.parapertussis DNA PCR C. pneumoniae DNA (PCR) Coronavirus OC43 (PCR) Coronavirus HKU1 (PCR) Coronavirus 229E (PCR) Coronavirus NL63 (PCR) Human Metapneumovir PCR Influenza A (RT-PCR) Influenza Type A (PCR) NEGATIVE Influenza B (RT-PCR) Influenza Type B (PCR) NEGATIVE M. pneumoniae (PCR) Parainfluenza 1 (PCR) Parainfluenza 2 (PCR) Parainfluenza 3 (PCR) Parainfluenza 4 (PCR) RSV (PCR) RSV RNA Qual (PCR) NEGATIVE Entero/Rhino (PCR) SARS-CoV-2 RNA (RT-PCR) NEGATIVE 08/02/22 08/02/22 08/02/22 15:19 15:19 17:10 MCV MCH MCHC RDW Plt Count MPV Immature Gran % (Auto) Neut % (Auto) Lymph % (Auto) [place] % (Auto) Eos % (Auto) Baso % (Auto) Lymph # (Auto) [place] # (Auto) Eos # (Auto) Baso # (Auto) Abs Immat Gran (auto) Absolute Neuts (auto) Absolute Nucleated RBC Nucleated RBC % (auto) Anion Gap Estim Creat Clear Calc Estimated GFR POC Glucose Random Glucose Lactic Acid Calcium Total Bilirubin Direct Bilirubin AST ALT Alkaline Phosphatase Troponin I High Sens 112.5 H* B-Natriuretic Peptide 308 H Total Protein Albumin Lipase Urine Color Urine Appearance Urine pH Ur Specific [place] Urine Protein Urine Glucose (UA) Urine Ketones Urine Blood Urine Nitrite Ur Leukocyte Esterase Urine RBC Urine WBC Ur Squamous Epith Cells Urine Bacteria Hyaline Casts Respiratory Panel [place] See Note Adenovirus (Rapid PCR) Not Detected B.pert (TEM-PCR) Not Detected B.parapertussis DNA PCR Not Detected C. pneumoniae DNA (PCR) Not Detected Coronavirus OC43 (PCR) Not Detected Coronavirus HKU1 (PCR) Not Detected Coronavirus 229E (PCR) Not Detected Coronavirus NL63 (PCR) Not Detected Human Metapneumovir PCR Not Detected Influenza A (RT-PCR) Not Detected Influenza Type A (PCR) Influenza B (RT-PCR) Not Detected Influenza Type B (PCR) M. pneumoniae (PCR) Not Detected Parainfluenza 1 (PCR) Not Detected Parainfluenza 2 (PCR) Not Detected Parainfluenza 3 (PCR) Not Detected Parainfluenza 4 (PCR) Not Detected RSV (PCR) Not Detected RSV RNA Qual (PCR) Entero/Rhino (PCR) Not Detected SARS-CoV-2 RNA (RT-PCR) Not Detected 08/02/22 08/02/22 08/03/22 17:35 19:58 06:05 MCV 86.0 MCH 28.5 MCHC 33.2 RDW 13.6 Plt Count 230 MPV 11.7 Immature Gran % (Auto) Neut % (Auto) Lymph % (Auto) [place] % (Auto) Eos % (Auto) Baso % (Auto) Lymph # (Auto) [place] # (Auto) Eos # (Auto) Baso # (Auto) Abs Immat Gran (auto) Absolute Neuts (auto) Absolute Nucleated RBC 0.000 Nucleated RBC % (auto) 0.0 Anion Gap Estim Creat Clear Calc Estimated GFR POC Glucose 160 H 110 Random Glucose Lactic Acid Calcium Total Bilirubin Direct Bilirubin AST ALT Alkaline Phosphatase Troponin I High Sens B-Natriuretic Peptide Total Protein Albumin Lipase Urine Color Urine Appearance Urine pH Ur Specific [place] Urine Protein Urine Glucose (UA) Urine Ketones Urine Blood Urine Nitrite Ur Leukocyte Esterase Urine RBC Urine WBC Ur Squamous Epith Cells Urine Bacteria Hyaline Casts Respiratory Panel [place] Adenovirus (Rapid PCR) B.pert (TEM-PCR) B.parapertussis DNA PCR C. pneumoniae DNA (PCR) Coronavirus OC43 (PCR) Coronavirus HKU1 (PCR) Coronavirus 229E (PCR) Coronavirus NL63 (PCR) Human Metapneumovir PCR Influenza A (RT-PCR) Influenza Type A (PCR) Influenza B (RT-PCR) Influenza Type B (PCR) M. pneumoniae (PCR) Parainfluenza 1 (PCR) Parainfluenza 2 (PCR) Parainfluenza 3 (PCR) Parainfluenza 4 (PCR) RSV (PCR) RSV RNA Qual (PCR) Entero/Rhino (PCR) SARS-CoV-2 RNA (RT-PCR) 08/03/22 08/03/22 06:05 07:18 MCV MCH MCHC RDW Plt Count MPV Immature Gran % (Auto) Neut % (Auto) Lymph % (Auto) [place] % (Auto) Eos % (Auto) Baso % (Auto) Lymph # (Auto) [place] # (Auto) Eos # (Auto) Baso # (Auto) Abs Immat Gran (auto) Absolute Neuts (auto) Absolute Nucleated RBC Nucleated RBC % (auto) Anion Gap 16 Estim Creat Clear Calc 81.4 Estimated GFR > 60 POC Glucose 114 Random Glucose 111 Lactic Acid Calcium 9.4 Total Bilirubin Direct Bilirubin AST ALT Alkaline Phosphatase Troponin I High Sens B-Natriuretic Peptide Total Protein Albumin Lipase Urine Color Urine Appearance Urine pH Ur Specific [place] Urine Protein Urine Glucose (UA) Urine Ketones Urine Blood Urine Nitrite Ur Leukocyte Esterase Urine RBC Urine WBC Ur Squamous Epith Cells Urine Bacteria Hyaline Casts Respiratory Panel [place] Adenovirus (Rapid PCR) B.pert (TEM-PCR) B.parapertussis DNA PCR C. pneumoniae DNA (PCR) Coronavirus OC43 (PCR) Coronavirus HKU1 (PCR) Coronavirus 229E (PCR) Coronavirus NL63 (PCR) Human Metapneumovir PCR Influenza A (RT-PCR) Influenza Type A (PCR) Influenza B (RT-PCR) Influenza Type B (PCR) M. pneumoniae (PCR) Parainfluenza 1 (PCR) Parainfluenza 2 (PCR) Parainfluenza 3 (PCR) Parainfluenza 4 (PCR) RSV (PCR) RSV RNA Qual (PCR) Entero/Rhino (PCR) SARS-CoV-2 RNA (RT-PCR) Assessment and Plan (1) Encephalopathy: Status: Acute (2) Pneumonia: Status: Acute Plan this is a 77-year-old Kinyarwanda-speaking male with history of diabetes noncompliant with medication who was brought to the emergency department by family after being found to be weak and confused acute toxic metabolic encephalopathy. improving likely secondary to pneumonia brain CT negative, no acute neurological deficits UA negative community-acquired pneumonia PSI class IV. 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 Olivas requires ongoing inpatient hospitalization for management of pneumonia, encephalopathy Time Spent With Patient Time: Total time managing care of this patient today ____ minutes. Quality Stroke Does the patient have a stroke diagnosis?: No VTE Prior VTE?: No VTE Risk Level:: Medical - moderate - high VTE Device Contraindication: N/A - Device Ordered VTE Drug Contraindication: N/A - Med Ordered
[2022-08-03] MEDS: 0.9 % Sodium Chloride Flush 3 ML SYRINGE IVFLUSH ×3 (10:22→21:31)
[2022-08-03 11:11] VITALS: BP 173/74; PULSE 61; RESP 20; TEMP 37.1; O2SAT 95
[2022-08-03 11:36] LABS: Glucose, Whole Blood 116 mg/dL (60-115)
[2022-08-03] MEDS: amLODIPine Besylate 5 MG TABLET PO (11:38)
[2022-08-03] MEDS: cefTRIAXone sodium 1 GM in 0.9 % Sodium Chloride 50 ML IV (13:53)
--- NOTE | 2022-08-03 14:21 | MHC.CM.PN ---
M SPOKE WITH PTS STEP-SON/PRIMARY CONTACT, PUNEET SIMS [phone] HE REPORTS THE PT LIVES ALONE BUT HE GOES TO HIS HOME TO CHECK ON HIM DAILY HE REPORTS THE PT HAS NO FORMAL SERVICES PT USES A WALKER TO AMBULATE PT HAS NO PCP AND NO HCP HE DECLINED TO COMPLETE ONE EARLIER TODAY PT IS COVID VACCINATED IMM DELIVERED, COPY AT BEDSIDE PER DISCUSSION CURRENT DC PLAN IS HOME WITH RESUMPTION OF FAMILY SUPPORT FAMILY TO TRANSPORT
[2022-08-03] MEDS: Enoxaparin Sodium 40 MG/0.4 ML SYRINGE SUBCUT (14:50)
[2022-08-03] MEDS: Azithromycin 500 MG in 0.9 % Sodium Chloride 250 ML 125 MG IV (14:50)
[2022-08-03 15:40] VITALS: BP 128/61; PULSE 79; RESP 19; TEMP 37.1; O2SAT 95
[2022-08-03 15:47] LABS: Glucose, Whole Blood 205 mg/dL (60-115)
[2022-08-03] MEDS: Insulin Lispro 100 UNIT/ML 3 ML VIAL SUBCUT (16:53)
[2022-08-03 19:25] VITALS: BP 158/72; PULSE 59; RESP 18; TEMP 37.1; O2SAT 97
[2022-08-03 20:05] LABS: Glucose, Whole Blood 113 mg/dL (60-115)
[2022-08-03 23:10] VITALS: BP 160/70; PULSE 49; RESP 18; TEMP 36.4; O2SAT 96
[2022-08-04] VITALS (8 sets, daily range): BP systolic 136–192; BP diastolic 60–80; PULSE 41–73; RESP 18–20; TEMP 36–36.8; O2SAT 96–97
[2022-08-04 07:16] LABS: Glucose, Whole Blood 116 mg/dL (60-115)
[2022-08-04] MEDS: amLODIPine Besylate 5 MG TABLET PO (08:15)
[2022-08-04] MEDS: 0.9 % Sodium Chloride Flush 3 ML SYRINGE IVFLUSH ×3 (08:19→20:20)
--- NOTE | 2022-08-04 11:04 | MHC.CM.PN ---
per rounds pt is not resdy for dc cm will contiunue to follow dc plan remains dc home with family support
[2022-08-04 11:06] LABS: Glucose, Whole Blood 168 mg/dL (60-115)
--- NOTE | 2022-08-04 11:06 | PM.CNCAR ---
History of Present Illness History of Present Illness Date of Service: 08/04/22 Requesting physician: Krystle Bosch Consult reason: other ( advanced AV block) Chief complaint: Pneumonia, encephalopathy Narrative: I was consulted to see Domenico in cardiology consultation today for noted advanced AV block on the corporate ethics officer. History was obtained with help of research scientist at bedside and despite the research scientist patient is a poor historian. Patient with prior history of what appears to be dementia and admitted with encephalopathy and pneumonia. On admission EKGs consistent with normal sinus rhythm with Mobitz type 1 second-degree AV block. Patient while being monitored noted to have bradycardia and often heart rate going into the upper 20s. Patient says he feels weak and lightheaded. However this is very nonspecific. Currently his heart rate is adequate and continues to have some lightheadedness. There is no clear history of syncope patient does not recall. He is somewhat confused. Patient noted to have sinus rhythm with AV dissociation consistent with advanced AV block. Intermittent episodes of Mobitz type 1 second-degree AV block noted. Also blocked PACs noted. Review of Systems Review of Systems: Yes Unobtainable due to mental status PMF Past Medical History Medical History (Updated 08/04/22 @ 11:09 by Ronak Welch MD) Diabetes [facility] Social History Social History (Updated 08/02/22 @ 14:54 by VENU Denney) Household Members: None Housing: Apartment Alcohol intake: unknown Patient Tobacco Use Status: Never used Tobacco Smoked in Last 30 Days: No Patient Interested in Nicotine Replacement: No Patient Given Instructions on How to Stop Smoking: No Second Hand Smoke Exposure: No Use of substances other than those prescribed or required for medical reasons: No Substance Use Type: Unknown Currently Displaying Signs/Symptoms of Drug Intoxication Withdrawal: No Any prior treatment program specific to substance use: No Have you been hit, kicked, punched, or otherwise hurt by someone within the past year? If so, by whom?: No Do you feel safe in your current relationship?: No Current Relationship Is there a partner from a previous relationship who is making you feel unsafe now?: No Are you made to feel afraid or neglected: No Advance Directives: No Do you have thoughts of harming others: None Do you have a plan to hurt others: No Plan Recently lost weight without trying: Yes How much weight loss: Unsure Eating poorly because of decreased appetite: No Nutrition screen score: 4 Nutrition Risks: No Nutritional Risk Poor oral hygiene: Yes service: No Current occupational status: disabled Meds Allergies Allergy/AdvReac Type Severity Reaction Status Date / Time No Known Allergies Allergy Verified 08/05/20 11:46 Active Medications: Current Medications Acetaminophen (Acetaminophen 325 Mg Tablet) 650 mg PO Q6H PRN PRN Reason: Pain, Mild (Pain Scale 1-3) Albuterol Sulfate (Albuterol Sulfate (0.042%) 1.25 Mg/3 Ml Vial.Neb) 1.25 mg INHALE Q4H PRN PRN Reason: Shortness of Breath Amlodipine Besylate (Amlodipine Besylate 5 Mg Tablet) 5 mg PO DAILY [facility]; Protocol Last Admin: 08/04/22 08:15 Dose: 5 mg Dextrose (Dextrose 50 % 25 Gm/50 Ml Syringe) 25 gm IVPUSH Q15M PRN; Protocol PRN Reason: per Hypoglycemia Standing Ord. Docusate Sodium (Docusate Sodium 100 Mg Capsule) 100 mg PO DAILY PRN PRN Reason: Constipation Enoxaparin Sodium (Enoxaparin Sodium 40 Mg/0.4 Ml Syringe) 40 mg SUBCUT Q24H [facility] Last Admin: 08/03/22 14:50 Dose: 40 mg Glucose (Glucose Gel 15 Gm Gel..Gram.) 15 gm PO Q15M PRN; Protocol PRN Reason: per Hypoglycemia Standing Ord. Guaifenesin (Guaifenesin 200 Mg/10 Ml 10 Ml Liquid) 10 ml PO Q6H PRN PRN Reason: Cough Hydralazine HCl (Hydralazine Hcl 20 Mg/Ml Vial) 5 mg IVPUSH Q6H PRN; Protocol PRN Reason: SBP >180 Azithromycin 500 mg/ Sodium (Chloride) 250 mls @ 125 mls/hr IV Q24H [facility] Last Infusion: 08/03/22 16:53 Dose: Infused Ceftriaxone Sodium 1 gm/ (Sodium Chloride) 50 mls @ 100 mls/hr IV Q24H [facility] Last Infusion: 08/03/22 14:53 Dose: Infused Insulin Human Lispro (Insulin Lispro 100 Unit/Ml 3 Ml Vial) 0 unit SUBCUT QIDACHS [facility]; Protocol Last Admin: 08/04/22 07:31 Dose: Not Given Pharmacy Consult (Consult Rx Perform Med Rec) 1 each MISCELLANE ONCE PRN PRN Reason: Consult order Sodium Chloride (0.9 % Sodium Chloride Flush 3 Ml Syringe) 3 ml IVFLUSH QSHIFT [facility] Last Admin: 08/04/22 08:19 Dose: 3 ml Home Medications Medication Instructions Recorded Confirmed Last Taken Type acetaminophen 325 mg tablet 650 mg PO Q6H PRN Pain 08/02/22 08/02/22 Unknown History (Tylenol) Physical Exam Vital Signs: Vital Signs: Last Vital Signs Temp 98 F 08/04/22 07:47 Pulse 72 08/04/22 07:47 Resp 18 08/04/22 07:47 BP 148/60 H 08/04/22 07:45 Pulse Ox 97 08/04/22 07:45 O2 Del Method 08/04/22 07:45 BMI result Body Mass Index 29.3 Const: General: cooperative, comfortable, no acute distress, alert and awake Nutritional Appearance: average body habitus Orientation/consciousness: oriented to place HEENT: Head: Yes normocephalic and Yes atraumatic Neck: Neck: Yes trachea midline, Yes supple and Yes no JVD Resp: Effort & Inspection: normal respiratory effort Auscultation: clear to auscultation bilaterally Cardio: Jugular venous distension: no JVD Palpation: normal PMI Rate: regular rate Rhythm: abnormal rhythm regularly irregular Heart sounds: S1 normal heart sound present, S2 normal heart sound present, no click, no gallops, no murmurs and no rubs GI: Auscultation: normal bowel sounds Skin: General skin exam: no rashes or lesions noted Neuro: General: oriented to place and no focal motor deficits Extrem: General: Yes no clubbing, cyanosis or edema Objective Labs and Meds 08/03/22 06:05 08/03/22 06:05 Lab results: Laboratory Results - last 24 hr 08/03/22 08/03/22 08/03/22 11:14 15:41 19:21 POC Glucose 116 H 205 H 113 08/04/22 08/04/22 07:12 11:03 POC Glucose 116 H 168 H Assessment and Plan (1) Complete heart block: Status: Acute patient noted her complete heart block on the monitor with evidence of Mobitz type 1 second-degree AV block with low heart rate. No obvious symptoms related to it, very difficult to assess patient's symptoms due to his cognitive dysfunction. However given his advanced AV block requires pacemaker placement. This was discussed with him. Also discussed the procedure with him. Not sure if he understood completely. However he said he is agreeable. Will need to discuss this with his family regarding pacemaker placement. They are agreeable she has consult thoracic surgery for placement of dual-chamber pacemaker. Risks, benefits and possible complications were discussed. Will continue to follow with you Time Spent With Patient Time: Total time managing care of this patient today ____ minutes. Procedures Date of Service Date of Service: 08/04/22
--- NOTE | 2022-08-04 12:00 | P.PNIM_ITS ---
Subjective Subjective Date of Service: 08/04/22 Interval History: Seen and examined this morning Follow-up for pneumonia, encephalopathy denies sob, having some cough Review of Systems Review of Systems: Yes all other systems are reviewed and are negative Constitutional Constitutional: Denies chills and Denies fever(s) ENT Ears, Nose, Mouth, and Throat: Denies dizziness Cardiovascular Cardiovascular: Denies chest pain, Denies palpitations and Denies dyspnea Respiratory Respiratory: Reports cough and Denies dyspnea Gastrointestinal Gastrointestinal: Denies abdominal pain, Denies diarrhea, Denies nausea and Denies vomiting Neurologic Neurologic: Denies dizziness Endocrine Endocrine: Denies palpitations Physical Exam Vital Signs: Vital Signs: Last Vital Signs Temp 98.2 F 08/04/22 11:10 Pulse 70 08/04/22 11:10 Resp 20 08/04/22 11:10 BP 156/70 H 08/04/22 11:10 Pulse Ox 97 08/04/22 11:10 O2 Del Method 08/04/22 11:10 BMI result Body Mass Index 29.3 Appearing in no acute distress LSCTA heart regular rate rhythm, clear S1, S2 positive bowel sounds, abdomen is soft, nontender neuro patient is alert, intermittent confusion Objective Data Active Medications Acetaminophen (Acetaminophen 325 Mg Tablet) 650 mg PO Q6H PRN PRN Reason: Pain, Mild (Pain Scale 1-3) Albuterol Sulfate (Albuterol Sulfate (0.042%) 1.25 Mg/3 Ml Vial.Neb) 1.25 mg INHALE Q4H PRN PRN Reason: Shortness of Breath Amlodipine Besylate (Amlodipine Besylate 5 Mg Tablet) 5 mg PO DAILY NICOLETTE; Pro tocol Last Admin: 08/04/22 08:15 Dose: 5 mg Documented By: DESMOND Dextrose (Dextrose 50 % 25 Gm/50 Ml Syringe) 25 gm IVPUSH Q15M PRN; Protocol PRN Reason: per Hypoglycemia Standing Ord. Docusate Sodium (Docusate Sodium 100 Mg Capsule) 100 mg PO DAILY PRN PRN Reason: Constipation Enoxaparin Sodium (Enoxaparin Sodium 40 Mg/0.4 Ml Syringe) 40 mg SUBCUT Q24H NICOLETTE Last Admin: 08/03/22 14:50 Dose: 40 mg Documented By: RIOSCEL Glucose (Glucose Gel 15 Gm Gel..Gram.) 15 gm PO Q15M PRN; Protocol PRN Reason: per Hypoglycemia Standing Ord. Guaifenesin (Guaifenesin 200 Mg/10 Ml 10 Ml Liquid) 10 ml PO Q6H PRN PRN Reason: Cough Hydralazine HCl (Hydralazine Hcl 20 Mg/Ml Vial) 5 mg IVPUSH Q6H PRN; Protocol PRN Reason: SBP >180 Azithromycin 500 mg/ Sodium (Chloride) 250 mls @ 125 mls/hr IV Q24H [facility] Last Infusion: 08/03/22 16:53 Dose: 0 mls/hr Documented By: CELENA Ceftriaxone Sodium 1 gm/ (Sodium Chloride) 50 mls @ 100 mls/hr IV Q24H [facility] Last Infusion: 08/03/22 14:53 Dose: 0 mls/hr Documented By: CELENA Insulin Human Lispro (Insulin Lispro 100 Unit/Ml 3 Ml Vial) 0 unit SUBCUT QIDACHS [facility]; Protocol Last Admin: 08/04/22 07:31 Dose: Not Given Documented By: DESMOND Non-Admin Reason: No Insulin Coverage Pharmacy Consult (Consult Rx Perform Med Rec) 1 each MISCELLANE ONCE PRN PRN Reason: Consult order Sodium Chloride (0.9 % Sodium Chloride Flush 3 Ml Syringe) 3 ml IVFLUSH QSHIFT [facility] Last Admin: 08/04/22 08:19 Dose: 3 ml Documented By: DESMOND Labs 08/03/22 06:05 08/03/22 06:05 Labs: Laboratory Results - last 24 hr 08/03/22 08/03/22 08/04/22 15:41 19:21 07:12 POC Glucose 205 H 113 116 H 08/04/22 11:03 POC Glucose 168 H Microbiology Microbiology Results: Microbiology 08/02/22 14:25 Blood Culture - Preliminary Blood - Venous No growth after 24 hours. 08/02/22 14:25 Blood Culture - Preliminary Blood - Venous No growth after 24 hours. Assessment and Plan (1) Encephalopathy: Status: Acute (2) Pneumonia: Status: Acute Plan 77-year-old Macedonian-speaking male with history of diabetes noncompliant with medication who was brought to the emergency department by family after being found to be weak and confused Intermittent bradycardia down as low as 25 pt has known h/o Wenckebach Discussed with cardiology, needs dual chamber pacer CT surgery consult pending acute toxic metabolic encephalopathy. improving likely secondary to pneumonia brain CT negative, no acute neurological deficits UA negative community-acquired pneumonia PSI class IV. no evidence of sepsis continue IV ceftriaxone, azithromycin d#2 RPP negative symptomatic support currently on room air diabetes Not compliant with checking blood sugar or taking medications SSI, POCs, ADA diet elevated blood pressure readings no known diagnosis of HTN will start norvasc monitor blood pressure closely elevated trop HsTrop flat no chest pain probable demand related generalized weakness r/t acute illness PT eval for safe dispo dvt ppx lovenox code status - full code HCP - step son Angel Bernal - [phone] Attending - dr. Gallagher requires ongoing inpatient hospitalization for management of pneumonia, encephalopathy Time Spent With Patient Time: Total time managing care of this patient today ____ minutes. Quality Stroke Does the patient have a stroke diagnosis?: No VTE Prior VTE?: No VTE Risk Level:: Medical - moderate - high VTE Device Contraindication: N/A - Device Ordered VTE Drug Contraindication: N/A - Med Ordered
[2022-08-04] MEDS: Insulin Lispro 100 UNIT/ML 3 ML VIAL SUBCUT ×2 (12:03→20:20)
--- NOTE | 2022-08-04 12:50 | P.EN_ITS ---
Event Note Date of Service: 08/04/22 Event Note: THORACIC SURGERY PRE-OP NOTE Patient scheduled for dual chamber pacemaker insertion ([employer]) tomorrow with Dr. Mcgee @ 3:30pm. * T&S - ordered for tomorrow morning * NPO except medications after MN * Labs Laboratory Tests 08/03/22 06:05 WBC 13.1 H Hgb 13.7 L Hct 41.3 L Plt Count 230 Laboratory Tests 08/03/22 06:05 Sodium 142 Potassium 3.9 Chloride 107 Carbon Dioxide 23 BUN 15 Creatinine 0.87 * Coags - ordered for tomorrow morning * Abx - patient on Ceftriaxone q24h and Azithromycin q24h * HCP? - step son Angel Bernal - [phone]. Will need to reach out for consent.
--- NOTE | 2022-08-04 12:50 | PM.EVENT ---
Event Note Date of Service: 08/04/22 Event Note: THORACIC SURGERY PRE-OP NOTE Patient scheduled for dual chamber pacemaker insertion ([employer] [facility]) tomorrow with Dr. Mcgee @ 3:30pm. T&S - ordered for tomorrow morning NPO except medications after MN Labs Laboratory Tests 08/03/22 06:05 WBC 13.1 H Hgb 13.7 L Hct 41.3 L Plt Count 230 Laboratory Tests 08/03/22 06:05 Sodium 142 Potassium 3.9 Chloride 107 Carbon Dioxide 23 BUN 15 Creatinine 0.87 Coags - ordered for tomorrow morning Abx - patient on Ceftriaxone q24h and Azithromycin q24h HCP? - step son Angel Bernal - [phone]. Will need to reach out for consent.
[2022-08-04] MEDS: cefTRIAXone sodium 1 GM in 0.9 % Sodium Chloride 50 ML IV (14:01)
[2022-08-04 15:34] LABS: Glucose, Whole Blood 150 mg/dL (60-115)
[2022-08-04] MEDS: Azithromycin 500 MG in 0.9 % Sodium Chloride 250 ML 125 MG IV (16:27)
[2022-08-04] MEDS: Enoxaparin Sodium 40 MG/0.4 ML SYRINGE SUBCUT (16:28)
[2022-08-04 19:35] LABS: Glucose, Whole Blood 215 mg/dL (60-115)
[2022-08-04] MEDS: Acetaminophen 325 MG TABLET 650 MG PO (20:19)
[2022-08-05] VITALS (10 sets, daily range): BP systolic 128–174; BP diastolic 54–71; PULSE 42–86; RESP 12–19; TEMP 36.2–36.6; O2SAT 97–100
[2022-08-05 06:50] LABS: INTERNATIONAL NORM RATIO 1.1 (0.9-1.1)
[2022-08-05 06:53] LABS: Partial Thromboplastin Time 33.7 SEC (26.0-36.4)
[2022-08-05 07:41] LABS: Glucose, Whole Blood 112 mg/dL (60-115)
[2022-08-05] MEDS: amLODIPine Besylate 5 MG TABLET PO (08:19)
[2022-08-05] MEDS: 0.9 % Sodium Chloride Flush 3 ML SYRINGE IVFLUSH ×2 (08:19→20:34)
--- NOTE | 2022-08-05 09:50 | HO.PM.IMPN ---
Subjective Subjective Date of Service: 08/05/22 Interval History: Seen and examined this morning Follow-up for pneumonia, encephalopathy denies sob, having some cough Review of Systems Review of Systems: Yes all other systems are reviewed and are negative Constitutional Constitutional: Denies chills and Denies fever(s) ENT Ears, Nose, Mouth, and Throat: Denies dizziness Cardiovascular Cardiovascular: Denies chest pain, Denies palpitations and Denies dyspnea Respiratory Respiratory: Reports cough and Denies dyspnea Gastrointestinal Gastrointestinal: Denies abdominal pain, Denies diarrhea, Denies nausea and Denies vomiting Neurologic Neurologic: Denies dizziness Endocrine Endocrine: Denies palpitations Physical Exam Vital Signs: Vital Signs: Last Vital Signs Temp 97.9 F 08/05/22 07:28 Pulse 54 08/05/22 07:28 Resp 12 08/05/22 07:28 BP 150/58 H 08/05/22 07:28 Pulse Ox 98 08/05/22 07:28 O2 Del Method 08/05/22 07:28 BMI result Body Mass Index 29.3 Appearing in no acute distress lung sounds are clear to auscultation heart regular rate rhythm, clear S1, S2 positive bowel sounds, abdomen is soft, nontender neuro patient is alert x3, no focal deficits Objective Data Active Medications Acetaminophen (Acetaminophen 325 Mg Tablet) 650 mg PO Q6H PRN PRN Reason: Pain, Mild (Pain Scale 1-3) Last Admin: 08/04/22 20:19 Dose: 650 mg Documented By: SHANNAN Albuterol Sulfate (Albuterol Sulfate (0.042%) 1.25 Mg/3 Ml Vial.Neb) 1.25 mg INHALE Q4H PRN PRN Reason: Shortness of Breath Amlodipine Besylate (Amlodipine Besylate 5 Mg Tablet) 5 mg PO DAILY [facility]; Protocol Last Admin: 08/05/22 08:19 Dose: 5 mg Documented By: DESMOND Atropine Sulfate (Atropine Sulfate 1 Mg/Ml Vial) 0.5 mg IVPUSH Q5M PRN PRN Reason: bradycardia Dextrose (Dextrose 50 % 25 Gm/50 Ml Syringe) 25 gm IVPUSH Q15M PRN; Protocol PRN Reason: per Hypoglycemia Standing Ord. Docusate Sodium (Docusate Sodium 100 Mg Capsule) 100 mg PO DAILY PRN PRN Reason: Constipation Enoxaparin Sodium (Enoxaparin Sodium 40 Mg/0.4 Ml Syringe) 40 mg SUBCUT Q24H [facility] Last Admin: 08/04/22 16:28 Dose: 40 mg Documented By: DESMOND Glucose (Glucose Gel 15 Gm Gel..Gram.) 15 gm PO Q15M PRN; Protocol PRN Reason: per Hypoglycemia Standing Ord. Guaifenesin (Guaifenesin 200 Mg/10 Ml 10 Ml Liquid) 10 ml PO Q6H PRN PRN Reason: Cough Hydralazine HCl (Hydralazine Hcl 20 Mg/Ml Vial) 5 mg IVPUSH Q6H PRN; Protocol PRN Reason: SBP >180 Azithromycin 500 mg/ Sodium (Chloride) 250 mls @ 125 mls/hr IV Q24H [facility] Last Infusion: 08/04/22 19:29 Dose: 0 mls/hr Documented By: SHANNAN Ceftriaxone Sodium 1 gm/ (Sodium Chloride) 50 mls @ 100 mls/hr IV Q24H [facility] Last Infusion: 08/04/22 14:42 Dose: 0 mls/hr Documented By: LUAN Insulin Human Lispro (Insulin Lispro 100 Unit/Ml 3 Ml Vial) 0 unit SUBCUT QIDACHS [facility]; Protocol Last Admin: 08/05/22 07:48 Dose: Not Given Documented By: LUAN Non-Admin Reason: No Insulin Coverage Pharmacy Consult (Consult Rx Perform Med Rec) 1 each MISCELLANE ONCE PRN PRN Reason: Consult order Sodium Chloride (0.9 % Sodium Chloride Flush 3 Ml Syringe) 3 ml IVFLUSH QSHIFT [facility] Last Admin: 08/05/22 08:19 Dose: 3 ml Documented By: DESMOND Labs 08/03/22 06:05 08/03/22 06:05 Labs: Laboratory Results - last 24 hr 08/04/22 08/04/22 08/04/22 11:03 15:31 19:27 PT INR APTT POC Glucose 168 H 150 H 215 H Blood Type Antibody Screen 08/05/22 08/05/22 08/05/22 05:48 05:48 07:27 PT 13.0 INR 1.1 APTT 33.7 POC Glucose 112 Blood Type O Positive Antibody Screen NEGATIVE Microbiology Microbiology Results: Microbiology 08/02/22 14:25 Blood Culture - Preliminary Blood - Venous No growth after 48 hours. 08/02/22 14:25 Blood Culture - Preliminary Blood - Venous No growth after 48 hours. Assessment and Plan (1) Encephalopathy: Status: Acute (2) Pneumonia: Status: Acute Plan 77-year-old Zimbabwean-speaking male with history of diabetes noncompliant with medication who was brought to the emergency department by family after being found to be weak and confused Intermittent bradycardia down as low as 25 pt has known h/o Wenckebach Plan for dual chamber pacer today acute toxic metabolic encephalopathy. improving likely secondary to pneumonia brain CT negative, no acute neurological deficits UA negative community-acquired pneumonia PSI class IV. no evidence of sepsis continue IV ceftriaxone, azithromycin RPP negative symptomatic support currently on room air diabetes Not compliant with checking blood sugar or taking medications SSI, POCs, ADA diet elevated blood pressure readings no known diagnosis of HTN continue norvasc monitor blood pressure closely elevated trop HsTrop flat no chest pain probable demand related generalized weakness r/t acute illness PT eval for safe dispo dvt ppx lovenox code status - full code HCP - step son Angle Bernal - [phone] Attending - dr. Gallagher requires ongoing inpatient hospitalization for management of pneumonia, encephalopathy Time Spent With Patient Time: Total time managing care of this patient today ____ minutes. Quality Stroke Does the patient have a stroke diagnosis?: No VTE Prior VTE?: No VTE Risk Level:: Medical - moderate - high VTE Device Contraindication: N/A - Device Ordered VTE Drug Contraindication: N/A - Med Ordered
[2022-08-05 11:05] LABS: Glucose, Whole Blood 118 mg/dL (60-115)
--- NOTE | 2022-08-05 11:26 | PM.PNCARD ---
Subjective Subjective Date of Service: 08/05/22 <TAI Vanegas - Last Filed: 08/05/22 11:40> 08/05/22 <Ronak Welch MD - Last Filed: 08/05/22 13:33> Principal diagnosis: Advanced degree heart block <TAI Vanegas - Last Filed: 08/05/22 11:40> Interval history: Pt seen at 1115. Sitting in recliner, nonverbal to my questions. Family members in room and report that he does say crazy things at times. Not at his usual baseline. No indication of pain or respiratory difficulty. Recieving IV AB for the tx of PNA. Tele monitor showing SB, SR with episodes of second degree heart block type 1, rates averaging 40-60s. NPO at present for PPM placement later today. <TAI Vanegas - Last Filed: 08/05/22 11:40> Review of Systems Review of Systems as above <TAI Vanegas - Last Filed: 08/05/22 11:40> Yes all other systems are reviewed and are negative <TAI Vanegas - Last Filed: 08/05/22 11:40> Physical Exam Vital Signs: Last Vital Signs Temp 97.3 F 08/05/22 11:00 Pulse 68 08/05/22 11:00 Resp 14 08/05/22 11:00 BP 143/67 H 08/05/22 11:00 Pulse Ox 98 08/05/22 11:00 O2 Del Method 08/05/22 11:00 BMI result Body Mass Index 29.3 <TAI Vanegas - Last Filed: 08/05/22 11:40> Const General: cooperative, healthy appearing, no acute distress, alert and awake <TAI Vanegas - Last Filed: 08/05/22 11:40> Eyes Conjunctivae: conjunctivae normal <TAI Vanegas Last Filed: 08/05/22 11:40> Neck Neck: Yes normal visual inspection and Yes no JVD <TAI Vanegas - Last Filed: 08/05/22 11:40> Carotids: carotid upstroke abnormal <TAI Vanegas - Last Filed: 08/05/22 11:40> Resp Effort & Inspection: normal respiratory effort, able to speak in complete sentences and not labored <ISAEL VanegasC - Last Filed: 08/05/22 11:40> Auscultation: clear to auscultation bilaterally, no rales, no rhonchi and no wheezes <Ana Maria Antunez ISAELC - Last Filed: 08/05/22 11:40> Cardio Rate: regular rate <ISAEL VanegasC - Last Filed: 08/05/22 11:40> Rhythm: regular rhythm <Ana Maria Antunez NP-C - Last Filed: 08/05/22 11:40> Heart sounds: S1 normal heart sound present and S2 normal heart sound present <Ana Maria Antunez [employer]-C - Last Filed: 08/05/22 11:40> Peripheral pulses: Peripheral pulses 2+ throughout <Ana Maria Antunez ISAELC - Last Filed: 08/05/22 11:40> GI Inspection: Yes normal to inspection <Ana Maria Antunez [employer]TER-C - Last Filed: 08/05/22 11:40> Extrem General: Yes normal to inspection and No edema <Ana Maria AntunezRADHA-C - Last Filed: 08/05/22 11:40> Objective Labs and Meds Result diagrams: 08/03/22 06:05 08/03/22 06:05 <Ana Maria Antunez [employer]-C - Last Filed: 08/05/22 11:40> Lab results: Laboratory Results - last 24 hr 08/04/22 08/04/22 08/05/22 15:31 19:27 05:48 PT 13.0 INR 1.1 APTT 33.7 POC Glucose 150 H 215 H Blood Type Antibody Screen 08/05/22 08/05/22 08/05/22 05:48 07:27 10:59 PT INR APTT POC Glucose 112 118 H Blood Type O Positive Antibody Screen NEGATIVE <Ana Maria Antunez [employer]TER-C - Last Filed: 08/05/22 11:40> Progress Note: A&P Assessment and plan (1) Issa: Status: Acute <Ana Maria AntunezRADHA-C - Last Filed: 08/05/22 11:40> Assessment and Plan: EKG on admit showing Second degree heart block type 1. During admission, tele monitor has shows advanced degree heart block with rates into the 20s. No presyncope or syncope. Notes do indicate some lightheadedness. At present condition stable with Tele showing heart rates 40s- 60s, SR and episodes of second degree heart block. Pt has been seen by Thoracic surgery and plan is for PPM placement today. He is currently NPO and family members at bedside. Ongoing tele monitoring. Give no rate slowing medications. We will follow. <TAI Vanegas - Last Filed: 08/05/22 11:40> EKG on admit showing Second degree heart block type 1. During admission, tele monitor has shows advanced degree heart block with rates into the 20s. No presyncope or syncope. Notes do indicate some lightheadedness. At present condition stable with Tele showing heart rates 40s- 60s, SR and episodes of second degree heart block. Pt has been seen by Thoracic surgery and plan is for PPM placement today. He is currently NPO and family members at bedside. Ongoing tele monitoring. Give no rate slowing medications. We will follow. Patient with Mobitz type 1 second-degree AV block but also intermittent advanced AV block. Plan for pacemaker later today. Discussed again with the patient. He is agreeable. Will check pacemaker tomorrow and if mole from cardiac perspective can be discharged home. <Ronak Welch MD - Last Filed: 08/05/22 13:33> (2) Complete heart block: Status: Acute <TAI Vanegas - Last Filed: 08/05/22 11:40> (3) Pneumonia: Status: Acute <TAI Vanegas - Last Filed: 08/05/22 11:40> Assessment and Plan: Being managed by hospitalist. On IV ABs. Afebrile. <TAI Vanegas - Last Filed: 08/05/22 11:40> Time Spent With Patient Time: Total time managing care of this patient today 16____ minutes. <TAI Vanegas - Last Filed: 08/05/22 11:40> Progress Note: Quality Stroke Does the patient have a stroke diagnosis?: No <TAI Vanegas - Last Filed: 08/05/22 11:40> Procedures Date of Service Date of Service: 08/05/22 <TAI Vanegas - Last Filed: 08/05/22 11:40>
--- NOTE | 2022-08-05 15:28 | P.CONGS_ITS ---
History of Present Illness Consult details Consult date: 08/05/22 Requesting physician: Ronak Welch Narrative: History was obtained with help of event specialist product demonstrator at bedside and despite the event specialist product demonstrator patient is a poor historian.? Patient with prior history of what appears to be dementia and admitted with encephalopathy and pneumonia.? On admission EKGs consistent with normal sinus rhythm with Mobitz type 1 second- degree AV block.? Patient while being monitored noted to have bradycardia and often heart rate going into the upper 20s.? Patient says he feels weak and lightheaded.? However this is very nonspecific.? Currently his heart rate is adequate and continues to have some lightheadedness.? There is no clear history of syncope patient does not recall.? He is somewhat confused.? Patient noted to have sinus rhythm with AV dissociation consistent with advanced AV block.? Intermittent episodes of Mobitz type 1 second-degree AV block noted.? Also blocked PACs noted.It is very difficult to truly assess whether he has symptoms from this because he states he is lightheaded even when rhythm and rate are more normal. Other than above, 12 point review of systems was done and documented separately in the office chart with detailed social and family history. [facility] Past Medical History Medical History Diabetes Pneumonia [facility] Social History Social History Household Members: None Housing: Apartment Alcohol intake: unknown Patient Tobacco Use Status: Never used Tobacco Smoked in Last 30 Days: No Patient Interested in Nicotine Replacement: No Patient Given Instructions on How to Stop Smoking: No Second Hand Smoke Exposure: No Use of substances other than those prescribed or required for medical reasons: No Substance Use Type: Unknown Currently Displaying Signs/Symptoms of Drug Intoxication Withdrawal: No Any prior treatment program specific to substance use: No Have you been hit, kicked, punched, or otherwise hurt by someone within the past year? If so, by whom?: No Do you feel safe in your current relationship?: No Current Relationship Is there a partner from a previous relationship who is making you feel unsafe now?: No Are you made to feel afraid or neglected: No Are you DNR?: No Advance Directives: No Do you have thoughts of harming others: None Do you have a plan to hurt others: No Plan Recently lost weight without trying: Yes How much weight loss: Unsure Eating poorly because of decreased appetite: No Nutrition screen score: 4 Nutrition Risks: No Nutritional Risk Poor oral hygiene: Yes service: No Current occupational status: disabled Meds Allergies Allergy/AdvReac Type Severity Reaction Status Date / Time No Known Allergies Allergy Verified 08/05/20 11:46 Active Medications: Current Medications Acetaminophen (Acetaminophen 325 Mg Tablet) 650 mg PO Q6H PRN PRN Reason: Pain, Mild (Pain Scale 1-3) Last Admin: 08/04/22 20:19 Dose: 650 mg Albuterol Sulfate (Albuterol Sulfate (0.042%) 1.25 Mg/3 Ml Vial.Neb) 1.25 mg INHALE Q4H PRN PRN Reason: Shortness of Breath Amlodipine Besylate (Amlodipine Besylate 5 Mg Tablet) 5 mg PO DAILY [facility]; Protocol Last Admin: 08/05/22 08:19 Dose: 5 mg Atropine Sulfate (Atropine Sulfate 1 Mg/Ml Vial) 0.5 mg IVPUSH Q5M PRN PRN Reason: bradycardia Dextrose (Dextrose 50 % 25 Gm/50 Ml Syringe) 25 gm IVPUSH Q15M PRN; Protocol PRN Reason: per Hypoglycemia Standing Ord. Docusate Sodium (Docusate Sodium 100 Mg Capsule) 100 mg PO DAILY PRN PRN Reason: Constipation Enoxaparin Sodium (Enoxaparin Sodium 40 Mg/0.4 Ml Syringe) 40 mg SUBCUT Q24H [facility] Last Admin: 08/04/22 16:28 Dose: 40 mg Glucose (Glucose Gel 15 Gm Gel..Gram.) 15 gm PO Q15M PRN; Protocol PRN Reason: per Hypoglycemia Standing Ord. Guaifenesin (Guaifenesin 200 Mg/10 Ml 10 Ml Liquid) 10 ml PO Q6H PRN PRN Reason: Cough Hydralazine HCl (Hydralazine Hcl 20 Mg/Ml Vial) 5 mg IVPUSH Q6H PRN; Protocol PRN Reason: SBP >180 Azithromycin 500 mg/ Sodium (Chloride) 250 mls @ 125 mls/hr IV Q24H [facility] Last Infusion: 08/04/22 19:29 Dose: Infused Ceftriaxone Sodium 1 gm/ (Sodium Chloride) 50 mls @ 100 mls/hr IV Q24H [facility] Last Admin: 08/05/22 15:10 Dose: Not Given Insulin Human Lispro (Insulin Lispro 100 Unit/Ml 3 Ml Vial) 0 unit SUBCUT QIDAADAN [facility]; Protocol Last Admin: 08/05/22 11:56 Dose: Not Given Pharmacy Consult (Consult Rx Perform Med Rec) 1 each MISCELLANE ONCE PRN PRN Reason: Consult order Sodium Chloride (0.9 % Sodium Chloride Flush 3 Ml Syringe) [facility] Last Admin: 08/05/22 08:19 Dose: 3 ml Home Medications Medication Instructions Recorded Confirmed Last Taken Type acetaminophen 325 mg tablet 650 mg PO Q6H PRN Pain 08/02/22 08/02/22 Unknown History (Tylenol) Physical Exam Vital Signs: Vital Signs: Last Vital Signs Temp 97.3 F 08/05/22 11:00 Pulse 68 08/05/22 11:00 Resp 14 08/05/22 11:00 BP 143/67 H 08/05/22 11:00 Pulse Ox 98 08/05/22 11:00 O2 Del Method 08/05/22 11:00 BMI result Body Mass Index 29.3 General: No acute distress HEENT: Moist mucous membranes, normocephalic, pupils equal round and reactive to light. Neck: No thyromegaly, supple, no JVD Lymph: No cervical, supraclavicular, or other lymphadenopathy Chest: No chest wall abnormalities or deformities Heart: Regular rate and rhythm Lungs: Clear to auscultation bilaterally Abdomen: Soft, nontender, normal bowel sounds Extremities: No edema, cyanosis, or clubbing. Full range of motion Neuro: Grossly intact, and nonfocal Skin: Warm and dry no rashes Affect: Normal Results Labs 08/03/22 06:05 08/03/22 06:05 Labs: Abnormal lab results 08/04/22 08/04/22 08/05/22 Range/Units 15:31 19:27 10:59 POC Glucose 150 H 215 H 118 H (60-115) mg/dL Urine 08/02/22 Range/Units 14:25 Urine Color Yellow Urine Appearance Clear Urine pH 5.5 (5.0-9.0) Ur Specific [place] >= 1.030 H (1.005-1.025) Urine Protein 100 (2+) H (Neg-Trace) mg/dL Urine Glucose (UA) 250 H (Negative) mg/dL All other labs normal. Imaging Chest x-ray: image reviewed EKG: report reviewed and image reviewed Assessment and Plan (1) Complete heart block: Status: Acute Plan Agree with dual-chamber permanent pacemaker placement. His stepson Angel signs all of his documentation for him. I had a discussion with patient and his stepson about the dual-chamber permanent pacemaker placement. We discussed the risks benefits and alternatives in detail. The stepson seemed understand and agreed to proceed. The risks discussed include but are not limited to infection, bleeding, pneumothorax, arrhythmia, and . The patient has been NPO and plan is for dual-chamber permanent pacemaker now. Afterwards, we will need to have him in a sling probably for 2 weeks given his confusion and encephalopathy. Time Spent With Patient Time: Total time managing care of this patient today _65___ minutes. Procedures Date of Service Date of Service: 08/05/22
[2022-08-05] MEDS: cefTRIAXone sodium 1 GM in 0.9 % Sodium Chloride 50 ML IV (15:36)
--- NOTE | 2022-08-05 16:59 | HO.ANESPROP2 ---
HPI - Anesthesia Eval Consult details Narrative: 77-year-old male presenting with advanced heart block for permanent pacemaker placement. Per report patient's stepson is the healthcare proxy but no documentation is available to support this. Given the patient's emergent situation with immediate risk of , we will proceed with the implant with the consent from the stepson. Implant surgeon is in agreement. No other contact or family members listed in the chart. [facility] Active Problems Active Problems: All Active Problems (Updated 08/05/22 @ 11:35 by Ana Maria Antunez NP-C) [place] (Acute) Complete heart block (Acute) Encephalopathy (Acute) Inability to walk (Acute) Generalized weakness (Acute) Pneumonia (Acute) COVID-19 (Acute) Past Medical History Medical History Diabetes Pneumonia [place] Family History Family history of problems with anesthesia: No Surgical History History of Problems with Anesthesia: No Social History Social History Household Members: None Housing: Apartment Alcohol intake: unknown Patient Tobacco Use Status: Never used Tobacco Smoked in Last 30 Days: No Patient Interested in Nicotine Replacement: No Patient Given Instructions on How to Stop Smoking: No Second Hand Smoke Exposure: No Use of substances other than those prescribed or required for medical reasons: No Substance Use Type: Unknown Currently Displaying Signs/Symptoms of Drug Intoxication Withdrawal: No Any prior treatment program specific to substance use: No Have you been hit, kicked, punched, or otherwise hurt by someone within the past year? If so, by whom?: No Do you feel safe in your current relationship?: No Current Relationship Is there a partner from a previous relationship who is making you feel unsafe now?: No Are you made to feel afraid or neglected: No Are you DNR?: No Advance Directives: No Do you have thoughts of harming others: None Do you have a plan to hurt others: No Plan Recently lost weight without trying: Yes How much weight loss: Unsure Eating poorly because of decreased appetite: No Nutrition screen score: 4 Nutrition Risks: No Nutritional Risk Poor oral hygiene: Yes service: No Current occupational status: disabled Meds Allergies Allergy/AdvReac Type Severity Reaction Status Date / Time No Known Allergies Allergy Verified 08/05/20 11:46 Active Medications: Current Medications Acetaminophen (Acetaminophen 325 Mg Tablet) 650 mg PO Q6H PRN PRN Reason: Pain, Mild (Pain Scale 1-3) Last Admin: 08/04/22 20:19 Dose: 650 mg Albuterol Sulfate (Albuterol Sulfate (0.042%) 1.25 Mg/3 Ml Vial.Neb) 1.25 mg INHALE Q4H PRN PRN Reason: Shortness of Breath Amlodipine Besylate (Amlodipine Besylate 5 Mg Tablet) 5 mg PO DAILY [facility]; Protocol Last Admin: 08/05/22 08:19 Dose: 5 mg Atropine Sulfate (Atropine Sulfate 1 Mg/Ml Vial) 0.5 mg IVPUSH Q5M PRN PRN Reason: bradycardia Dextrose (Dextrose 50 % 25 Gm/50 Ml Syringe) 25 gm IVPUSH Q15M PRN; Protocol PRN Reason: per Hypoglycemia Standing Ord. Docusate Sodium (Docusate Sodium 100 Mg Capsule) 100 mg PO DAILY PRN PRN Reason: Constipation Enoxaparin Sodium (Enoxaparin Sodium 40 Mg/0.4 Ml Syringe) 40 mg SUBCUT Q24H [facility] Last Admin: 08/04/22 16:28 Dose: 40 mg Glucose (Glucose Gel 15 Gm Gel..Gram.) 15 gm PO Q15M PRN; Protocol PRN Reason: per Hypoglycemia Standing Ord. Guaifenesin (Guaifenesin 200 Mg/10 Ml 10 Ml Liquid) 10 ml PO Q6H PRN PRN Reason: Cough Hydralazine HCl (Hydralazine Hcl 20 Mg/Ml Vial) 5 mg IVPUSH Q6H PRN; Protocol PRN Reason: SBP >180 Azithromycin 500 mg/ Sodium (Chloride) 250 mls @ 125 mls/hr IV Q24H [facility] Last Infusion: 08/04/22 19:29 Dose: Infused Ceftriaxone Sodium 1 gm/ (Sodium Chloride) 50 mls @ 100 mls/hr IV Q24H [facility] Last Admin: 08/05/22 15:36 Dose: 50 mls/hr Insulin Human Lispro (Insulin Lispro 100 Unit/Ml 3 Ml Vial) 0 unit SUBCUT QIDACHS [facility]; Protocol Last Admin: 08/05/22 11:56 Dose: Not Given Pharmacy Consult (Consult Rx Perform Med Rec) 1 each MISCELLANE ONCE PRN PRN Reason: Consult order Sodium Chloride (0.9 % Sodium Chloride Flush 3 Ml Syringe) 3 ml IVFLUSH QSHIFT NICOLETTE Last Admin: 08/05/22 08:19 Dose: 3 ml Home Medications Medication Instructions Recorded Confirmed Last Taken Type acetaminophen 325 mg tablet 650 mg PO Q6H PRN Pain 08/02/22 08/02/22 Unknown History (Tylenol) Exam Exam Date and Time: August 05, 2022 1651 Height,Weight and Vital Signs: Height 5 ft 10 in Weight 204 lb 12.951 oz Last Vital Signs Temp 97.3 F 08/05/22 11:00 Pulse 68 08/05/22 11:00 Resp 14 08/05/22 11:00 BP 143/67 H 08/05/22 11:00 Pulse Ox 98 08/05/22 11:00 O2 Del Method 08/05/22 11:00 Pertinent Lab Results Pertinent Lab Results: Laboratory Tests 08/02/22 08/02/22 08/02/22 11:58 11:58 11:58 WBC 11.0 H RBC 5.34 Hgb 14.9 Hct 45.4 MCV 85.0 MCH 27.9 MCHC 32.8 RDW 13.7 Plt Count 251 MPV 11.4 Immature Gran % (Auto) 0.3 Neut % (Auto) 79.4 H Lymph % (Auto) 13.6 L [place] % (Auto) 6.3 Eos % (Auto) 0.1 Baso % (Auto) 0.3 Lymph # (Auto) 1.5 [place] # (Auto) 0.7 Eos # (Auto) 0.0 Baso # (Auto) 0.0 Abs Immat Gran (auto) 0.03 Absolute Neuts (auto) 8.8 H Absolute Nucleated RBC 0.000 Nucleated RBC % (auto) 0.0 PT INR APTT Sodium 139 Potassium 4.0 Chloride 104 Carbon Dioxide 23 Anion Gap 16 BUN 17 H Creatinine 1.10 Estim Creat Clear Calc 65.2 Estimated GFR > 60 POC Glucose Random Glucose 249 H Lactic Acid Calcium 9.9 D Total Bilirubin 0.9 Direct Bilirubin 0.3 AST 19 ALT 19 Alkaline Phosphatase 57 Troponin I High Sens 99.2 H B-Natriuretic Peptide Total Protein 7.4 Albumin 4.4 Lipase 42 Urine Color Urine Appearance Urine pH Ur Specific [place] Urine Protein Urine Glucose (UA) Urine Ketones Urine Blood Urine Nitrite Ur Leukocyte Esterase Urine RBC Urine WBC Ur Squamous Epith Cells Urine Bacteria Hyaline Casts Respiratory Panel [place] Adenovirus (Rapid PCR) B.pert (TEM-PCR) B.parapertussis DNA PCR C. pneumoniae DNA (PCR) Coronavirus OC43 (PCR) Coronavirus HKU1 (PCR) Coronavirus 229E (PCR) Coronavirus NL63 (PCR) Human Metapneumovir PCR Influenza A (RT-PCR) Influenza Type A (PCR) Influenza B (RT-PCR) Influenza Type B (PCR) M. pneumoniae (PCR) Parainfluenza 1 (PCR) Parainfluenza 2 (PCR) Parainfluenza 3 (PCR) Parainfluenza 4 (PCR) RSV (PCR) RSV RNA Qual (PCR) Entero/Rhino (PCR) SARS-CoV-2 RNA (RT-PCR) Blood Type Antibody Screen 08/02/22 08/02/22 08/02/22 12:48 14:25 14:25 WBC RBC Hgb Hct MCV MCH MCHC RDW Plt Count MPV Immature Gran % (Auto) Neut % (Auto) Lymph % (Auto) [place] % (Auto) Eos % (Auto) Baso % (Auto) Lymph # (Auto) [place] # (Auto) Eos # (Auto) Baso # (Auto) Abs Immat Gran (auto) Absolute Neuts (auto) Absolute Nucleated RBC Nucleated RBC % (auto) PT INR APTT Sodium Potassium Chloride Carbon Dioxide Anion Gap BUN Creatinine Estim Creat Clear Calc Estimated GFR POC Glucose Random Glucose Lactic Acid 1.9 Calcium Total Bilirubin Direct Bilirubin AST ALT Alkaline Phosphatase Troponin I High Sens B-Natriuretic Peptide Total Protein Albumin Lipase Urine Color Yellow Urine Appearance Clear Urine pH 5.5 Ur Specific [place] >= 1.030 H Urine Protein 100 (2+) H Urine Glucose (UA) 250 H Urine Ketones 40 Urine Blood Trace H Urine Nitrite Negative Ur Leukocyte Esterase Negative Urine RBC 0-2 Urine WBC 0-5 Ur Squamous Epith Cells 0-2 Urine Bacteria None Seen Hyaline Casts 0-2 Respiratory Panel [place] Adenovirus (Rapid PCR) B.pert (TEM-PCR) B.parapertussis DNA PCR C. pneumoniae DNA (PCR) Coronavirus OC43 (PCR) Coronavirus HKU1 (PCR) Coronavirus 229E (PCR) Coronavirus NL63 (PCR) Human Metapneumovir PCR Influenza A (RT-PCR) Influenza Type A (PCR) NEGATIVE Influenza B (RT-PCR) Influenza Type B (PCR) NEGATIVE M. pneumoniae (PCR) Parainfluenza 1 (PCR) Parainfluenza 2 (PCR) Parainfluenza 3 (PCR) Parainfluenza 4 (PCR) RSV (PCR) RSV RNA Qual (PCR) NEGATIVE Entero/Rhino (PCR) SARS-CoV-2 RNA (RT-PCR) NEGATIVE Blood Type Antibody Screen 08/02/22 08/02/22 08/02/22 15:19 15:19 17:10 WBC RBC Hgb Hct MCV MCH MCHC RDW Plt Count MPV Immature Gran % (Auto) Neut % (Auto) Lymph % (Auto) [place] % (Auto) Eos % (Auto) Baso % (Auto) Lymph # (Auto) [place] # (Auto) Eos # (Auto) Baso # (Auto) Abs Immat Gran (auto) Absolute Neuts (auto) Absolute Nucleated RBC Nucleated RBC % (auto) PT INR APTT Sodium Potassium Chloride Carbon Dioxide Anion Gap BUN Creatinine Estim Creat Clear Calc Estimated GFR POC Glucose Random Glucose Lactic Acid Calcium Total Bilirubin Direct Bilirubin AST ALT Alkaline Phosphatase Troponin I High Sens 112.5 H* B-Natriuretic Peptide 308 H Total Protein Albumin Lipase Urine Color Urine Appearance Urine pH Ur Specific [place] Urine Protein Urine Glucose (UA) Urine Ketones Urine Blood Urine Nitrite Ur Leukocyte Esterase Urine RBC Urine WBC Ur Squamous Epith Cells Urine Bacteria Hyaline Casts Respiratory Panel [place] See Note Adenovirus (Rapid PCR) Not Detected B.pert (TEM-PCR) Not Detected B.parapertussis DNA PCR Not Detected C. pneumoniae DNA (PCR) Not Detected Coronavirus OC43 (PCR) Not Detected Coronavirus HKU1 (PCR) Not Detected Coronavirus 229E (PCR) Not Detected Coronavirus NL63 (PCR) Not Detected Human Metapneumovir PCR Not Detected Influenza A (RT-PCR) Not Detected Influenza Type A (PCR) Influenza B (RT-PCR) Not Detected Influenza Type B (PCR) M. pneumoniae (PCR) Not Detected Parainfluenza 1 (PCR) Not Detected Parainfluenza 2 (PCR) Not Detected Parainfluenza 3 (PCR) Not Detected Parainfluenza 4 (PCR) Not Detected RSV (PCR) Not Detected RSV RNA Qual (PCR) Entero/Rhino (PCR) Not Detected SARS-CoV-2 RNA (RT-PCR) Not Detected Blood Type Antibody Screen 08/02/22 08/02/22 08/03/22 17:35 19:58 06:05 WBC 13.1 H RBC 4.80 Hgb 13.7 L Hct 41.3 L MCV 86.0 MCH 28.5 MCHC 33.2 RDW 13.6 Plt Count 230 MPV 11.7 Immature Gran % (Auto) Neut % (Auto) Lymph % (Auto) [place] % (Auto) Eos % (Auto) Baso % (Auto) Lymph # (Auto) [place] # (Auto) Eos # (Auto) Baso # (Auto) Abs Immat Gran (auto) Absolute Neuts (auto) Absolute Nucleated RBC 0.000 Nucleated RBC % (auto) 0.0 PT INR APTT Sodium Potassium Chloride Carbon Dioxide Anion Gap BUN Creatinine Estim Creat Clear Calc Estimated GFR POC Glucose 160 H 110 Random Glucose Lactic Acid Calcium Total Bilirubin Direct Bilirubin AST ALT Alkaline Phosphatase Troponin I High Sens B-Natriuretic Peptide Total Protein Albumin Lipase Urine Color Urine Appearance Urine pH Ur Specific [place] Urine Protein Urine Glucose (UA) Urine Ketones Urine Blood Urine Nitrite Ur Leukocyte Esterase Urine RBC Urine WBC Ur Squamous Epith Cells Urine Bacteria Hyaline Casts Respiratory Panel [place] Adenovirus (Rapid PCR) B.pert (TEM-PCR) B.parapertussis DNA PCR C. pneumoniae DNA (PCR) Coronavirus OC43 (PCR) Coronavirus HKU1 (PCR) Coronavirus 229E (PCR) Coronavirus NL63 (PCR) Human Metapneumovir PCR Influenza A (RT-PCR) Influenza Type A (PCR) Influenza B (RT-PCR) Influenza Type B (PCR) M. pneumoniae (PCR) Parainfluenza 1 (PCR) Parainfluenza 2 (PCR) Parainfluenza 3 (PCR) Parainfluenza 4 (PCR) RSV (PCR) RSV RNA Qual (PCR) Entero/Rhino (PCR) SARS-CoV-2 RNA (RT-PCR) Blood Type Antibody Screen 08/03/22 08/03/22 08/03/22 06:05 07:18 11:14 WBC RBC Hgb Hct MCV MCH MCHC RDW Plt Count MPV Immature Gran % (Auto) Neut % (Auto) Lymph % (Auto) [place] % (Auto) Eos % (Auto) Baso % (Auto) Lymph # (Auto) [place] # (Auto) Eos # (Auto) Baso # (Auto) Abs Immat Gran (auto) Absolute Neuts (auto) Absolute Nucleated RBC Nucleated RBC % (auto) PT INR APTT Sodium 142 Potassium 3.9 Chloride 107 Carbon Dioxide 23 Anion Gap 16 BUN 15 Creatinine 0.87 Estim Creat Clear Calc 81.4 Estimated GFR > 60 POC Glucose 114 116 H Random Glucose 111 Lactic Acid Calcium 9.4 Total Bilirubin Direct Bilirubin AST ALT Alkaline Phosphatase Troponin I High Sens B-Natriuretic Peptide Total Protein Albumin Lipase Urine Color Urine Appearance Urine pH Ur Specific [place] Urine Protein Urine Glucose (UA) Urine Ketones Urine Blood Urine Nitrite Ur Leukocyte Esterase Urine RBC Urine WBC Ur Squamous Epith Cells Urine Bacteria Hyaline Casts Respiratory Panel [place] Adenovirus (Rapid PCR) B.pert (TEM-PCR) B.parapertussis DNA PCR C. pneumoniae DNA (PCR) Coronavirus OC43 (PCR) Coronavirus HKU1 (PCR) Coronavirus 229E (PCR) Coronavirus NL63 (PCR) Human Metapneumovir PCR Influenza A (RT-PCR) Influenza Type A (PCR) Influenza B (RT-PCR) Influenza Type B (PCR) M. pneumoniae (PCR) Parainfluenza 1 (PCR) Parainfluenza 2 (PCR) Parainfluenza 3 (PCR) Parainfluenza 4 (PCR) RSV (PCR) RSV RNA Qual (PCR) Entero/Rhino (PCR) SARS-CoV-2 RNA (RT-PCR) Blood Type Antibody Screen 08/03/22 08/03/22 08/04/22 15:41 19:21 07:12 WBC RBC Hgb Hct MCV MCH MCHC RDW Plt Count MPV Immature Gran % (Auto) Neut % (Auto) Lymph % (Auto) [place] % (Auto) Eos % (Auto) Baso % (Auto) Lymph # (Auto) [place] # (Auto) Eos # (Auto) Baso # (Auto) Abs Immat Gran (auto) Absolute Neuts (auto) Absolute Nucleated RBC Nucleated RBC % (auto) PT INR APTT Sodium Potassium Chloride Carbon Dioxide Anion Gap BUN Creatinine Estim Creat Clear Calc Estimated GFR POC Glucose 205 H 113 116 H Random Glucose Lactic Acid Calcium Total Bilirubin Direct Bilirubin AST ALT Alkaline Phosphatase Troponin I High Sens B-Natriuretic Peptide Total Protein Albumin Lipase Urine Color Urine Appearance Urine pH Ur Specific [place] Urine Protein Urine Glucose (UA) Urine Ketones Urine Blood Urine Nitrite Ur Leukocyte Esterase Urine RBC Urine WBC Ur Squamous Epith Cells Urine Bacteria Hyaline Casts Respiratory Panel [place] Adenovirus (Rapid PCR) B.pert (TEM-PCR) B.parapertussis DNA PCR C. pneumoniae DNA (PCR) Coronavirus OC43 (PCR) Coronavirus HKU1 (PCR) Coronavirus 229E (PCR) Coronavirus NL63 (PCR) Human Metapneumovir PCR Influenza A (RT-PCR) Influenza Type A (PCR) Influenza B (RT-PCR) Influenza Type B (PCR) M. pneumoniae (PCR) Parainfluenza 1 (PCR) Parainfluenza 2 (PCR) Parainfluenza 3 (PCR) Parainfluenza 4 (PCR) RSV (PCR) RSV RNA Qual (PCR) Entero/Rhino (PCR) SARS-CoV-2 RNA (RT-PCR) Blood Type Antibody Screen 08/04/22 08/04/22 08/04/22 11:03 15:31 19:27 WBC RBC Hgb Hct MCV MCH MCHC RDW Plt Count MPV Immature Gran % (Auto) Neut % (Auto) Lymph % (Auto) [place] % (Auto) Eos % (Auto) Baso % (Auto) Lymph # (Auto) [place] # (Auto) Eos # (Auto) Baso # (Auto) Abs Immat Gran (auto) Absolute Neuts (auto) Absolute Nucleated RBC Nucleated RBC % (auto) PT INR APTT Sodium Potassium Chloride Carbon Dioxide Anion Gap BUN Creatinine Estim Creat Clear Calc Estimated GFR POC Glucose 168 H 150 H 215 H Random Glucose Lactic Acid Calcium Total Bilirubin Direct Bilirubin AST ALT Alkaline Phosphatase Troponin I High Sens B-Natriuretic Peptide Total Protein Albumin Lipase Urine Color Urine Appearance Urine pH Ur Specific [place] Urine Protein Urine Glucose (UA) Urine Ketones Urine Blood Urine Nitrite Ur Leukocyte Esterase Urine RBC Urine WBC Ur Squamous Epith Cells Urine Bacteria Hyaline Casts Respiratory Panel [place] Adenovirus (Rapid PCR) B.pert (TEM-PCR) B.parapertussis DNA PCR C. pneumoniae DNA (PCR) Coronavirus OC43 (PCR) Coronavirus HKU1 (PCR) Coronavirus 229E (PCR) Coronavirus NL63 (PCR) Human Metapneumovir PCR Influenza A (RT-PCR) Influenza Type A (PCR) Influenza B (RT-PCR) Influenza Type B (PCR) M. pneumoniae (PCR) Parainfluenza 1 (PCR) Parainfluenza 2 (PCR) Parainfluenza 3 (PCR) Parainfluenza 4 (PCR) RSV (PCR) RSV RNA Qual (PCR) Entero/Rhino (PCR) SARS-CoV-2 RNA (RT-PCR) Blood Type Antibody Screen 08/05/22 08/05/22 08/05/22 05:48 05:48 07:27 WBC RBC Hgb Hct MCV MCH MCHC RDW Plt Count MPV Immature Gran % (Auto) Neut % (Auto) Lymph % (Auto) [place] % (Auto) Eos % (Auto) Baso % (Auto) Lymph # (Auto) [place] # (Auto) Eos # (Auto) Baso # (Auto) Abs Immat Gran (auto) Absolute Neuts (auto) Absolute Nucleated RBC Nucleated RBC % (auto) PT 13.0 INR 1.1 APTT 33.7 Sodium Potassium Chloride Carbon Dioxide Anion Gap BUN Creatinine Estim Creat Clear Calc Estimated GFR POC Glucose 112 Random Glucose Lactic Acid Calcium Total Bilirubin Direct Bilirubin AST ALT Alkaline Phosphatase Troponin I High Sens B-Natriuretic Peptide Total Protein Albumin Lipase Urine Color Urine Appearance Urine pH Ur Specific [place] Urine Protein Urine Glucose (UA) Urine Ketones Urine Blood Urine Nitrite Ur Leukocyte Esterase Urine RBC Urine WBC Ur Squamous Epith Cells Urine Bacteria Hyaline Casts Respiratory Panel [place] Adenovirus (Rapid PCR) B.pert (TEM-PCR) B.parapertussis DNA PCR C. pneumoniae DNA (PCR) Coronavirus OC43 (PCR) Coronavirus HKU1 (PCR) Coronavirus 229E (PCR) Coronavirus NL63 (PCR) Human Metapneumovir PCR Influenza A (RT-PCR) Influenza Type A (PCR) Influenza B (RT-PCR) Influenza Type B (PCR) M. pneumoniae (PCR) Parainfluenza 1 (PCR) Parainfluenza 2 (PCR) Parainfluenza 3 (PCR) Parainfluenza 4 (PCR) RSV (PCR) RSV RNA Qual (PCR) Entero/Rhino (PCR) SARS-CoV-2 RNA (RT-PCR) Blood Type O Positive Antibody Screen NEGATIVE 08/05/22 10:59 WBC RBC Hgb Hct MCV MCH MCHC RDW Plt Count MPV Immature Gran % (Auto) Neut % (Auto) Lymph % (Auto) [place] % (Auto) Eos % (Auto) Baso % (Auto) Lymph # (Auto) [place] # (Auto) Eos # (Auto) Baso # (Auto) Abs Immat Gran (auto) Absolute Neuts (auto) Absolute Nucleated RBC Nucleated RBC % (auto) PT INR APTT Sodium Potassium Chloride Carbon Dioxide Anion Gap BUN Creatinine Estim Creat Clear Calc Estimated GFR POC Glucose 118 H Random Glucose Lactic Acid Calcium Total Bilirubin Direct Bilirubin AST ALT Alkaline Phosphatase Troponin I High Sens B-Natriuretic Peptide Total Protein Albumin Lipase Urine Color Urine Appearance Urine pH Ur Specific [place] Urine Protein Urine Glucose (UA) Urine Ketones Urine Blood Urine Nitrite Ur Leukocyte Esterase Urine RBC Urine WBC Ur Squamous Epith Cells Urine Bacteria Hyaline Casts Respiratory Panel [place] Adenovirus (Rapid PCR) B.pert (TEM-PCR) B.parapertussis DNA PCR C. pneumoniae DNA (PCR) Coronavirus OC43 (PCR) Coronavirus HKU1 (PCR) Coronavirus 229E (PCR) Coronavirus NL63 (PCR) Human Metapneumovir PCR Influenza A (RT-PCR) Influenza Type A (PCR) Influenza B (RT-PCR) Influenza Type B (PCR) M. pneumoniae (PCR) Parainfluenza 1 (PCR) Parainfluenza 2 (PCR) Parainfluenza 3 (PCR) Parainfluenza 4 (PCR) RSV (PCR) RSV RNA Qual (PCR) Entero/Rhino (PCR) SARS-CoV-2 RNA (RT-PCR) Blood Type Antibody Screen Airway Mallampati Class: II TM Dist: >3cm Neck ROM: Full Denture: Upper Loose/Missing/Broken Teeth: Yes Assessment and Plan Assessment Anesthesia Assessment: Anesthesia Plan Discussed and Chart Reviewed Final Anesthetic Review Family History of Problems with Anesthesia: No History of Problems with Anesthesia: No NPO: Yes ASA Class: IV and Emergency Final Preanesthetic Review: No Changes in Pt Med Stat, Meds/Allgs Chart Reviewed, Consent Obtained/Reviewed and Anes Risks/Benef Reviewed Patient Risk: High Procedure Risk: Intermediate Anesthetic Plan Anesthetic Plan: MAC: Disposition: Standard PACU
--- NOTE | 2022-08-05 17:19 | P.OP_ITS ---
Operative Note Operative Note Date of Service: 08/05/22 Narrative: Preoperative diagnosis: Advanced heart block with symptoms, intermittent complete block Postoperative diagnosis: Same Operation: Placement of dual-chamber permanent pacemaker with fluoroscopic guidance Surgeon: Pancho Mcgee MD Specimens: None EBL: 5 cc Operative findings: prior to the operation in the preoperative area I did witness to episodes of complete heart block with heart rate dipping into the teens. I did wake the patient up and his heart rate responded both times that this happened. For this reason we proceeded urgently to the operating room.The pacemaker placed was a [employer] MRI serial [id number]. The atrial lead was a [employer] serial number [id number]. The ventricular lead was a [employer] serial number [id number]. Parameters in the right atrial lead sensing was 1.9 with an impedance of 400 Ohms and a threshold of 0.75 volts at 0.4 milliseconds. In the ventricular lead threshold was 0.75 volts at 0.4 milliseconds with an impedance of 940 Ohms and a an R-wave of 11.4 mV. Patient tolerated procedure well. Operation in detail: The patient was brought to the operating room, placed supine on the operating room table, anesthesia moderate of ices were placed, and the patient was gently sedated. A time-out was performed confirming the correct patient site and procedure. After injection of local anesthetic, a 3 cm incision was made in the left infraclavicular region and carried down to the pectoralis fascia with electrocautery. The patient was then placed in Trendelenburg and an 18 gauge needle was used to access subclavian vein on the 1st take. And a wire was placed into the right atrium under fluoroscopic guidance. A 2nd 18 gauge needle was then used to access the subclavian vein again on the 1st ache and a wire was placed under fluoroscopic guidance and parked in the right atrium. The patient was then taken out of Trendelenburg and a pocket was formed using blunt and electrocautery dissection. The 1st 6 [place] sheath was then placed over wire and the wire and dilator were removed. The ventricular lead was then placed through the sheath and parked in the right atrium and the peel-away sheath was removed. After several attempts using a curved stylet we were eventually able to access the right ventricle and the tip of the lead was positioned at the right ventricular apex. The endocardial screw was deployed and the lead was tested with excellent parameters above. This lead was then secured with silk sutures to the pectoralis fascia. The 2nd 6 [place] sheath was then placed over the 2nd wire and a wire dilator removed. The atrial lead was then placed and parked in the right atrium. AJ stylet was used to position this in the right atrial appendage. The endocardial screws deployed and the lead was tested with excellent parameters above. This lead was also secured with silk sutures to the pectoralis fascia. The pocket was then copiously irrigated with antibiotic solution. The leads were then placed in their appropriate receptacles and the pacemaker was tested again with excellent parameters. The generator and excess lead was then placed into the pocket. The wound was then closed with a deep running 3-0 Vicryl suture followed by running 3-0 Vicryl suture and Dermabond glue in the skin. The patient was then brought back to the recovery room in stable condition.
[2022-08-05] MEDS: Acetaminophen 1,000 MG/100 ML PIGGYBACK 400 MG IV (18:25)
[2022-08-05] MEDS: Azithromycin 500 MG in 0.9 % Sodium Chloride 250 ML 125 MG IV (18:40)
[2022-08-05 19:41] LABS: Glucose, Whole Blood 132 mg/dL (60-115)
[2022-08-06] VITALS (7 sets, daily range): BP systolic 110–157; BP diastolic 52–78; PULSE 71–82; RESP 14–20; TEMP 35.8–36.8; O2SAT 93–98
[2022-08-06 07:45] LABS: Glucose, Whole Blood 100 mg/dL (60-115)
[2022-08-06] MEDS: amLODIPine Besylate 5 MG TABLET PO (08:43)
[2022-08-06] MEDS: 0.9 % Sodium Chloride Flush 3 ML SYRINGE IVFLUSH ×3 (08:43→20:12)
--- NOTE | 2022-08-06 10:31 | HO.POSTANES ---
Post Anesthesia Evaluation Post Anesthesia Evaluation Vital Signs: Vital Signs Temp Pulse Resp BP Pulse Ox O2 Del Method O2 Flow Rate 08/06/22 07:24 98.0 F 78 20 138/78 97 Room Air 08/06/22 04:00 72 16 08/05/22 23:42 97.5 F 71 15 135/62 99 Nasal Cannula 2 Anesthesia: General Mental Status: Awake Pain Control: Satisfactory Nausea/Vomiting: None Hydration: Adequate Anesthesia-Related Issues: No Anes. Related Issues
[2022-08-06 11:27] LABS: Glucose, Whole Blood 315 mg/dL (60-115)
[2022-08-06] MEDS: Insulin Lispro 100 UNIT/ML 3 ML VIAL SUBCUT ×2 (12:11→20:11)
--- NOTE | 2022-08-06 14:07 | HO.PM.IMPN ---
Subjective Subjective Date of Service: 08/06/22 Interval History: Patient awake alert, since Japanese speaking most of the history obtained via family member at bedside, patient denies pain, denies nausea, no vomiting no abdominal discomfort,, admits to feeling okay to all questions. Review of Systems Review of Systems: Yes all other systems are reviewed and are negative Physical Exam Vital Signs: Vital Signs: Last Vital Signs Temp 98.3 F 08/06/22 11:07 Pulse 82 08/06/22 11:07 Resp 20 08/06/22 11:07 BP 157/67 H 08/06/22 11:07 Pulse Ox 93 08/06/22 11:07 O2 Del Method 08/06/22 11:07 O2 Flow Rate 2 08/05/22 23:42 BMI result Body Mass Index 29.3 Const: Other: General awake alert, in no acute distress. Neck no JVD. Left arm in sling CVS regular rate rhythm, Respiratory lungs clear to auscultation, no respiratory distress, no wheeze, no rhonchi. Gastrointestinal abdomen soft, nontender, bowel sounds audible, no guarding , no rigidity. Extremities no edema. Neuro moving all 4 extremity speech clear. Skin no rash Objective Data Active Medications Acetaminophen (Acetaminophen 325 Mg Tablet) 650 mg PO Q6H PRN PRN Reason: Pain, Mild (Pain Scale 1-3) Last Admin: 08/04/22 20:19 Dose: 650 mg Documented By: SHANNAN Albuterol Sulfate (Albuterol Sulfate (0.042%) 1.25 Mg/3 Ml Vial.Neb) 1.25 mg INHALE Q4H PRN PRN Reason: Shortness of Breath Amlodipine Besylate (Amlodipine Besylate 5 Mg Tablet) 5 mg PO DAILY [facility]; Protocol Last Admin: 08/06/22 08:43 Dose: 5 mg Documented By: CAMILLE Atropine Sulfate (Atropine Sulfate 1 Mg/Ml Vial) 0.5 mg IVPUSH Q5M PRN PRN Reason: bradycardia Dextrose (Dextrose 50 % 25 Gm/50 Ml Syringe) 25 gm IVPUSH Q15M PRN; Protocol PRN Reason: per Hypoglycemia Standing Ord. Docusate Sodium (Docusate Sodium 100 Mg Capsule) 100 mg PO DAILY PRN PRN Reason: Constipation Enoxaparin Sodium (Enoxaparin Sodium 40 Mg/0.4 Ml Syringe) 40 mg SUBCUT Q24H [facility] Last Admin: 08/05/22 17:58 Dose: Not Given Documented By: DESMOND Non-Admin Reason: Patient Condition Contraindication Glucose (Glucose Gel 15 Gm Gel..Gram.) 15 gm PO Q15M PRN; Protocol PRN Reason: per Hypoglycemia Standing Ord. Guaifenesin (Guaifenesin 200 Mg/10 Ml 10 Ml Liquid) 10 ml PO Q6H PRN PRN Reason: Cough Hydralazine HCl (Hydralazine Hcl 20 Mg/Ml Vial) 5 mg IVPUSH Q6H PRN; Protocol PRN Reason: SBP >180 Azithromycin 500 mg/ Sodium (Chloride) 250 mls @ 125 mls/hr IV Q24H [facility] Last Infusion: 08/05/22 20:53 Dose: 125 mls/hr Documented By: ANDJEREMY Ceftriaxone Sodium 1 gm/ (Sodium Chloride) 50 mls @ 100 mls/hr IV Q24H [facility] Last Infusion: 08/05/22 18:19 Dose: 0 mls/hr Documented By: DESMOND Insulin Human Lispro (Insulin Lispro 100 Unit/Ml 3 Ml Vial) 0 unit SUBCUT QIDACHS [facility]; Protocol Last Admin: 08/06/22 12:11 Dose: 8 unit Documented By: CAMILLE Ondansetron HCl (Ondansetron Hcl 4 Mg/2 Ml Vial) 4 mg IVPUSH ONCE PRN PRN Reason: Nausea and Vomiting Oxycodone HCl (Oxycodone Hcl Immed Release 5 Mg Tablet) 2.5 mg PO ONCE PRN PRN Reason: Pain, Severe (Pain Scale 7-10) Pharmacy Consult (Consult Rx Perform Med Rec) 1 each MISCELLANE ONCE PRN PRN Reason: Consult order Sodium Chloride (0.9 % Sodium Chloride Flush 3 Ml Syringe) 3 ml IVFLUSH QSHIFT [facility] Last Admin: 08/06/22 08:43 Dose: 3 ml Documented By: CAMILLE Labs 08/03/22 06:05 08/03/22 06:05 Labs: Laboratory Results - last 24 hr 08/05/22 08/06/22 08/06/22 19:37 07:41 11:23 POC Glucose 132 H 100 315 H Assessment and Plan (1) Encephalopathy: Status: Acute (2) Pneumonia: Status: Acute Plan 77-year-old Japanese-speaking male with history of diabetes noncompliant with medication who was brought to the emergency department by family after being found to be weak and confused 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 Kruger no further intervention planned patient is cleared by Cardiology for discharge. acute toxic metabolic encephalopathy. improving likely secondary to pneumonia, respiratory panel negative, normal electrolyte and renal function brain CT negative, UA negative, no acute neurological deficits, follow clinical course and discuss baseline with family, question has mild cognitive impairment. community-acquired pneumonia continue IV ceftriaxone, azithromycin day 4/ Noted to have bump in WBC likely reactive from recent surgery will follow Continue supportive care stable oxygenation diabetes Not compliant with checking blood sugar or taking medications SSI, POCs, ADA diet elevated blood pressure readings no known diagnosis of HTN continue norvasc, few blood pressure readings follow BP elevated trop HsTrop flat no chest pain probable demand related generalized weakness r/t acute illness PT recommend rehab upon discharge dvt ppx lovenox code status - full code HCP - step son Angel Bernal - [phone] requires ongoing inpatient hospitalization for management of pneumonia, encephalopathy Time Spent With Patient Time: Total time managing care of this patient today ____ minutes. Quality Stroke Does the patient have a stroke diagnosis?: No VTE Prior VTE?: No VTE Risk Level:: Medical - moderate - high VTE Device Contraindication: N/A - Device Ordered VTE Drug Contraindication: N/A - Med Ordered
[2022-08-06] MEDS: cefTRIAXone sodium 1 GM in 0.9 % Sodium Chloride 50 ML IV (15:24)
[2022-08-06] MEDS: Enoxaparin Sodium 40 MG/0.4 ML SYRINGE SUBCUT (15:24)
--- NOTE | 2022-08-06 16:11 | P.PNCA_ITS ---
Subjective Subjective Date of Service: 08/06/22 <TAI Vanegas - Last Filed: 08/06/22 16:23> 08/06/22 <Ronak Welch MD - Last Filed: 08/06/22 20:38> Principal diagnosis: Advanced degree heart block, s/p dual chamber pacemaker <TAI Vanegas - Last Filed: 08/06/22 16:23> Interval history: Seen at 1330. Today he is observed resting in bed without distress. He is awake and responds with some yes and no answers. Denies chest pains or trouble breathing. Family member at bedside and reports he is still talking crazy . Pacer site left upper chest with dry dressing. Pt wearing sling. Tele showing V paced rhythm. <TAI Vanegas - Last Filed: 08/06/22 16:23> Review of Systems Review of Systems as above <TAI Vanegas - Last Filed: 08/06/22 16:23> Yes all other systems are reviewed and are negative <TAI Vanegas - Last Filed: 08/06/22 16:23> Physical Exam Vital Signs: Last Vital Signs Temp 96.5 F L 08/06/22 15:24 Pulse 71 08/06/22 15:24 Resp 14 08/06/22 15:24 BP 118/54 L 08/06/22 15:24 Pulse Ox 95 08/06/22 15:24 O2 Del Method 08/06/22 15:24 O2 Flow Rate 2 08/05/22 23:42 BMI result Body Mass Index 29.3 <TAI Vanegas - Last Filed: 08/06/22 16:23> Const General: cooperative, comfortable and no acute distress <TAI Vanegas - Last Filed: 08/06/22 16:23> Neck Neck: Yes normal visual inspection and Yes no JVD <TAI Vanegas - Last Filed: 08/06/22 16:23> Chest Other: Pacemaker site left upper chest: dry gauze dressing covered with tegaderm. No noted swelling, bruising, drainage. <TAI Vanegas - Last Filed: 08/06/22 16:23> Resp Effort & Inspection: normal respiratory effort <Ana Maria AntunezRADHA-C - Last Filed: 08/06/22 16:23> Auscultation: clear to auscultation bilaterally, no crackles, no rales, no rhonchi and no wheezes <Ana Maria AntunezRADHA-C - Last Filed: 08/06/22 16:23> Cardio Jugular venous distension: no JVD <Ana Maria AntunezRADHA-C - Last Filed: 08/06/22 16:23> Rate: regular rate <Ana Maria AntunezRADHA-C - Last Filed: 08/06/22 16:23> Rhythm: regular rhythm <Ana Maria AntunezRADHA-C - Last Filed: 08/06/22 16:23> Heart sounds: S1 normal heart sound present, S2 normal heart sound present, no gallops, no murmurs and no rubs <Ana Maria AntunezRADHA-C - Last Filed: 08/06/22 16:23> Extrem General: Yes normal to inspection <Ana Maria AntunezRADHA-C - Last Filed: 08/06/22 16:23> Psych Appearance: grossly normal <Ana Maria AntunezRADHA-C - Last Filed: 08/06/22 16:23> Objective Labs and Meds Result diagrams: 08/03/22 06:05 08/03/22 06:05 <Ana Maria AntunezRADHA-C - Last Filed: 08/06/22 16:23> Lab results: Laboratory Results - last 24 hr 08/05/22 08/06/22 08/06/22 19:37 07:41 11:23 POC Glucose 132 H 100 315 H <Ana Maria AntunezRADHA-C - Last Filed: 08/06/22 16:23> Imaging Radiologist's impression: Impressions Chest X-Ray 08/05/22 17:35 IMPRESSION: New left chest wall pacemaker in good position. No pneumothorax. <Ana Maria AntunezISAELC - Last Filed: 08/06/22 16:23> Progress Note: A&P Assessment and plan (1) Complete heart block: Status: Acute <Ana Maria Adame ISAEL AntunezC - Last Filed: 08/06/22 16:23> Assessment and Plan: This admit noted to have Mobitz type 1 second-degree AV block and interm ittent advanced AV block. He underwent a [employer] dual chamber pacemaker placement yesterday with Dr Mcgee. CXR post placement shows leads in place and no pneumothorax. Tele monitoring showing V paced rhythm with some PACs. Device interrogation this am shows device is functioning normally. Pacer site looks good with dry dressing and no swelling or bruising noted. He is wearing sling on Left arm. He can be discharged from a cardiology perspective. His 2 week wound check should be arranged by Dr Mcgee. We will arrange a 6 week device check and follow up in our office. <TAI Vanegas - Last Filed: 08/06/22 16:23> This admit noted to have Mobitz type 1 second-degree AV block and intermittent advanced AV block. He underwent a [employer] Eliel dual chamber pacemaker placement yesterday with Dr Mcgee. CXR post placement shows leads in place and no pneumothorax. Tele monitoring showing V paced rhythm with some PACs. Device interrogation this am shows device is functioning normally. Pacer site looks good with dry dressing and no swelling or bruising noted. He is wearing sling on Left arm. He can be discharged from a cardiology perspective. His 2 week wound check should be arranged by Dr Mcgee. We will arrange a 6 week device check and follow up in our office. Case discussed. S/p well functioning pacemaker for advanced AV block. Can discharge. Out patient follow up <Ronak Welch MD - Last Filed: 08/06/22 20:38> (2) [place]bach: Status: Acute <TAI Vanegas - Last Filed: 08/06/22 16:23> (3) Pacemaker: Status: Acute <TAI Vanegas - Last Filed: 08/06/22 16:23> Assessment and Plan: Interrogation today shows [employer] Eliel dual chamber PPM, Implant yesterday, battery 2.89 volts, A threshold 0.5 V at 0.4ms, V threshold 0.5 V at 0.4ms, DDD mode, low rate 60, AP 27%, CHEMICAL ANALYTICAL SAMPLER > 99%, no alerts - Charge [id number] <TAI Vanegas - Last Filed: 08/06/22 16:23> (4) Pneumonia: Status: Acute <TAI Vanegas - Last Filed: 08/06/22 16:23> Assessment and Plan: Being managed by hospitalist. On IV ABs. Afebrile. <TAI Vanegas - Last Filed: 08/06/22 16:23> Time Spent With Patient Time: Total time managing care of this patient today18 ____ minutes. <TAI Vanegas - Last Filed: 08/06/22 16:23> Progress Note: Quality Stroke Does the patient have a stroke diagnosis?: No <TAI Vanegas - Last Filed: 08/06/22 16:23> Procedures Date of Service Date of Service: 08/06/22 <TAI Vanegas - Last Filed: 08/06/22 16:23>
[2022-08-06 16:21] LABS: Glucose, Whole Blood 108 mg/dL (60-115)
[2022-08-06] MEDS: Azithromycin 500 MG in 0.9 % Sodium Chloride 250 ML 125 MG IV (17:12)
[2022-08-06] MEDS: risperiDONE 0.25 MG TABLET PO (18:36)
[2022-08-06 19:58] LABS: Glucose, Whole Blood 176 mg/dL (60-115)
[2022-08-07 03:18] VITALS: BP 147/79; PULSE 67; RESP 16; TEMP 36.3; O2SAT 97
[2022-08-07 06:35] LABS: Hematocrit 42.8 % (42.0-52.0); Hemoglobin 14.2 g/dl (14.0-18.0); Mean Corpuscular HGB Conc 33.2 g/dl (31.0-36.0); Mean Corpuscular Hemoglobin 28.2 pg (27.0-33.0); Mean Corpuscular Volume 85.1 fL (80.0-98.0); Mean Platelet Volume 11.3 fL (9.4-12.4); Platelet Count 231 X10*3/uL (160-400); Red Blood Count 5.03 X10*6/uL (4.60-5.80); Red Cell Distribution Width 13.4 % (11.0-16.0); White Blood Count 11.1 X10*3/uL (4.8-10.8)
[2022-08-07 07:24] VITALS: BP 148/85; PULSE 63; RESP 20; TEMP 36.1; O2SAT 96
[2022-08-07 07:28] LABS: Glucose, Whole Blood 167 mg/dL (60-115)
[2022-08-07] MEDS: amLODIPine Besylate 5 MG TABLET PO (08:28)
[2022-08-07] MEDS: Insulin Lispro 100 UNIT/ML 3 ML VIAL SUBCUT ×2 (08:28→11:32)
--- NOTE | 2022-08-07 10:36 | MHC.CM.PN ---
Patient has been medically cleared for dc to SNF/STR today. Patient is here with Metabolic Encephalopathy/Confusion; CM spoke with Step Son/Angel @ [phone] and addressed IMM with him (original to be mailed certified mail to Angel and a copy has been placed on the chart). Patient will dc to her choice SNF/[facility] today at 2PM, via [facility].
[2022-08-07] MEDS: Azithromycin 500 MG TABLET PO (11:10)
[2022-08-07 11:24] VITALS: BP 131/69; PULSE 75; RESP 20; TEMP 36.8; O2SAT 97
[2022-08-07 11:30] LABS: Glucose, Whole Blood 247 mg/dL (60-115)
[2022-08-07 11:56] LABS: Estimated Average Glucose 137 mg/dL; Hemoglobin A1C 169.1542 umol/L; Hemoglobin A1c % 6.4 %
[2022-08-07 12:15] LABS: Influenza A PCR NEGATIVE (Negative); Influenza B PCR NEGATIVE (Negative); Resp Syncy Virus RNA Qual PCR NEGATIVE (Negative); SARS COV2 PCR INHOUSE NEGATIVE (Negative)
--- NOTE | 2022-08-07 12:30 | P.DS_ITS ---
DS: Providers Provider Date of Service: 08/07/22 Date of admission: 08/02/22 14:38 Primary care physician: None Physician Consults: 08/04/22 11:59 Consult to Thoracic Surgery Routine Consulting Provider: Pancho Mcgee Reason for consultation: needs dual chamber pacer Has provider been notified: No DS: Diagnosis Discharge Diagnosis (1) Complete heart block: Status: Acute (2) Wenckebach: Status: Acute (3) Pacemaker: Status: Acute (4) Pneumonia: Status: Acute DS: Summary Hospital Course Hospital Course: History of presenting illness Date of Service: 08/02/22 Attending physician on admission: Jalil Jacobs Chief Complaint: confusion ?this is a 77-year-old [place] Islander-speaking male who was brought to the emergency department due to confusion.? History was obtained with the assistance of a official court interpreter but even so patient was confused tonight unable to provide any significant history.? History was primarily obtained from his stepdaughter at the bedside.? She states that her brother went to the patient's house yesterday and noted that he was unable to get up off the couch.? He called the ambulance but the patient refused to go in the ambulance.? Today he appeared even worse and more confused and they brought him to the hospital for evaluation.? The patient does endorse a productive cough but denies any shortness of breath, abdominal pain, diarrhea.? He? also reports intermittent dysuria.? He has no known recent sick contacts.? Today in the emergency department due to confusion he had CT scan of the brain which showed no acute changes.? Chest x-ray showed probable left long pneumonia.? He had no evidence of leukocytosis, was afebrile.? He was treated with IV ceftriaxone and IV azithromycin. ? The patient's stepdaughter states that the patient does not have a PCP and is not compliant with taking any medication.? He has not followed up any medical providers since last time he was in the hospital. Due to his confusion and weakness the decision was made to admit him to the hospital for further management. Hospital course 77-year-old [place] Islander-speaking male with history of diabetes noncompliant with medication who was brought to the emergency department by family after being found to be weak and confused patient noted to have Complete heart block/Mobitz type 1 second-degree AV block, status post pacemaker placement on 08/05,Postoperatively doing fine denies left anterior chest wall pain, left arm in sling, recommend to follow post pacemaker instructions and follow-up with thoracic surgery. acute toxic metabolic encephalopathy. Patient likely has mild cognitive impairment, acute confusion resolved, CT brain negative, UA unremarkable, no neurological deficit noted on exam, spoke with patient's step child Grupo Bernal he agreed that patient has been forgetful in last few months, and that is gradually progressing. Continue good blood pressure and blood sugar control. community-acquired pneumonia patient treated with 5 day course of antibiotic, is afebrile with stable oxygenation. diabetes patient not on home medications hemoglobin A1c 6.4 with average blood glucose of 137 in-hospital patient noted to have blood sugars up to 300 range started on metformin 100 mg daily and recommend ADA diet elevated blood pressure readings with no diagnosis of hypertension started on Norvasc 5 mg with better blood sugar control Chronically elevated trop but flat no chest pains, likely due to heart block no further intervention as per Cardiology. generalized weakness seen by Physical therapy they recommend short-term rehab. Time Spent with Patient Time attestation: Total time managing care of this patient today ____ minutes. Discharge coordination time: Greater than 30 minutes Quality: Safe Use of Opioids Does Pt have an Active Cancer Diagnosis on the Problem List?: No Quality: Stroke Does the patient have a stroke diagnosis?: No Physical Exam Vital Signs: Vital Signs: Last Vital Signs Temp 98.2 F 08/07/22 11:24 Pulse 75 08/07/22 11:24 Resp 20 08/07/22 11:24 BP 131/69 08/07/22 11:24 Pulse Ox 97 08/07/22 11:24 O2 Del Method 08/07/22 11:24 O2 Flow Rate 2 08/05/22 23:42 BMI result Body Mass Index 29.3 Const: Other: General awake alert to place and person, in no acute distress.? Neck? no JVD. Left anterior chest wall pacemaker site well healed no tenderness mild bruising CVS? regular rate rhythm, Respiratory lungs clear to auscultation, no respiratory distress, no wheeze, no rhonchi. Gastrointestinal abdomen soft, nontender, bowel sounds audible, no guarding , no rigidity. Extremities no edema. Neuro? moving all 4 extremity speech clear. Skin no rash Psych poor insight DS: Data Data Completed and Pending Completed studies during hospitalization [Text1]: Procedures Introduction of Remdesivir Anti-infective into Peripheral Vein, Percutaneous Approach, [employer] 5 (08/05/20) Labs on day of discharge: Laboratory Results - last 24 hr 08/06/22 08/06/22 08/07/22 16:17 19:54 06:07 WBC 11.1 H RBC 5.03 Hgb 14.2 Hct 42.8 MCV 85.1 MCH 28.2 MCHC 33.2 RDW 13.4 Plt Count 231 MPV 11.3 Absolute Nucleated RBC 0.000 Nucleated RBC % (auto) 0.0 POC Glucose 108 176 H Estimat Average Glucose Hemoglobin A1c % Influenza Type A (PCR) Influenza Type B (PCR) RSV RNA Qual (PCR) SARS-CoV-2 RNA (RT-PCR) 08/07/22 08/07/22 08/07/22 06:07 07:22 11:15 WBC RBC Hgb Hct MCV MCH MCHC RDW Plt Count MPV Absolute Nucleated RBC Nucleated RBC % (auto) POC Glucose 167 H Estimat Average Glucose 137 Hemoglobin A1c % 6.4 Influenza Type A (PCR) NEGATIVE Influenza Type B (PCR) NEGATIVE RSV RNA Qual (PCR) NEGATIVE SARS-CoV-2 RNA (RT-PCR) NEGATIVE 08/07/22 11:25 WBC RBC Hgb Hct MCV MCH MCHC RDW Plt Count MPV Absolute Nucleated RBC Nucleated RBC % (auto) POC Glucose 247 H Estimat Average Glucose Hemoglobin A1c % Influenza Type A (PCR) Influenza Type B (PCR) RSV RNA Qual (PCR) SARS-CoV-2 RNA (RT-PCR) Preliminary micro results at discharge 08/02/22 14:25 Blood Culture - Preliminary Blood - Venous No growth after 48 hours. 08/02/22 14:25 Blood Culture - Preliminary Blood - Venous No growth after 48 hours. Discharge Plan Discharge Anticipated Discharge Date/Time: 08/07/22 10:19 Patient Disposition: er SNF Discharge Diagnosis: Complete heart block status post pacemaker placement Pneumonia Mild cognitive impairment Hypertension Diabetes Referrals: [facility] [Outside] - 1 Week Physician,None [Primary Care Provider] - 1 Week Discharge Medications: New amlodipine 5 mg Tablet 5 mg PO DAILY Qty: 30 0RF Protocol: Hold for SBP< HOLD for SBP < : 90 metformin 500 mg tablet 500 mg PO DAILY Qty: 30 0RF Continued acetaminophen [Tylenol] 325 mg Tablet 650 mg PO Q6H PRN (Reason: Pain) Discharge Orders: Discharge Order (Routine); Ordered 08/07/22 Ordered By: Solomon Downey Diet: Diabetic diet Activity on Discharge: As tolerated Stand Alone Forms: Patient Portal Discharge page Activity Restrictions/Additional Instructions: ACTIVITY: * ARM MOVEMENT RESTRICTIONS: No lifting your left arm over your head or behind your back, no pushing/pulling/lifting anything >10lb with your left arm for 6- 8 weeks. This ensures the pacemaker wires stay in place and do not get pulled out accidentally. Make sure you are doing gentle range of motion exercises with the left arm (such as pendulum exercise) to make sure your elbow and shoulder do not get frozen up. * ARM SLING: Keep the sling on until 08/08/22. You may then take the sling off and leave it off. HOWEVER, if you are noticing a difficulty limiting your left arm movement (as outline above) then wear your sling during the day to make sure you are adhering to the restrictions above. * Ask your doctor when you can expect to return to work. * You can still exercise. It is good for your body and your heart. Talk with your doctor about an exercise plan. INCISION CARE: * You may shower starting 08/08/2022. Sponge bathe only until then. * Do not submerge yourself in water (baths, pools, etc.) for 2 weeks. * Monitor the incision for increased redness, swelling, bruising, pain, open area, or drainage. OTHER PRECAUTIONS: * Before you receive any treatment, tell all healthcare providers (including your dentist) that you have a pacemaker. * You will be given an ID card that contains information about your pacemaker. Always carry this card with you. You can show this card if your pacemaker sets off a metal detector. You should also show it to avoid screening with a hand-held security wand. * Keep your cell phone away from your pacemaker. Do not carry the phone in your shirt pocket, even it if is turned off. * Avoid strong magnets. Examples are those used in MRI's or in hand-held security wands. * Avoid strong electrical coto. Examples are those made by radio transmitting towers, [employer] radios, and heavy-duty electrical equipment. * Avoid leaning over the open rendon of a running car. A running engine creates an electrical field. Most household and yard appliances will not cause any problems. If you use any large power tools, such as an industrial security researcher, talk with your doctor. WHEN TO CALL YOUR DOCTOR: Call your doctor immediately if you have any of the following: * Dizziness * Chest pain * Lack of energy * Fainting spells * Twitching chest muscles * Rapid pule or pounding heartbeat * Shortness of breath * Pain around your pacemaker * Fever above 100.4 F (38 C) or other signs of infection (redness, swelling, drainage, or warmth at the incision site). * Hiccups that will not stop FOLLOWUP APPOINTMENTS: * You have an appointment with Dr. Mcgee at the [facility] office on 08/22/2022 @ 11:15am to followup on your pacemaker. [facility], 1st floor near [address] entrance [facility] * The Thoracic Surgery office number is if you have any questions or concerns. * Call your job estimator to make an appointment for the next couple weeks. Make regular follow-up appointments with your doctor. He or she will check the pacemaker to make sure it is working properly. Care Plan Goals: Complete heart block status post pacemaker placement, follow-up above post pacemaker instructions Finished course of antibiotic for pneumonia Health Concerns: Diabetes mellitus well controlled follow diabetic diet and monitor blood sugars daily Generalized weakness need PT OT Plan of Treatment: Follow-up with thoracic office as above Assessment: As above
--- NOTE | 2022-08-07 14:20 | PC.NURSE ---
pt to be tranfered to [facility] via EMS. no IV access prior to discharge, monitor off, pt alert and no more disoriented than baseline. vitals within parameters. nurse to nurse report to be given to receiving facility.
== END 2022-08-07 14:26 | disposition skilled nursing facility (03) | DRG 242 ==
LOC: HO.ED 13:54 → HO.EDOVER 14:48 → HO.IMC 16:46
PROVIDERS: Nurse Practitioner Acute Care; Physician Assistant; Surgery; Admitting Provider Physician Assistant Medical; Emergency Provider Emergency Medicine; Visit Provider Hospitalist
PROC: 0JH606Z Insertion of Pacemaker, Dual Chamber into Chest Subcutaneous Tissue and Fascia, Open Approach (ICD-10-PCS; principal; 2022-08-05 15:30)
DX: I44.2 Atrioventricular block, complete (principal); G92.8 Other toxic encephalopathy; J18.9 Pneumonia, unspecified organism; E11.9 Type 2 diabetes mellitus without complications; R00.1 Bradycardia, unspecified; R03.0 Elevated blood-pressure reading, without diagnosis of hypertension; I44.1 Atrioventricular block, second degree; F03.90 Unspecified dementia, unspecified severity, without behavioral disturbance, psychotic disturbance, mood disturbance, and anxiety; Z20.822 Contact with and (suspected) exposure to COVID-19; Z91.14 Patient's other noncompliance with medication regimen; Z91.199 Patient's noncompliance with other medical treatment and regimen due to unspecified reason; Z79.84 Long term (current) use of oral hypoglycemic drugs; Z79.899 Other long term (current) drug therapy
CPT/HCPCS: 0241U; 36415; 70450; 71045; 80048; 80076; 81001; 82947; 83036; 83605; 83690; 83880; 84484; 85025; 85027; 85610; 85730; 86850; 86900; 86901; 87040; 87633; 93005; 96360; 96361; 97162; 97530; 99285; C1785; C1892; C1898; J0131; J0456; J0696; J1650; J2250; J2795; J3010; J3370

== ENCOUNTER → 2023-08-10 23:59 | Outpatient (BNV) | payer OTHER, SELFPAY ==
--- NOTE | 2023-09-20 13:02 | A.OFFVIS_ITS ---
Intake Intake Visit Reasons: Remote Device Check- [employer] Allergies No Known Allergies Allergy (Verified 08/05/20 11:46) [facility] Medical History (Updated 09/17/23 @ 11:48 by TAI Vanegas) History of COVID-19 Pacemaker (~07/2022) Wenckebach Diabetes Pneumonia Surgical History (Updated 08/19/22 @ 12:53 by Elva Barnett PA-C) History of cardiac pacemaker (~2022) Social History Household Members: None Housing: Apartment Alcohol intake: unknown Patient Tobacco Use Status: Never used Tobacco Second Hand Smoke Exposure: No Substance Use Type: Unknown service: No Current occupational status: disabled Office Procedures Cardiac Device Check Cardiac Device Check Details: Date of service- 08/10/2023 ; Battery life >4 years; normal lead parameters; AP 18%; SPEECH PATHOLOGY ASSISTANT >%; AF noted, duration 1 day. Overall normal device function. [id number] Cardiac Device Interrogation, pacemaker Procedure code (CPT) selection complete Assessment & Plan Assessment & Plan (1) Paroxysmal A-fib: Code(s): I48.0 - Paroxysmal atrial fibrillation Plan x Coding Level of Care Code Procedure Only Diagnoses Paroxysmal A-fib I48.0 CPT Codes Cardiac Device Check - Cardiac Device 12: [id number] Cardiac Device Interrogation, pacemaker ([id number])
== END ==
PROVIDERS: Visit Provider Internal Medicine
DX: I48.0 Paroxysmal atrial fibrillation (principal); Z95.0 Presence of cardiac pacemaker
CPT/HCPCS: 93294

== ENCOUNTER → 2023-11-10 23:59 | Outpatient (BNV) | payer OTHER, SELFPAY ==
--- NOTE | 2023-11-10 15:35 | MHC.OFFVIS ---
Intake Visit Reasons: Remote device check- [facility] Allergies No Known Allergies Allergy (Verified 08/05/20 11:46) [facility] Medical History (Updated 09/17/23 @ 11:48 by TAI Vanegas) History of COVID-19 Pacemaker (~07/2022) Wenckebach Diabetes Pneumonia Surgical History (Updated 08/19/22 @ 12:53 by Elva Barnett PA-C) History of cardiac pacemaker (~2022) Social History Household Members: None Housing: Apartment Alcohol intake: unknown Patient Tobacco Use Status: Never used Tobacco Second Hand Smoke Exposure: No Substance Use Type: Unknown service: No Current occupational status: disabled Office Procedures Cardiac Device Check Cardiac Device Check Details: Date of service- 11/10/2023 ; Battery life >7 years; normal lead parameters; AP 22%; 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 Overall normal device function. [id number] Cardiac Device Interrogation, pacemaker Procedure code (CPT) selection complete Assessment & Plan Assessment & Plan (1) Paroxysmal A-fib: Code(s): I48.0 - Paroxysmal atrial fibrillation Category: Medical Plan x Coding Level of Care Code Procedure Only Diagnoses Paroxysmal A-fib I48.0 CPT Codes Cardiac Device Check - Cardiac Device 12: [id number] Cardiac Device Interrogation, pacemaker ([id number])
== END ==
PROVIDERS: Visit Provider Internal Medicine
DX: I48.0 Paroxysmal atrial fibrillation (principal); Z95.0 Presence of cardiac pacemaker
CPT/HCPCS: 93294

== ENCOUNTER → 2024-02-09 23:59 | Outpatient (BNV) | payer OTHER, SELFPAY ==
--- NOTE | 2024-02-13 14:25 | A.OFFVIS_ITS ---
Intake Visit Reasons: Remote device check- [facility] Allergies No Known Allergies Allergy (Verified 08/05/20 11:46) [facility] Medical History (Updated 09/17/23 @ 11:48 by TAI Vanegas) History of COVID-19 Pacemaker (~07/2022) Wenckebach Diabetes Pneumonia Surgical History (Updated 08/19/22 @ 12:53 by Elva Barnett PA-C) History of cardiac pacemaker (~2022) Social History Household Members: None Housing: Apartment Alcohol intake: unknown Patient Tobacco Use Status: Never used Tobacco Second Hand Smoke Exposure: No Substance Use Type: Unknown service: No Current occupational status: disabled Office Procedures Cardiac Device Check Cardiac Device Check Details: Date of service- 02/09/2024 ; Battery life >7 years; normal lead parameters; AP 32%; 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 Overall normal device function. [id number] Cardiac Device Interrogation, pacemaker Procedure code (CPT) selection complete Assessment & Plan Assessment & Plan (1) Paroxysmal A-fib: Code(s): I48.0 - Paroxysmal atrial fibrillation Category: Medical (2) Pacemaker: Onset Date: ~07/2022 Comment: ([facility] DC[facility] - placed 08/05/2022) Code(s): Z95.0 - Presence of cardiac pacemaker Category: Medical Plan x Coding Level of Care Code Procedure Only Diagnoses Paroxysmal A-fib I48.0 Pacemaker Z95.0 CPT Codes Cardiac Device Check - Cardiac Device 12: [id number] Cardiac Device Interrogation, pacemaker ([id number])
== END ==
PROVIDERS: Visit Provider Internal Medicine
DX: I48.0 Paroxysmal atrial fibrillation (principal); Z95.0 Presence of cardiac pacemaker
CPT/HCPCS: 93294

== ENCOUNTER → 2024-05-10 23:59 | Outpatient (BNV) | payer OTHER, SELFPAY ==
--- NOTE | 2024-05-12 10:02 | MHC.OFFVIS ---
Intake Visit Reasons: Remote device check- [facility] Allergies No Known Allergies Allergy (Verified 08/05/20 11:46) [facility] Medical History (Updated 05/12/24 @ 10:04 by Stefan Olmos MD) History of COVID-19 Pacemaker (~07/2022) Wenckebach Diabetes Pneumonia Surgical History (Updated 08/19/22 @ 12:53 by Elva Barnett PA-C) History of cardiac pacemaker (~2022) Social History Household Members: None Housing: Apartment Alcohol intake: unknown Patient Tobacco Use Status: Never used Tobacco Second Hand Smoke Exposure: No Substance Use Type: Unknown service: No Current occupational status: disabled Office Procedures Cardiac Device Check Cardiac Device Check Details: Date of service- 05/10/2024 ; Battery life >7 years; normal lead parameters; AP 28%; TREE WRAPPER >99%; no significant arrhythmias. Overall normal device function. [id number] Cardiac Device Interrogation, pacemaker Procedure code (CPT) selection complete Assessment & Plan Assessment & Plan (1) Pacemaker: Onset Date: ~07/2022 Comment: ([facility] DCPP - placed 08/05/2022) Code(s): Z95.0 - Presence of cardiac pacemaker Category: Medical (2) Complete heart block: Code(s): I44.2 - Atrioventricular block, complete Category: Medical Plan x Coding Level of Care Code Procedure Only Diagnoses Pacemaker Z95.0 Complete heart block I44.2 CPT Codes Cardiac Device Check - Cardiac Device 12: [id number] Cardiac Device Interrogation, pacemaker ([id number])
== END ==
PROVIDERS: Visit Provider Internal Medicine
DX: I44.2 Atrioventricular block, complete (principal); Z95.0 Presence of cardiac pacemaker
CPT/HCPCS: 93294

== ENCOUNTER → 2024-08-09 23:59 | Outpatient (BNV) | payer OTHER, SELFPAY ==
--- NOTE | 2024-08-11 16:07 | A.OFFVIS_ITS ---
Intake Visit Reasons: Remote device check- [facility] Allergies No Known Allergies Allergy (Verified 08/05/20 11:46) [facility] Medical History (Updated 05/12/24 @ 10:04 by Stefan Olmos MD) History of COVID-19 Pacemaker (~07/2022) Wenckebach Diabetes Pneumonia Surgical History (Updated 08/19/22 @ 12:53 by Elva Barnett PA-C) History of cardiac pacemaker (~2022) Social History Household Members: None Housing: Apartment Alcohol intake: unknown Patient Tobacco Use Status: Never used Tobacco Second Hand Smoke Exposure: No Substance Use Type: Unknown service: No Current occupational status: disabled Office Procedures Cardiac Device Check Cardiac Device Check Details: Date of service- 08/09/2024 ; Battery life >6 years; normal lead parameters; AP 30%; 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 Overall normal device function. [id number] Cardiac Device Interrogation, pacemaker Procedure code (CPT) selection complete Assessment & Plan Assessment & Plan (1) Pacemaker: Onset Date: ~07/2022 Comment: ([facility] DCPP - placed 08/05/2022) Code(s): Z95.0 - Presence of cardiac pacemaker Category: Medical (2) Complete heart block: Code(s): I44.2 - Atrioventricular block, complete Category: Medical Plan x Coding Level of Care Code Procedure Only Diagnoses Pacemaker Z95.0 Complete heart block I44.2 CPT Codes Cardiac Device Check - Cardiac Device 12: [id number] Cardiac Device Interrogation, pacemaker ([id number])
== END ==
PROVIDERS: Visit Provider Internal Medicine
DX: I44.2 Atrioventricular block, complete (principal); Z95.0 Presence of cardiac pacemaker
CPT/HCPCS: 93294

== ENCOUNTER → 2024-11-08 23:59 | Outpatient (BNV) | payer OTHER, SELFPAY ==
--- NOTE | 2024-11-13 15:14 | MHC.OFFVIS ---
Intake Visit Reasons: Remote device check- [facility] Allergies No Known Allergies Allergy (Verified 08/05/20 11:46) [facility] Medical History (Updated 05/12/24 @ 10:04 by Stefan Olmos MD) History of COVID-19 Pacemaker (~07/2022) Wenckebach Diabetes Pneumonia Surgical History (Updated 08/19/22 @ 12:53 by Elva Barnett PA-C) History of cardiac pacemaker (~2022) Social History Household Members: None Housing: Apartment Alcohol intake: unknown Patient Tobacco Use Status: Never used Tobacco Second Hand Smoke Exposure: No Substance Use Type: Unknown service: No Current occupational status: disabled Office Procedures Cardiac Device Check Cardiac Device Check Details: Date of service- 11/08/2024 ; Battery life >6 years; normal lead parameters; AP 30%; 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 Overall normal device function. [id number] Cardiac Device Interrogation, pacemaker Procedure code (CPT) selection complete Assessment & Plan Assessment & Plan (1) Pacemaker: Onset Date: ~07/2022 Comment: ([facility] DCPP - placed 08/05/2022) Code(s): Z95.0 - Presence of cardiac pacemaker Category: Medical (2) Complete heart block: Code(s): I44.2 - Atrioventricular block, complete Category: Medical Plan x Coding Level of Care Code Procedure Only Diagnoses Pacemaker Z95.0 Complete heart block I44.2 CPT Codes Cardiac Device Check - Cardiac Device 12: [id number] Cardiac Device Interrogation, pacemaker ([id number])
== END ==
PROVIDERS: Visit Provider Internal Medicine
DX: I44.2 Atrioventricular block, complete (principal); Z95.0 Presence of cardiac pacemaker
CPT/HCPCS: 93294